=== PATIENT | male | born 1950 | race American Indian/Alaskan Native ===

== ENCOUNTER 2018-01-16 13:07 | Inpatient (IN) | payer MEDICARE ==
--- NOTE | 2018-01-16 13:38 | Emergency Department Report ---
ED Shortness of Breath HPI - General Chief Complaint: Dyspnea/Respdistress Stated Complaint: DIFFICULTY OF BREATHING Time Seen by Provider: 01/16/18 13:36 Source: patient, EMS Mode of arrival: Stretcher Limitations: No Limitations - History of Present Illness Initial Comments: Patient was transferred from the cardiology clinic where he was seen this morning and they noticed that she seemed short of breath they called ambulance and transferred him to the emergency room. Patient has a history of atrial fibrillation and congestive heart failure with ejection fraction of 10%. MD Complaint: shortness of breath, chest pain -: Sudden Radiation: left arm Severity: mild Pain Scale: 2 Quality: aching Consistency: now resolved Improves With: oxygen Worsens With: nothing Known History Of: congestive heart failure Associated Symptoms: denies other symptoms Treatments Prior to Arrival: oxygen - Related Data Home Medications Medication Instructions Recorded Confirmed Last Taken Garlic 1,500 mg PO QDAY 10/21/15 01/16/18 01/03/16 1500mg Pumpkin Seed Oil/Saw [place] 1 tab PO QDAY 10/21/15 01/16/18 01/03/16 1 tab Previous Rx's Medication Instructions Recorded Last Taken Type Arginine [l-Arginine] 500 mg PO QDAY #30 capsule 12/04/17 Unknown Rx B-12 5,000 Mcg Subl 2,500 mcg SL 1XW #30 12/04/17 Unknown Rx Carvedilol [Coreg] 12.5 mg PO BID #60 tablet 12/04/17 Unknown Rx Cholecalciferol Vit D3 [Vitamin D3] 2,000 unit PO DAILY #30 tablet 12/04/17 Unknown Rx Digoxin [Lanoxin] 0.125 mg PO DAILY@1700 #30 tablet 12/04/17 Unknown Rx Furosemide [Lasix TAB] 20 mg PO BID #60 tablet 12/04/17 Unknown Rx Multivitamin Tab W-MINERAL 1 each PO QDAY #30 tablet 12/04/17 Unknown Rx [Multiple Vitamin/Mineral (Theragran M)] [place]-3 Fatty Acids/Fish Oil [Fish 1,000 mg PO DAILY #30 capsule 12/04/17 Unknown Rx Oil] Potassium Chloride [K-Dur] 10 meq PO DAILY #30 tablet 12/04/17 Unknown Rx Pravastatin [Pravachol] 20 mg PO QDAY #30 tablet 12/04/17 Unknown Rx Rivaroxaban [Xarelto] 20 mg PO QDAY #30 tablet 12/04/17 Unknown Rx Sacubitril/Valsartan [Entresto 97 1 each PO DAILY #30 tablet 12/04/17 Unknown Rx mg-103 mg Tablet] Spironolactone [Aldactone] 25 mg PO DAILY #30 tablet 12/04/17 Unknown Rx Ubidecarenone [Co Q-10] 200 mg PO DAILY #30 capsule 12/04/17 Unknown Rx Allergies Allergy/AdvReac Type Severity Reaction Status Date / Time No Known Allergies Allergy Unverified 10/20/15 14:56 ED Review of Systems ROS: Stated complaint: DIFFICULTY OF BREATHING Other details as noted in HPI Comment: All other systems reviewed and negative Constitutional: denies: chills, fever Eyes: denies: eye pain ENT: denies: ear pain Respiratory: orthopnea, shortness of breath, SOB with exertion, SOB at rest Cardiovascular: chest pain, dyspnea on exertion, orthopnea, edema Endocrine: no symptoms reported Gastrointestinal: denies: abdominal pain, nausea, vomiting Genitourinary: denies: urgency, dysuria, frequency Musculoskeletal: denies: back pain Skin: denies: rash, lesions Neurological: denies: headache, weakness, numbness, paresthesias Psychiatric: denies: anxiety, depression Hematological/Lymphatic: denies: easy bleeding, easy bruising ED Past Medical Hx - Past Medical History Hx Hypertension: Yes Hx CVA: No Hx Heart Attack/AMI: Yes Hx Congestive Heart Failure: Yes Hx Diabetes: No Hx Deep Vein Thrombosis: No Hx Pulmonary Embolism: No Hx GERD: Yes Hx Liver Disease: No Hx Renal Disease: No Hx Sickle Cell Disease: No Hx Arthritis: No Hx Headaches / Migraines: No Hx Seizures: No Hx Kidney Stones: No Hx Psychiatric Treatment: No Hx Asthma: No Hx COPD: Yes Hx Tuberculosis: No Hx Dementia: No Hx HIV: No - Surgical History Hx Coronary Stent: No Hx Open Heart Surgery: No Hx Pacemaker: No Hx Internal Defibrillator: Yes Hx Cholecystectomy: No Hx Appendectomy: No Hx Breast Surgery: No Additional Surgical History: Cardiac Cath,Biopsy - Social History Smoking Status: Current Some Day Smoker - Medications Home Medications: Home Medications Medication Instructions Recorded Confirmed Last Taken Type Garlic 1,500 mg PO QDAY 10/21/15 01/16/18 01/03/16 History 1500mg Pumpkin Seed Oil/Saw [place] 1 tab PO QDAY 10/21/15 01/16/18 01/03/16 History 1 tab Arginine [l-Arginine] 500 mg PO QDAY #30 capsule 12/04/17 01/16/18 Unknown Rx B-12 5,000 Mcg Subl 2,500 mcg SL 1XW #30 12/04/17 01/16/18 Unknown Rx Carvedilol [Coreg] 12.5 mg PO BID #60 tablet 12/04/17 01/16/18 Unknown Rx Cholecalciferol Vit D3 [Vitamin D3] 2,000 unit PO DAILY #30 tablet 12/04/17 Unknown Rx Digoxin [Lanoxin] 0.125 mg PO DAILY@1700 #30 tablet 12/04/17 01/16/18 Unknown Rx Furosemide [Lasix TAB] 20 mg PO BID #60 tablet 12/04/17 01/16/18 Unknown Rx Multivitamin Tab W-MINERAL 1 each PO QDAY #30 tablet 12/04/17 01/16/18 Unknown Rx [Multiple Vitamin/Mineral (Theragran M)] [place]-3 Fatty Acids/Fish Oil [Fish 1,000 mg PO DAILY #30 capsule 12/04/17 Unknown Rx Oil] Potassium Chloride [K-Dur] 10 meq PO DAILY #30 tablet 12/04/17 01/16/18 Unknown Rx Pravastatin [Pravachol] 20 mg PO QDAY #30 tablet 12/04/17 01/16/18 Unknown Rx Rivaroxaban [Xarelto] 20 mg PO QDAY #30 tablet 12/04/17 01/16/18 Unknown Rx Sacubitril/Valsartan [Entresto 97 1 each PO DAILY #30 tablet 12/04/17 01/16/18 Unknown Rx mg-103 mg Tablet] Spironolactone [Aldactone] 25 mg PO DAILY #30 tablet 12/04/17 01/16/18 Unknown Rx Ubidecarenone [Co Q-10] 200 mg PO DAILY #30 capsule 12/04/17 01/16/18 Unknown Rx ED Physical Exam - General Limitations: No Limitations General appearance: alert, in distress - Head Head exam: Present: atraumatic, normocephalic, normal inspection - Eye Eye exam: Present: normal appearance, PERRL, EOMI Pupils: Present: normal accommodation - ENT ENT exam: Present: normal exam, normal orophraynx, mucous membranes moist - Neck Neck exam: Present: normal inspection, full ROM. Absent: tenderness - Respiratory Respiratory exam: Present: normal lung sounds bilaterally, rales, rhonchi. Absent: respiratory distress, wheezes, stridor - Cardiovascular Cardiovascular Exam: Present: tachycardia, S3 - GI/Abdominal GI/Abdominal exam: Present: soft, normal bowel sounds. Absent: distended, tenderness, guarding, rebound, rigid - Extremities Exam Extremities exam: Present: normal inspection, full ROM, normal capillary refill , pedal edema. Absent: tenderness - Back Exam Back exam: Present: normal inspection, full ROM. Absent: tenderness - Neurological Exam Neurological exam: Present: alert, oriented X3, CN II-XII intact - Psychiatric Psychiatric exam: Present: normal affect, normal mood - Skin Skin exam: Present: warm, dry, intact, normal color. Absent: rash ED Course Vital Signs 01/16/18 01/16/18 01/16/18 13:22 13:31 13:38 Temperature 97.8 F Pulse Rate 106 H Respiratory 37 H 32 H Rate Blood Pressure 99/71 O2 Sat by Pulse 83 L 96 Oximetry 01/16/18 13:45 Temperature Pulse Rate 114 H Respiratory 34 H Rate Blood Pressure 109/74 O2 Sat by Pulse Oximetry - Reevaluation(s) Reevaluation #1: 01/16/18 16:34 Patient was seen in the ED by the mercantile agent and their recommendations for patient management including admission to the hospitalist was documented. The patient will be admitted to the hospital by the hospitalist bonbon dipper Dr. Fernández for further evaluation and management in conjunction with cardiology service. ED Medical Decision Making - Lab Data Result diagrams: 01/16/18 13:48 01/16/18 13:48 - EKG Data -: EKG Interpreted by Me Rate: tachycardia - EKG Data When compared to previous EKG there are: no significant change Interpretation: nonspecific ST-T wave shavonne 01/16/18 16:28 Atrial Fibrillation with RVR, No STEMI. - Radiology Data Radiology results: report reviewed, image reviewed - Medical Decision Making CHF Exacerbation. Shortness of Breath. Atrial fibrillation with RVR. Critical Care Time: Yes Critical care time in (mins) excluding proc time.: 45 Critical care attestation.: If time is entered above; I have spent that time in minutes in the direct care of this critically ill patient, excluding procedure time. ED Disposition Clinical Impression: Atrial fibrillation with RVR, Elevated troponin, NSTEMI (non-ST elevated myocardial infarction), Shortness of breath CHF exacerbation Qualifiers: Heart failure type: unspecified Qualified Code(s): I50.9 - Heart failure, unspecified CHF exacerbation Qualifiers: Heart failure type: unspecified Qualified Code(s): I50.9 - Heart failure, unspecified Disposition: OP ADMIT IP TO THIS HOSP Is pt being admited?: Yes Does the pt Need Aspirin: Yes Condition: Stable Referrals: PRIMARY CARE, [Primary Care Provider] - 3-5 Days Time of Disposition: 16:00
[2018-01-16 14:03] LABS: Basophils % (Auto) 0.8 % (0.0-1.8); Eosinophils # (Auto) 0.1 K/mm3 (0.0-0.4); Eosinophils % (Auto) 1.7 % (0.0-4.3); Hematocrit 40.1 % (35.5-45.6); Hemoglobin 13.8 gm/dl (11.8-15.2); Lymphocytes # (Auto) 0.7 K/mm3 (1.2-5.4); Lymphocytes % (Auto) 18.4 % (13.4-35.0); Mean Corpuscular HGB Conc 34 % (32-34); Mean Corpuscular Hemoglobin 37 pg (28-32); Mean Corpuscular Volume 107 fl (84-94); Monocytes # (Auto) 0.4 K/mm3 (0.0-0.8); Monocytes % (Auto) 10.6 % (0.0-7.3); Red Blood Count 3.77 M/mm3 (3.65-5.03); Red Cell Distribution Width 14.3 % (13.2-15.2)
[2018-01-16 14:04] LABS: Platelet Count 97 K/mm3 (140-440)
[2018-01-16 14:18] LABS: INR 4.82 (0.87-1.13)
[2018-01-16 14:19] LABS: Partial Thromboplastin Time 47.9 Sec. (24.2-36.6)
[2018-01-16 14:23] LABS: Creatine Kinase MB 1.5 ng/mL (0.0-4.0)
[2018-01-16 14:26] LABS: Alanine Aminotransferase 17 units/L (7-56); Albumin 3.8 g/dL (3.9-5); BUN/Creatinine Ratio 47; Blood Urea Nitrogen 66 mg/dL (9-20); Calcium 9.8 mg/dL (8.4-10.2); Hemolysis Index 3
[2018-01-16 14:37] LABS: HDL Cholesterol 30 mg/dL (40-59); LDL Cholesterol,Direct 49 mg/dL (50-130)
[2018-01-16 14:43] LABS: Bilirubin,Urine NEG (Negative); Blood,Urine NEG (Negative); Color,Urine Yellow (Yellow); Hyaline Casts,Urine 3 /LPF; Protein,Urine <15 mg/dL mg/dL (Negative)
--- NOTE | 2018-01-16 15:00 | Consultation ---
History of Present Illness Consult date: 01/16/18 Requesting physician: TIGIST DEJESUS Consult reason: atrial fibrillation, congestive heart failure History of present illness: The pt is a 67-year-old male with a past medical history of significant for NICMP, chronic systolic HF, AICD in situ, chronic atrial fibrillation (was anticoagulated on Xarelto), CKD, HTN, HLP, ETOH use, tobacco use, noncompliance. He is followed in our office by Dr. Richards. He presented to our [place] office today for labs and device check and voiced complaints of fatigue, progressively worsening SOB, BLE edema. He was also found to have AFib with RVR. He was referred to ED for further eval/management. He states that his symptoms have been present for about 4 days. He denies any chest pain, palpitations, n/v, diaphoresis, dizziness or syncope. He reports compliance with his medication regimen. He reports that he quit drinking alcohol 1 week ago. LHC done 10/2015 showed normal coronaries, large epicardial vessels, severe LV dysfunction. Echo done 11/2017 showed EF 5-10%, LV severely dilated, mild LVH, restrictive diastolic filling, RV mod dilated, RV systolic function mildly reduced, pacemaker wire in RV, RA severely dilated, severe MR, mod to severe TR, pulm HTN with RVSP 67mmHg, trivial pericardial effusion. Past History Past Medical History: heart failure, hypertension, hyperlipidemia Social history: alcohol abuse. denies: smoking Medications and Allergies Allergies Allergy/AdvReac Type Severity Reaction Status Date / Time No Known Allergies Allergy Unverified 10/20/15 14:56 Home Medications Medication Instructions Recorded Confirmed Last Taken Type Garlic 1,500 mg PO QDAY 10/21/15 12/01/17 01/03/16 History 1500mg Pumpkin Seed Oil/Saw [place] 1 tab PO QDAY 10/21/15 12/01/17 01/03/16 History 1 tab Arginine [l-Arginine] 500 mg PO QDAY #30 capsule 12/04/17 Unknown Rx B-12 5,000 Mcg Subl 2,500 mcg SL 1XW #30 12/04/17 Unknown Rx Carvedilol [Coreg] 12.5 mg PO BID #60 tablet 12/04/17 Unknown Rx Cholecalciferol Vit D3 [Vitamin D3] 2,000 unit PO DAILY #30 tablet 12/04/17 Unknown Rx Digoxin [Lanoxin] 0.125 mg PO DAILY@1700 #30 tablet 12/04/17 Unknown Rx Furosemide [Lasix TAB] 20 mg PO BID #60 tablet 12/04/17 Unknown Rx Multivitamin Tab W-MINERAL 1 each PO QDAY #30 tablet 12/04/17 Unknown Rx [Multiple Vitamin/Mineral (Theragran M)] [place]-3 Fatty Acids/Fish Oil [Fish 1,000 mg PO DAILY #30 capsule 12/04/17 Unknown Rx Oil] Potassium Chloride [K-Dur] 10 meq PO DAILY #30 tablet 12/04/17 Unknown Rx Pravastatin [Pravachol] 20 mg PO QDAY #30 tablet 12/04/17 Unknown Rx Rivaroxaban [Xarelto] 20 mg PO QDAY #30 tablet 12/04/17 Unknown Rx Sacubitril/Valsartan [Entresto 97 1 each PO DAILY #30 tablet 12/04/17 Unknown Rx mg-103 mg Tablet] Spironolactone [Aldactone] 25 mg PO DAILY #30 tablet 12/04/17 Unknown Rx Ubidecarenone [Co Q-10] 200 mg PO DAILY #30 capsule 12/04/17 Unknown Rx Review of Systems Constitutional: no fever, no chills, no sweats Ears, nose, mouth and throat: no ear pain, no nose pain, no sinus pressure, no sinus pain Cardiovascular: orthopnea, edema, shortness of breath, dyspnea on exertion, paroxysmal nocturnal dyspnea, leg edema, no chest pain, no palpitations, no rapid/irregular heart beat, no syncope, no lightheadedness, no high blood pressure Respiratory: shortness of breath, dyspnea on exertion, no cough, no congestion, no wheezing, no pain on inspiration Gastrointestinal: no abdominal pain, no nausea, no vomiting, no diarrhea, no constipation, no change in bowel habits Genitourinary Male: no dysuria, no hematuria, no flank pain, no discharge, no urinary frequency, no urinary hesitancy Musculoskeletal: no neck stiffness, no neck pain, no shooting arm pain, no arm numbness/tingling, no low back pain, no shooting leg pain, no leg numbness/ tingling, no redness of joints Integumentary: no rash, no pruritis, no redness, no sores, no wounds Neurological: no head injury, no paralysis, no weakness, no parathesias, no numbness, no tingling, no seizures, no syncope Psychiatric: no anxiety Endocrine: no cold intolerance, no heat intolerance Hematologic/Lymphatic: no easy bruising, no easy bleeding Allergic/Immunologic: no urticaria, no wheezing Physical Examination Vital Signs Pulse Ox 83 L 01/16/18 13:22 General appearance: no acute distress HEENT: Positive: PERRL, Normocephaly, Mucus Membranes Moist Neck: Positive: neck supple, trachea midline Cardiac: Positive: irregularly irregular, S1/S2 Lungs: Positive: Decreased Breath Sounds Neuro: Positive: Grossly Intact Abdomen: Positive: Soft. Negative: Tender Skin: Negative: Rash Musculoskeletal: No Pain Extremities: Present: +2 Edema (BLE) Results 01/16/18 13:48 01/16/18 13:48 Cardiac Enzymes 01/16/18 Range/Units 13:48 AST 25 (5-40) units/L CK-MB (CK-2) 1.5 (0.0-4.0) ng/mL Coagulation 01/16/18 Range/Units 13:48 PT 45.5 H (12.2-14.9) Sec. INR 4.82 H (0.87-1.13) APTT 47.9 H (24.2-36.6) Sec. Lipids 01/16/18 Range/Units 13:48 Triglycerides 79 (2-149) mg/dL Cholesterol 84 (50-199) mg/dL HDL Cholesterol 30 L (40-59) mg/dL Cholesterol/HDL Ratio 2.80 % CBC 01/16/18 Range/Units 13:48 WBC 4.0 L (4.5-11.0) K/mm3 RBC 3.77 (3.65-5.03) M/mm3 Hgb 13.8 (11.8-15.2) gm/dl Hct 40.1 (35.5-45.6) % Plt Count 97 L (140-440) K/mm3 Lymph # 0.7 L (1.2-5.4) K/mm3 [place] # 0.4 (0.0-0.8) K/mm3 Eos # 0.1 (0.0-0.4) K/mm3 Baso # 0.0 (0.0-0.1) K/mm3 Comprehensive Metabolic Panel 01/16/18 Range/Units 13:48 Sodium 135 L (137-145) mmol/L Potassium 4.6 (3.6-5.0) mmol/L Chloride 98.7 (98-107) mmol/L Carbon Dioxide 22 (22-30) mmol/L BUN 66 H (9-20) mg/dL Creatinine 1.4 (0.8-1.5) mg/dL Glucose 111 H (75-100) mg/dL Calcium 9.8 (8.4-10.2) mg/dL AST 25 (5-40) units/L ALT 17 (7-56) units/L Alkaline Phosphatase 64 (35-129) units/L Total Protein 7.5 (6.3-8.2) g/dL Albumin 3.8 L (3.9-5) g/dL - Imaging and Cardiology Echo: report reviewed (11/2017 showed EF 5-10%, LV severely dilated, mild LVH, restrictive diastolic filling, RV mod dilated, RV systolic function mildly reduced, pacemaker wire in RV, RA severely dilated, severe MR, mod to severe TR , pulm HTN with RVSP 67mmHg, trivial pericardial effusion. ) Cardiac cath: report reviewed (10/2015 showed normal coronaries, large epicardial vessels, severe LV dysfunction. ) EKG: report reviewed, image reviewed EKG interpretations - Telemetry EKG Rhythm: Atrial Fibrillation - EKG Supraventricular dysrhythmia: atrial fibrillation Assessment and Plan Assessment: Acute on chronic combined systolic and diastolic HF NICMP - EF 5-10% AICD in situ Chronic atrial fibrillation with RVR --> CVR; anticoagulated with Xarelto Minimally elevated troponins - pt denies chest pain; ECG with no acute ischemic changes; nonspecific in setting of acute HF CKD HTN HLP NSVT ETOH use / tobacco use - cessation encouraged H/o noncompliance Plan: Initiate diuresis with IV lasix. Resume home cardiac regimen. Obtain digoxin level. Pt is currently in Afib with CVR. Assessment and plan reviewed with pt at bedside. The patient has been seen in conjunction with Dr. Marshall who agrees with the assessment and plan of care.
--- NOTE | 2018-01-16 15:38 | History and Physical Report ---
History of Present Illness Chief complaint: I cant breathe History of present illness: 67 YO Male with Systolic CHF, Atrial Fib currently on therapeutic anticoagulation, HTN, ETOH Dependence with last drink 1 week ago, HLD, Noncompliance presents to ED for evaluation. Pt states that he has experienced shortness of breath, Orthopnea/PND, bilateral leg swelling and feeling bloated over the past 4 days with worsening symptoms over the past 1 day. Pt was seen and evaluated in his rn appeals's office and was found to have A Fib with RVR and was sent to ED for evaluation. Pt denies fever, chills, CP, Palpitations, Trauma, Tremors, Syncope, Seizures, NVD, diaphoresis, agitation, skin rash, or recent ill contacts. Pt seen and evaluated in ED and found to have CHF Decompensation, Acute Respiratory Failure, and Atrial Fib with RVR. PT admitted to telemetry. Cardiology team consulted in ED. Past History Past Medical History: heart failure, hypertension, hyperlipidemia Past Surgical History: No surgical history, Other (reviewed) Social history: single, alcohol abuse. denies: smoking Family history: no significant family history (reviewed) Medications and Allergies Allergies Allergy/AdvReac Type Severity Reaction Status Date / Time No Known Allergies Allergy Unverified 10/20/15 14:56 Home Medications Medication Instructions Recorded Confirmed Last Taken Type Garlic 1,500 mg PO QDAY 10/21/15 01/16/18 01/03/16 History 1500mg Pumpkin Seed Oil/Saw [place] 1 tab PO QDAY 10/21/15 01/16/18 01/03/16 History 1 tab Arginine [l-Arginine] 500 mg PO QDAY #30 capsule 12/04/17 01/16/18 Unknown Rx B-12 5,000 Mcg Subl 2,500 mcg SL 1XW #30 12/04/17 01/16/18 Unknown Rx Carvedilol [Coreg] 12.5 mg PO BID #60 tablet 12/04/17 01/16/18 Unknown Rx Cholecalciferol Vit D3 [Vitamin D3] 2,000 unit PO DAILY #30 tablet 12/04/17 Unknown Rx Digoxin [Lanoxin] 0.125 mg PO DAILY@1700 #30 tablet 12/04/17 01/16/18 Unknown Rx Furosemide [Lasix TAB] 20 mg PO BID #60 tablet 12/04/17 01/16/18 Unknown Rx Multivitamin Tab W-MINERAL 1 each PO QDAY #30 tablet 12/04/17 01/16/18 Unknown Rx [Multiple Vitamin/Mineral (Theragran M)] [place]-3 Fatty Acids/Fish Oil [Fish 1,000 mg PO DAILY #30 capsule 12/04/17 Unknown Rx Oil] Potassium Chloride [K-Dur] 10 meq PO DAILY #30 tablet 12/04/17 01/16/18 Unknown Rx Pravastatin [Pravachol] 20 mg PO QDAY #30 tablet 12/04/17 01/16/18 Unknown Rx Rivaroxaban [Xarelto] 20 mg PO QDAY #30 tablet 12/04/17 01/16/18 Unknown Rx Sacubitril/Valsartan [Entresto 97 1 each PO DAILY #30 tablet 12/04/17 01/16/18 Unknown Rx mg-103 mg Tablet] Spironolactone [Aldactone] 25 mg PO DAILY #30 tablet 12/04/17 01/16/18 Unknown Rx Ubidecarenone [Co Q-10] 200 mg PO DAILY #30 capsule 12/04/17 01/16/18 Unknown Rx Active Meds: Active Medications Carvedilol (Coreg) 12.5 mg PO BID [facility] Cholecalciferol (Vitamin D3) 2,000 unit PO DAILY [facility] Digoxin (Lanoxin) 0.125 mg PO DAILY@1700 [facility] Furosemide (Lasix) 40 mg IV 0600,1800 [facility] Pravastatin Sodium (Pravachol) 20 mg PO QDAY [facility] Rivaroxaban (Xarelto) 20 mg PO QDAY [facility]; Protocol Spironolactone (Aldactone) 25 mg PO DAILY [facility] Review of Systems Constitutional: weight gain, no weight loss, no fever, no chills Ears, nose, mouth and throat: no ear pain, no ear discharge, no tinnitis, no decreased hearing, no nose pain, no nasal congestion Cardiovascular: orthopnea, shortness of breath, dyspnea on exertion, paroxysmal nocturnal dyspnea, leg edema, no chest pain, no syncope, no lightheadedness Respiratory: no cough, no cough with sputum, no excessive sputum, no hemoptysis Gastrointestinal: no nausea, no vomiting, no diarrhea Genitourinary Male: no hematuria, no flank pain, no discharge, no urinary frequency, no urinary hesitancy, no nocturia, no incontinence Rectal: no pain, no incontinence, no bleeding Musculoskeletal: no neck stiffness, no neck pain, no shooting arm pain, no arm numbness/tingling, no low back pain, no shooting leg pain Integumentary: no rash, no pruritis, no redness, no sores, no wounds Neurological: no transient paralysis, no paralysis, no weakness, no parathesias , no numbness, no tingling, no seizures, no syncope Psychiatric: no anxiety, no memory loss, no change in sleep habits, no sleep disturbances, no insomnia, no hypersomnia Endocrine: no cold intolerance, no heat intolerance, no polyphagia, no excessive thirst, no polydipsia, no polyuria Hematologic/Lymphatic: no easy bruising, no easy bleeding, no lymphadenopathy, no lymphedema Allergic/Immunologic: no urticaria, no allergic rhinitis, no wheezing, no persistent infections, no anaphylaxis, no angioedema Exam - Constitutional Vitals: Temp Pulse Resp BP Pulse Ox 97.8 F 114 H 34 H 109/74 96 01/16/18 13:38 01/16/18 13:45 01/16/18 13:45 01/16/18 13:45 01/16/18 13:31 General appearance: Present: mild distress - EENT Eyes: Present: PERRL ENT: hearing intact, clear oral mucosa - Neck Neck: Present: supple, normal ROM - Respiratory Respiratory effort: labored Respiratory: bilateral: diminished, rhonchi - Cardiovascular Rhythm: irregularly irregular Heart Sounds: Present: S1 & S2. Absent: rub, click - Extremities Extremities: pulses symmetrical, No edema Extremity abnormal: edema Peripheral Pulses: within normal limits - Abdominal General gastrointestinal: Present: soft, non-tender, non-distended, normal bowel sounds Male genitourinary: Present: normal - Integumentary Integumentary: Present: clear, warm, dry - Musculoskeletal Musculoskeletal: generalized weakness - Psychiatric Psychiatric: appropriate mood/affect, intact judgment & insight - Neurologic Neurologic: CNII-XII intact, moves all extremities Results - Labs CBC & Chem 7: 01/16/18 13:48 01/16/18 13:48 Labs: Abnormal lab results 01/16/18 01/16/18 01/16/18 Range/Units 13:48 13:48 13:48 WBC 4.0 L (4.5-11.0) K/mm3 MCV 107 H (84-94) fl MCH 37 H (28-32) pg Plt Count 97 L (140-440) K/mm3 [place] % (Auto) 10.6 H (0.0-7.3) % Lymph # 0.7 L (1.2-5.4) K/mm3 PT 45.5 H (12.2-14.9) Sec. INR 4.82 H (0.87-1.13) APTT 47.9 H (24.2-36.6) Sec. Sodium 135 L (137-145) mmol/L BUN 66 H (9-20) mg/dL Glucose 111 H (75-100) mg/dL Total Bilirubin 5.80 H (0.1-1.2) mg/dL Total Creatine Kinase 42 L (55-170) units/L Troponin T 0.058 H (0.00-0.029) ng/mL Albumin 3.8 L (3.9-5) g/dL LDL Cholesterol Direct 49 L (50-130) mg/dL HDL Cholesterol 30 L (40-59) mg/dL Assessment and Plan - Patient Problems (1) Respiratory failure Current Visit: Yes Status: Acute Qualifiers: Chronicity: acute Respiratory failure complication: hypoxia Qualified Code(s): J96.01 - Acute respiratory failure with hypoxia Plan to address problem: Supplemental oxygen, nebulizer therapy, Chest x ray, pulse oximetry, NIPPV as clinically indicated, suspected secondary to CHF decompensation. Treat CHF, diuresis. (2) Atrial fibrillation with RVR Current Visit: Yes Status: Acute Plan to address problem: Rate control, continue therapeutic anticoagulation, cardiology consulted in ED, admit to telemetry. (3) Acute on chronic systolic heart failure Current Visit: No Status: Acute Plan to address problem: Admit to telemetry, afterload reduction, strict I/O, daily weight, monitor uop q shift, cardiology consulted in ED, chest x ray, pulse oximetry, (4) EtOH dependence Current Visit: Yes Status: Acute Qualifiers: Complication of substance-induced condition: with unspecified complication Plan to address problem: Thiamine, folic, acid, multivitamin, CIWA scale, (5) Abnormal LFTs (liver function tests) Current Visit: Yes Status: Acute Plan to address problem: Fractionated bilirubin, suspected secondary to ETOH liver disease. (6) DVT prophylaxis Current Visit: Yes Status: Acute Plan to address problem: SCD to BLE while in bed
[2018-01-16] MEDS ORDERED: ZOFRAN IV PRN (15:50)
[2018-01-16] MEDS ORDERED: PROVENTIL IH PRN (15:50)
[2018-01-16] MEDS ORDERED: SODIUM CHLORIDE FLUSH SYRINGE 10 ML IV PRN (15:50)
[2018-01-16] MEDS ORDERED: TYLENOL PO PRN (15:50)
[2018-01-16] MEDS ORDERED: VITAMIN B-1 PO ONE (15:56)
[2018-01-16] MEDS ORDERED: THERAGRAN Tab PO ONE (15:56)
--- NOTE | 2018-01-16 16:33 | XRay Report ---
FINAL REPORT EXAM: XR CHEST 1V AP HISTORY: Dyspnea TECHNIQUE: Frontal portable view of the chest Comparison: Chest x-ray dated December 01, 2017 FINDINGS: There is prominence of the interstitial markings in both lungs similar in appearance to the previous study. There is no evidence of focal infiltrate, pneumothorax or pleural fluid collection. The cardiac silhouette is enlarged similar in appearance to the previous study with single lead AICD. There is prominence of the pulmonary venous vasculature consistent with pulmonary venous congestion. This is similar in appearance to the previous study. The thoracic aorta is mildly tortuous. The bony structures are unremarkable. Visualization detail of the thoracic spine is limited. IMPRESSION: 1. Enlarged cardiac silhouette with AICD and evidence of pulmonary venous congestion similar in appearance to the previous study dated December 01, 2017.
[2018-01-16] MEDS: LASIX IV SCH (18:02)
[2018-01-16] MEDS: LANOXIN PO SCH (18:35)
[2018-01-16 18:40] LABS: Bilirubin,Direct 3.1 mg/dL (0-0.2)
[2018-01-16] MEDS ORDERED: COREG PO SCH (22:00)
[2018-01-17] MEDS: COREG PO SCH ×3 (05:05→22:28)
[2018-01-17] MEDS: SODIUM CHLORIDE FLUSH SYRINGE 10 ML IV SCH ×3 (05:05→22:00)
[2018-01-17] MEDS: ATIVAN IV PRN (05:06)
[2018-01-17] MEDS: LASIX IV SCH (05:06)
[2018-01-17 06:06] LABS: Albumin 3.5 g/dL (3.9-5); Bilirubin,Direct 2.9 mg/dL (0-0.2); Calcium 9.7 mg/dL (8.4-10.2)
[2018-01-17] MEDS ORDERED: NON-FORMULARY (Sacubitril/Valsartan [Entresto 97 Mg-103 Mg Tablet] 1 EACH) PO SCH (10:00)
[2018-01-17] MEDS: VITAMIN D3 PO SCH (11:09)
[2018-01-17] MEDS: FOLVITE PO SCH (11:09)
[2018-01-17] MEDS: XARELTO PO SCH (11:09)
[2018-01-17] MEDS: PRAVACHOL PO SCH (11:10)
--- NOTE | 2018-01-17 14:10 | Progress Note ---
Assessment and Plan Consult on 01/16/2018>The pt is a 67-year-old male with a past medical history of significant for NICMP, chronic systolic HF, AICD in situ, chronic atrial fibrillation (was anticoagulated on Xarelto), CKD, HTN, HLP, ETOH use, tobacco use, noncompliance. He is followed in our office by Dr. Richards. He presented to our [place] office today for labs and device check and voiced complaints of fatigue, progressively worsening SOB, BLE edema. He was also found to have AFib with RVR. He was referred to ED for further eval/management. He states that his symptoms have been present for about 4 days. He denies any chest pain, palpitations, n/v, diaphoresis, dizziness or syncope. He reports compliance with his medication regimen. He reports that he quit drinking alcohol 1 week ago. LHC done 10/2015 showed normal coronaries, large epicardial vessels, severe LV dysfunction. Echo done 11/2017 showed EF 5-10%, LV severely dilated, mild LVH, restrictive diastolic filling, RV mod dilated, RV systolic function mildly reduced, pacemaker wire in RV, RA severely dilated, severe MR, mod to severe TR, pulm HTN with RVSP 67mmHg, trivial pericardial effusion. 01/17/2018>still very sob. Patient in atrial fibrillation with slavos of PVC's 3 beats and 5 beats and longest 14 beats,asymptomatic). Monitor adim,continue present rx. Subjective Date of service: 01/17/18 Interval history: Patient still SOB,diuressing well. Objective Vital Signs Temp Pulse Resp BP BP Pulse Ox 01/17/18 09:09 97.9 F 55 L 24 107/83 99 01/17/18 04:36 98.1 F 54 L 22 98/77 95 01/17/18 00:31 97.5 F L 50 L 18 91/76 96 01/16/18 23:00 110 H 01/16/18 22:32 38 L 104/74 96 01/16/18 22:00 96 01/16/18 21:31 114 H 22 124/63 01/16/18 21:01 121 H 38 H 113/81 91 01/16/18 20:01 104 H 33 H 101/78 94 01/16/18 19:01 101 H 26 H 99/78 95 01/16/18 18:01 98 H 36 H 104/81 98 01/16/18 17:19 99 H 33 H 96 01/16/18 15:01 109/74 98 01/16/18 14:41 99 - Physical Examination HEENT: Positive: PERRL, Normocephaly, Mucus Membranes Moist Neck: Positive: neck supple, trachea midline Cardiac: Positive: irregularly irregular Neuro: Positive: Grossly Intact Abdomen: Positive: Soft. Negative: Tender Skin: Negative: Rash Musculoskeletal: No Pain Extremities: Present: +2 Edema (BLE) - Labs and Meds Cardiac Enzymes 01/16/18 01/17/18 Range/Units 13:48 05:02 AST 25 21 (5-40) units/L CK-MB (CK-2) 1.5 (0.0-4.0) ng/mL Coagulation 01/16/18 Range/Units 13:48 PT 45.5 H (12.2-14.9) Sec. INR 4.82 H (0.87-1.13) APTT 47.9 H (24.2-36.6) Sec. Lipids 01/16/18 Range/Units 13:48 Triglycerides 79 (2-149) mg/dL Cholesterol 84 (50-199) mg/dL HDL Cholesterol 30 L (40-59) mg/dL Cholesterol/HDL Ratio 2.80 % Comprehensive Metabolic Panel 01/16/18 01/16/18 01/17/18 Range/Units 13:48 17:51 05:02 Sodium 135 L 138 (137-145) mmol/L Potassium 4.6 4.5 (3.6-5.0) mmol/L Chloride 98.7 96.8 L (98-107) mmol/L Carbon Dioxide 22 24 (22-30) mmol/L BUN 66 H 64 H (9-20) mg/dL Creatinine 1.4 1.5 (0.8-1.5) mg/dL Glucose 111 H 91 (75-100) mg/dL Calcium 9.8 9.7 (8.4-10.2) mg/dL Direct Bilirubin 3.1 H 2.9 H (0-0.2) mg/dL Indirect Bilirubin 1.5 1.5 mg/dL AST 25 21 (5-40) units/L ALT 17 15 (7-56) units/L Alkaline Phosphatase 64 62 (35-129) units/L Total Protein 7.5 6.2 L (6.3-8.2) g/dL Albumin 3.8 L 3.5 L (3.9-5) g/dL - Imaging and Cardiology EKG: report reviewed, image reviewed Echo: report reviewed (11/2017 showed EF 5-10%, LV severely dilated, mild LVH, restrictive diastolic filling, RV mod dilated, RV systolic function mildly reduced, pacemaker wire in RV, RA severely dilated, severe MR, mod to severe TR , pulm HTN with RVSP 67mmHg, trivial pericardial effusion. ) Cardiac cath: report reviewed (10/2015 showed normal coronaries, large epicardial vessels, severe LV dysfunction. )
[2018-01-17] MEDS: ENTRESTO 24 - 26 MG PO SCH (14:49)
--- NOTE | 2018-01-17 15:20 | Progress Note ---
Assessment and Plan Acute on chronic systolic HF, - cont lasix, cardiology following - Ef as low as ~10% - monitor daily wt, ins/os NICMP AICD in situ - likely from alcohol abuse - cont current meds Chronic atrial fibrillation - (was anticoagulated on Xarelto) - now on hold for noncompliance, rate controlled, CKD, Monitor renal function HTN, Monitor BP, adjust meds as needed HLP, hold statin for abnormal LFT Abnormal LFT, chronically elevated, order hepatitis panel - likely from alcohol abuse ETOH use, monitor for withdrawl tobacco use, counselled Noncompliance, counselled DVt Px, lovenox Subjective Date of service: 01/17/18 Interval history: Pt seen and examined C/o SOB even in rest, b/l LE swelling No chest pain Daughter at bedside, updated Objective - Constitutional Vitals: Vital Signs - 12hr 01/17/18 01/17/18 01/17/18 04:36 07:00 09:09 Temperature 98.1 F 97.9 F Pulse Rate 54 L 107 H 55 L Respiratory 22 24 Rate Blood Pressure 98/77 Blood Pressure 107/83 [Left] O2 Sat by Pulse 95 99 Oximetry 01/17/18 10:00 Temperature Pulse Rate Respiratory Rate Blood Pressure Blood Pressure [Left] O2 Sat by Pulse 96 Oximetry General appearance: Present: no acute distress, mild distress, disheveled - EENT Eyes: PERRL, EOM intact ENT: hearing intact Ears: bilateral: normal - Neck Neck: supple, normal ROM - Respiratory Respiratory effort: normal Respiratory: bilateral: rhonchi - Cardiovascular Heart Sounds: Present: S1 & S2. Absent: gallop, rub Extremities: pulses intact, normal color, Full ROM Extremity abnormal: edema - Gastrointestinal General gastrointestinal: Present: soft, non-tender, distended, normal bowel sounds - Integumentary Integumentary: clear, warm, dry - Musculoskeletal Musculoskeletal: generalized weakness - Neurologic Neurologic: moves all extremities - Psychiatric Psychiatric: memory intact, appropriate mood/affect, intact judgment & insight - Labs CBC & Chem 7: 01/16/18 13:48 01/17/18 05:02 Labs: Abnormal lab results 01/16/18 01/16/18 01/16/18 Range/Units 17:51 17:51 17:51 D-Dimer 633.35 H (0-234) ng/mlDDU Chloride (98-107) mmol/L BUN (9-20) mg/dL Magnesium (1.7-2.3) mg/dL Total Bilirubin 4.60 H (0.1-1.2) mg/dL Direct Bilirubin 3.1 H (0-0.2) mg/dL NT-Pro-B Natriuret Pep 67706 H (0-900) pg/mL Total Protein (6.3-8.2) g/dL Albumin (3.9-5) g/dL 01/17/18 Range/Units 05:02 D-Dimer (0-234) ng/mlDDU Chloride 96.8 L (98-107) mmol/L BUN 64 H (9-20) mg/dL Magnesium 1.50 L (1.7-2.3) mg/dL Total Bilirubin 4.40 H (0.1-1.2) mg/dL Direct Bilirubin 2.9 H (0-0.2) mg/dL NT-Pro-B Natriuret Pep (0-900) pg/mL Total Protein 6.2 L (6.3-8.2) g/dL Albumin 3.5 L (3.9-5) g/dL
--- NOTE | 2018-01-18 00:45 | Ultrasound Report ---
FINAL REPORT PROCEDURE: US ABDOMEN COMPLETE TECHNIQUE: Real-time sonography in multiple planes of the abdomen was performed with image documentation. CPT 90138 HISTORY: bilirubin COMPARISON: No prior studies are available for comparison. FINDINGS: Liver: There is fatty infiltration of the liver. There is no discrete mass.. Gallbladder: Gallbladder wall is thickened. There is no pericholecystic fluid. No stones are seen.. Intrahepatic bile ducts: Normal caliber . Extrahepatic bile ducts: Normal caliber. Pancreas: Normal as visualized with suboptimal depiction of the pancreatic tail. Aorta: Visualized portions appear normal. IVC: Visualized portions appear normal. RIGHT kidney: Normal echotexture. No focal renal mass, calculus, or hydronephrosis. Length: 13.1cm. There are multiple cysts. LEFT kidney: Normal echotexture. No focal renal mass, calculus, or hydronephrosis . Length: 12.8cm. There are multiple cysts. Spleen: Normal size and echotexture. There is a 13 millimeter echogenic mass suggesting hemangioma. Intraperitoneal fluid: None . Other: None . IMPRESSION: There is fatty infiltration of the liver. There is no discrete mass.. Gallbladder wall is thickened. There is no pericholecystic fluid. No stones are seen.. Bile ducts are normal in caliber. There are bilateral kidney cysts. There are no stones. There is no hydronephrosis. There is a 13 millimeter echogenic mass in the spleen suggesting hemangioma. There is no ascites. .
[2018-01-18] MEDS: ATIVAN IV PRN (01:07)
[2018-01-18] MEDS: LASIX IV SCH ×3 (06:10→18:20)
[2018-01-18] MEDS: LANOXIN PO SCH ×2 (08:16→18:20)
[2018-01-18] MEDS: ALDACTONE PO SCH ×2 (08:16→10:00)
[2018-01-18] MEDS: XARELTO PO SCH (09:58)
[2018-01-18] MEDS: PRAVACHOL PO SCH (09:58)
[2018-01-18] MEDS: FOLVITE PO SCH (09:58)
[2018-01-18] MEDS: VITAMIN D3 PO SCH (09:58)
[2018-01-18] MEDS: COREG PO SCH ×2 (09:59→22:30)
[2018-01-18] MEDS: SODIUM CHLORIDE FLUSH SYRINGE 10 ML IV SCH ×2 (10:00→22:32)
[2018-01-18] MEDS: ENTRESTO 24 - 26 MG PO SCH (12:13)
--- NOTE | 2018-01-18 14:52 | Progress Note ---
Assessment and Plan Acute respiratory failure, POA - due to pulmonary edema from CHF exacerbation - cont lasix and supplemental O2 - need eval for home O2 requirement - CPAP at night Acute on chronic systolic HF, - cont lasix, cardiology following - Ef as low as ~10% - monitor daily wt, ins/os NICMP AICD in situ - likely from alcohol abuse - cont current meds Chronic atrial fibrillation - anticoagulated on Xarelto - rate controlled with coreg and digoxin CKD, Monitor renal function - Cr at baseline HTN, Monitor BP, adjust meds as needed HLP, started on pravastatin Abnormal LFT, chronically elevated, ordered hepatitis panel - likely from alcohol abuse ETOH use, monitor for withdrawl tobacco use, counselled Noncompliance, counselled Moderate to severe PCM - consult dietary DVt Px, lovenox Subjective Date of service: 01/18/18 Interval history: Pt seen and examined C/o SOB even in rest, b/l LE swelling No chest pain, difficulty to sleep at night Daughter at bedside, updated Objective - Exam Narrative Exam: General appearance: Present: no acute distress, mild distress, disheveled - EENT Eyes: PERRL, EOM intact ENT: hearing intact Ears: bilateral: normal - Neck Neck: supple, normal ROM - Respiratory Respiratory effort: normal Respiratory: bilateral: rhonchi - Cardiovascular Heart Sounds: Present: S1 & S2. Absent: gallop, rub Extremities: pulses intact, normal color, Full ROM Extremity abnormal: edema - Gastrointestinal General gastrointestinal: Present: soft, non-tender, distended, normal bowel sounds - Integumentary Integumentary: clear, warm, dry - Musculoskeletal Musculoskeletal: generalized weakness - Neurologic Neurologic: moves all extremities - Psychiatric Psychiatric: memory intact, appropriate mood/affect, intact judgment & insight - Constitutional Vitals: Vital Signs - 12hr 01/18/18 01/18/18 01/18/18 04:43 09:59 10:00 Temperature 98.1 F Pulse Rate 47 L 52 L 52 L Pulse Rate [ 106 H Apical] Respiratory 17 3 L Rate Blood Pressure 104/83 104/83 Blood Pressure 105/81 [Left] O2 Sat by Pulse 90 100 Oximetry 01/18/18 12:00 Temperature 97.9 F Pulse Rate 41 L Pulse Rate [ Apical] Respiratory 18 Rate Blood Pressure Blood Pressure 84/56 [Left] O2 Sat by Pulse 92 Oximetry - Labs CBC & Chem 7: 01/18/18 15:13 01/18/18 15:13
--- NOTE | 2018-01-18 15:15 | Vascular Lab Report ---
LOWER EXTREMITY VENOUS DUPLEX: REASON FOR EXAM: Short of breath, deep venous thrombosis. COMMENTS ON THE RIGHT: All veins visualized are freely compressible without evidence of internal echogenicity. Flow is spontaneous and phasic throughout. COMMENTS ON THE LEFT: All veins visualized are freely compressible without evidence of internal echogenicity. Flow is spontaneous and phasic throughout. IMPRESSION: No evidence of acute or chronic deep venous thrombosis in either lower extremity.
[2018-01-18 15:25] LABS: Hematocrit 39.9 % (35.5-45.6); Hemoglobin 13.3 gm/dl (11.8-15.2); Mean Corpuscular HGB Conc 33 % (32-34); Mean Corpuscular Hemoglobin 36 pg (28-32); Mean Corpuscular Volume 108 fl (84-94); Platelet Count 102 K/mm3 (140-440); Red Blood Count 3.68 M/mm3 (3.65-5.03); Red Cell Distribution Width 14.3 % (13.2-15.2)
[2018-01-18 15:40] LABS: Alanine Aminotransferase 12 units/L (7-56); Albumin 3.4 g/dL (3.9-5); BUN/Creatinine Ratio 45; Blood Urea Nitrogen 58 mg/dL (9-20); Calcium 9.5 mg/dL (8.4-10.2); Hemolysis Index 1
[2018-01-18 16:24] LABS: Hepatitis B Core IgM Non-Reactive (NonReactive); Hepatitis B Surface Antigen Non-Reactive (Negative); Hepatitis C Virus Antibody Non-Reactive (NonReactive)
--- NOTE | 2018-01-18 19:49 | Progress Note ---
Assessment and Plan Consult on 01/16/2018>The pt is a 67-year-old male with a past medical history of significant for NICMP, chronic systolic HF, AICD in situ, chronic atrial fibrillation (was anticoagulated on Xarelto), CKD, HTN, HLP, ETOH use, tobacco use, noncompliance. He is followed in our office by Dr. Richards. He presented to our [place] office today for labs and device check and voiced complaints of fatigue, progressively worsening SOB, BLE edema. He was also found to have AFib with RVR. He was referred to ED for further eval/management. He states that his symptoms have been present for about 4 days. He denies any chest pain, palpitations, n/v, diaphoresis, dizziness or syncope. He reports compliance with his medication regimen. He reports that he quit drinking alcohol 1 week ago. LHC done 10/2015 showed normal coronaries, large epicardial vessels, severe LV dysfunction. Echo done 11/2017 showed EF 5-10%, LV severely dilated, mild LVH, restrictive diastolic filling, RV mod dilated, RV systolic function mildly reduced, pacemaker wire in RV, RA severely dilated, severe MR, mod to severe TR, pulm HTN with RVSP 67mmHg, trivial pericardial effusion. 01/17/2018>still very sob. Patient in atrial fibrillation with slavos of PVC's 3 beats and 5 beats and longest 14 beats,asymptomatic). Monitor rythm,continue present rx. 01/18/2018>clinically better,diuressing well,in S.R with PVC's in aziza's.Has elevated liver enzymes.?alcohol related. Continue present rx. Subjective Date of service: 01/18/18 Interval history: Patient still SOB,diuressing well. 01/18/2018>feels better,telemetry showing S.R with aziza's of PVC's,3 in row. Objective Vital Signs Temp Pulse Pulse Resp BP BP Pulse Ox 01/18/18 18:20 101 H 108/68 01/18/18 17:33 55 L 20 108/68 94 01/18/18 15:00 93 H 01/18/18 12:00 97.9 F 41 L 18 84/56 92 01/18/18 10:00 52 L 106 H 3 L 104/83 96 01/18/18 09:59 52 L 104/83 01/18/18 07:00 96 H 01/18/18 04:43 98.1 F 47 L 17 105/81 90 01/18/18 00:21 98.3 F 74 18 104/75 90 01/17/18 23:00 74 01/17/18 22:42 100 01/17/18 22:28 50 L 100/75 01/17/18 22:00 74 20 01/17/18 20:24 98.0 F 45 L 18 109/65 98 01/17/18 20:04 98.3 F 106 H 18 109/65 90 - Physical Examination HEENT: Positive: PERRL, Normocephaly, Mucus Membranes Moist Neck: Positive: neck supple, trachea midline Cardiac: Positive: Reg Rate and Rhythm Lungs: Positive: Decreased Breath Sounds Neuro: Positive: Grossly Intact Abdomen: Positive: Soft. Negative: Tender Skin: Negative: Rash Musculoskeletal: No Pain Extremities: Present: +1 Edema, +2 Edema (BLE) - Labs and Meds Cardiac Enzymes 01/18/18 Range/Units 15:13 AST 18 (5-40) units/L CBC 01/18/18 Range/Units 15:13 WBC 3.2 L (4.5-11.0) K/mm3 RBC 3.68 (3.65-5.03) M/mm3 Hgb 13.3 (11.8-15.2) gm/dl Hct 39.9 (35.5-45.6) % Plt Count 102 L (140-440) K/mm3 Comprehensive Metabolic Panel 01/18/18 Range/Units 15:13 Sodium 135 L (137-145) mmol/L Potassium 4.4 (3.6-5.0) mmol/L Chloride 95.7 L (98-107) mmol/L Carbon Dioxide 27 (22-30) mmol/L BUN 58 H (9-20) mg/dL Creatinine 1.3 (0.8-1.5) mg/dL Glucose 113 H (75-100) mg/dL Calcium 9.5 (8.4-10.2) mg/dL AST 18 (5-40) units/L ALT 12 (7-56) units/L Alkaline Phosphatase 62 (35-129) units/L Total Protein 6.8 (6.3-8.2) g/dL Albumin 3.4 L (3.9-5) g/dL - Imaging and Cardiology EKG: report reviewed, image reviewed Echo: report reviewed (11/2017 showed EF 5-10%, LV severely dilated, mild LVH, restrictive diastolic filling, RV mod dilated, RV systolic function mildly reduced, pacemaker wire in RV, RA severely dilated, severe MR, mod to severe TR , pulm HTN with RVSP 67mmHg, trivial pericardial effusion. ) Cardiac cath: report reviewed (10/2015 showed normal coronaries, large epicardial vessels, severe LV dysfunction. )
[2018-01-18] MEDS ORDERED: AMBIEN PO PRN (21:11)
[2018-01-19] MEDS: ATIVAN IV PRN (01:36)
[2018-01-19] MEDS: LASIX IV SCH ×2 (06:50→20:14)
[2018-01-19] MEDS: ALDACTONE PO SCH (09:17)
[2018-01-19] MEDS: VITAMIN D3 PO SCH (09:19)
[2018-01-19] MEDS: FOLVITE PO SCH (09:19)
[2018-01-19] MEDS: XARELTO PO SCH (09:20)
[2018-01-19] MEDS: PRAVACHOL PO SCH (09:20)
[2018-01-19] MEDS: COREG PO SCH (10:00)
--- NOTE | 2018-01-19 12:35 | Progress Note ---
Assessment and Plan Optimize HR - d/c digoxin and initiate PO amio 400mg TID. Plan to reduce amio dosage after loading period. The patient has been seen in conjunction with Dr. Esposito who agrees with the assessment and plan of care. - Patient Problems (1) Acute on chronic combined systolic and diastolic congestive heart failure Current Visit: Yes Status: Acute (2) Non-ischemic cardiomyopathy Current Visit: Yes Status: Chronic (3) S/P implantation of automatic cardioverter/defibrillator (AICD) Current Visit: Yes Status: Chronic (4) Permanent atrial fibrillation Current Visit: Yes Status: Chronic (5) Elevated troponin Current Visit: Yes Status: Acute (6) CKD (chronic kidney disease) Current Visit: Yes Status: Chronic (7) Hypertension Current Visit: Yes Status: Chronic (8) Total bilirubin, elevated Current Visit: Yes Status: Acute (9) EtOH dependence Current Visit: Yes Status: Chronic Qualifiers: Complication of substance-induced condition: with unspecified complication Subjective Date of service: 01/19/18 Principal diagnosis: HF Interval history: pt sitting up at bedside, still with c/o SOB but states he feels as though he is slowly improving. tele reviewed- pt in AFib with intermittent RVR. Objective Last Vital Signs Temp 98.7 F 01/19/18 12:06 Pulse 46 L 01/19/18 12:06 Resp 20 01/19/18 12:06 BP 85/66 01/19/18 12:06 Pulse Ox 97 01/19/18 12:06 - Physical Examination HEENT: Positive: PERRL, Normocephaly, Mucus Membranes Moist Neck: Positive: neck supple, trachea midline Cardiac: Positive: irregularly irregular, S1/S2 Lungs: Positive: Decreased Breath Sounds Neuro: Positive: Grossly Intact Abdomen: Positive: Soft. Negative: Tender Skin: Negative: Rash Musculoskeletal: No Pain Extremities: Absent: edema - Labs and Meds Cardiac Enzymes 01/18/18 Range/Units 15:13 AST 18 (5-40) units/L CBC 01/18/18 Range/Units 15:13 WBC 3.2 L (4.5-11.0) K/mm3 RBC 3.68 (3.65-5.03) M/mm3 Hgb 13.3 (11.8-15.2) gm/dl Hct 39.9 (35.5-45.6) % Plt Count 102 L (140-440) K/mm3 Comprehensive Metabolic Panel 01/18/18 Range/Units 15:13 Sodium 135 L (137-145) mmol/L Potassium 4.4 (3.6-5.0) mmol/L Chloride 95.7 L (98-107) mmol/L Carbon Dioxide 27 (22-30) mmol/L BUN 58 H (9-20) mg/dL Creatinine 1.3 (0.8-1.5) mg/dL Glucose 113 H (75-100) mg/dL Calcium 9.5 (8.4-10.2) mg/dL AST 18 (5-40) units/L ALT 12 (7-56) units/L Alkaline Phosphatase 62 (35-129) units/L Total Protein 6.8 (6.3-8.2) g/dL Albumin 3.4 L (3.9-5) g/dL - Imaging and Cardiology EKG: report reviewed, image reviewed Echo: report reviewed (11/2017 showed EF 5-10%, LV severely dilated, mild LVH, restrictive diastolic filling, RV mod dilated, RV systolic function mildly reduced, pacemaker wire in RV, RA severely dilated, severe MR, mod to severe TR , pulm HTN with RVSP 67mmHg, trivial pericardial effusion. ) Cardiac cath: report reviewed (10/2015 showed normal coronaries, large epicardial vessels, severe LV dysfunction. ) - Telemetry EKG Rhythm: Atrial Fibrillation
[2018-01-19] MEDS: CORDARONE PO SCH ×2 (13:18→22:50)
[2018-01-19] MEDS: SODIUM CHLORIDE FLUSH SYRINGE 10 ML IV SCH ×2 (16:36→23:00)
--- NOTE | 2018-01-19 17:58 | Progress Note ---
Assessment and Plan Acute respiratory failure, POA - due to pulmonary edema from CHF exacerbation - cont lasix and supplemental O2 - need eval for home O2 requirement Acute on chronic systolic HF, - cont lasix, cardiology following - Ef as low as ~10% - monitor daily wt, ins/os NICMP AICD in situ - likely from alcohol abuse - cont current meds Chronic atrial fibrillation - anticoagulated on Xarelto - rate controlled with coreg and digoxin - now changed digoxin to PO amio 400mg TID. Plan to reduce amio dosage after loading period. CKD, Monitor renal function - Cr at baseline HTN, Monitor BP, adjust meds as needed HLP, started on pravastatin Abnormal LFT, chronically elevated, ordered hepatitis panel - likely from alcohol abuse ETOH use, monitor for withdrawl tobacco use, counselled Noncompliance, counselled Moderate to severe PCM - consult dietary DVt Px, lovenox brief history: The pt is a 67-year-old male with a past medical history of significant for NICMP, chronic systolic HF, AICD in situ, chronic atrial fibrillation (was anticoagulated on Xarelto), CKD, HTN, HLP, ETOH use, tobacco use, noncompliance followed by Dr. Richards presented to cardiology office for labs and device check and voiced complaints of fatigue, progressively worsening SOB, BLE edema. He was also found to have AFib with RVR. He was referred to ED for further eval/ management. Subjective Date of service: 01/19/18 Principal diagnosis: HF Interval history: Pt seen and examined C/o SOB even in rest, improved b/l LE swelling No chest pain, difficulty to sleep at night Objective - Exam Narrative Exam: General appearance: Present: no acute distress, mild distress, disheveled - EENT Eyes: PERRL, EOM intact ENT: hearing intact Ears: bilateral: normal - Neck Neck: supple, normal ROM - Respiratory Respiratory effort: normal Respiratory: bilateral: rhonchi - Cardiovascular Heart Sounds: Present: S1 & S2. Absent: gallop, rub Extremities: pulses intact, normal color, Full ROM Extremity abnormal: edema - Gastrointestinal General gastrointestinal: Present: soft, non-tender, distended, normal bowel sounds - Integumentary Integumentary: clear, warm, dry - Musculoskeletal Musculoskeletal: generalized weakness - Neurologic Neurologic: moves all extremities - Psychiatric Psychiatric: memory intact, appropriate mood/affect, intact judgment & insight - Constitutional Vitals: Vital Signs - 12hr 01/19/18 01/19/18 01/19/18 06:12 08:05 09:17 Temperature 98.2 F 98.0 F Pulse Rate 48 L 37 L Pulse Rate [ Apical] Respiratory 18 18 Rate Blood Pressure 85/59 85/59 Blood Pressure 111/74 [Left] O2 Sat by Pulse 98 97 Oximetry 01/19/18 01/19/18 01/19/18 10:00 12:06 13:20 Temperature 98.7 F Pulse Rate 46 L 105 H Pulse Rate [ 105 H Apical] Respiratory 3 L 20 18 Rate Blood Pressure 90/60 85/66 Blood Pressure 90/60 [Left] O2 Sat by Pulse 100 97 Oximetry 01/19/18 16:00 Temperature 98.1 F Pulse Rate 38 L Pulse Rate [ Apical] Respiratory 18 Rate Blood Pressure 80/62 Blood Pressure [Left] O2 Sat by Pulse 97 Oximetry - Labs CBC & Chem 7: 01/18/18 15:13 01/18/18 15:13
[2018-01-20] MEDS: LASIX IV SCH ×2 (06:26→18:09)
[2018-01-20 10:32] LABS: BUN/Creatinine Ratio 45; Blood Urea Nitrogen 63 mg/dL (9-20); Calcium 9.6 mg/dL (8.4-10.2); Hemolysis Index 6
[2018-01-20] MEDS: CORDARONE PO SCH ×3 (11:18→22:37)
[2018-01-20] MEDS: ALDACTONE PO SCH (11:18)
[2018-01-20] MEDS: XARELTO PO SCH (11:19)
[2018-01-20] MEDS: VITAMIN D3 PO SCH (11:19)
[2018-01-20] MEDS: FOLVITE PO SCH (11:19)
[2018-01-20] MEDS: PRAVACHOL PO SCH (11:19)
[2018-01-20] MEDS: SODIUM CHLORIDE FLUSH SYRINGE 10 ML IV SCH ×2 (11:20→22:38)
--- NOTE | 2018-01-20 12:10 | Progress Note ---
Assessment and Plan Cont PO amio. Pt still has complaints of SOB and BLE edema. Will initiate milrinone and cont IV lasix as BPs permit. The patient has been seen in conjunction with Dr. Esposito who agrees with the assessment and plan of care. - Patient Problems (1) Acute on chronic combined systolic and diastolic congestive heart failure Current Visit: Yes Status: Acute (2) Non-ischemic cardiomyopathy Current Visit: Yes Status: Chronic (3) S/P implantation of automatic cardioverter/defibrillator (AICD) Current Visit: Yes Status: Chronic (4) Permanent atrial fibrillation Current Visit: Yes Status: Chronic (5) Elevated troponin Current Visit: Yes Status: Acute (6) CKD (chronic kidney disease) Current Visit: Yes Status: Chronic (7) Hypertension Current Visit: Yes Status: Chronic (8) Total bilirubin, elevated Current Visit: Yes Status: Acute (9) EtOH dependence Current Visit: Yes Status: Chronic Qualifiers: Complication of substance-induced condition: with unspecified complication Subjective Date of service: 01/20/18 Principal diagnosis: HF Interval history: pt sitting up at bedside, c/o SOB overnight. tele reviewed- pt in AFib with HR 100s - 115s. Objective Last Vital Signs Temp 98.5 F 01/20/18 12:01 Pulse 48 L 01/20/18 12:01 Resp 18 01/20/18 12:01 BP 90/69 01/20/18 12:01 Pulse Ox 97 01/20/18 12:01 - Physical Examination HEENT: Positive: PERRL, Normocephaly, Mucus Membranes Moist Neck: Positive: neck supple, trachea midline Cardiac: Positive: irregularly irregular, S1/S2, Tachycardia Lungs: Positive: Decreased Breath Sounds Neuro: Positive: Grossly Intact Abdomen: Positive: Soft. Negative: Tender Skin: Negative: Rash Musculoskeletal: No Pain Extremities: Present: edema (BLE ankles) - Labs and Meds Comprehensive Metabolic Panel 01/20/18 Range/Units 09:44 Sodium 135 L (137-145) mmol/L Potassium 4.1 (3.6-5.0) mmol/L Chloride 95.9 L (98-107) mmol/L Carbon Dioxide 24 (22-30) mmol/L BUN 63 H (9-20) mg/dL Creatinine 1.4 (0.8-1.5) mg/dL Glucose 126 H (75-100) mg/dL Calcium 9.6 (8.4-10.2) mg/dL - Imaging and Cardiology EKG: report reviewed, image reviewed Echo: report reviewed (11/2017 showed EF 5-10%, LV severely dilated, mild LVH, restrictive diastolic filling, RV mod dilated, RV systolic function mildly reduced, pacemaker wire in RV, RA severely dilated, severe MR, mod to severe TR , pulm HTN with RVSP 67mmHg, trivial pericardial effusion. ) Cardiac cath: report reviewed (10/2015 showed normal coronaries, large epicardial vessels, severe LV dysfunction. ) - Telemetry EKG Rhythm: Atrial Fibrillation
[2018-01-20] MEDS: MILRINONE-D5W 20 MG/100 ML 20 MG/100 ML BAG IV SCH (14:53)
--- NOTE | 2018-01-20 16:18 | Progress Note ---
Assessment and Plan Assessment and plan: Acute hypoxic respiratory failure - due to pulmonary edema from CHF exacerbation, improved - cont lasix and supplemental O2 via NC - need eval for home O2 requirement Acute on chronic systolic HF with Ef ~10%, improved - cont lasix and aldactone - not on ACEI and BB due to labile BP - monitor daily wt, ins/os - cardiology following NICMP AICD in situ - likely from alcohol abuse - cont current meds Chronic atrial fibrillation - anticoagulated on Xarelto - rate uncontrolled on amiodarone - cardiology following CRF, stable - Cr at baseline HLP, cont pravastatin Abnormal LFT, chronically elevated - likely from alcohol abuse - hepatitis B and C panel neg, A pending H/O ETOH abuse, stable -monitor for withdrawl tobacco use, counselled Noncompliance, counselled Moderate to severe PCM - ratings analyst following Suspected SUSAN -For outpatient follow-up Leukopenia -We will monitor DVt Px, lovenox Disp: Discharge pt when cleared by cardiology History Interval history: Patient has no new complaints. He reported that he was unable to tolerate his CPAP last night due to claustrophobia Hospitalist Physical - Constitutional Vitals: Temp Pulse Resp BP Pulse Ox 98.5 F 48 L 18 90/69 97 01/20/18 12:01 01/20/18 12:01 01/20/18 12:01 01/20/18 12:01 01/20/18 12:01 General appearance: Present: no acute distress - EENT Eyes: Present: PERRL, EOM intact ENT: hearing intact, clear oral mucosa - Neck Neck: Present: supple - Respiratory Respiratory effort: normal Respiratory: bilateral: CTA - Cardiovascular Rhythm: irregularly irregular Heart Sounds: Present: S1 & S2 - Extremities Extremities: No edema - Abdominal General gastrointestinal: soft, non-tender, normal bowel sounds - Neurologic Neurologic: CNII-XII intact Results - Labs CBC & Chem 7: 01/18/18 15:13 01/20/18 09:44 Labs: Laboratory Last Values WBC 3.2 K/mm3 (4.5-11.0) L 01/18/18 15:13 RBC 3.68 M/mm3 (3.65-5.03) 01/18/18 15:13 Hgb 13.3 gm/dl (11.8-15.2) 01/18/18 15:13 Hct 39.9 % (35.5-45.6) 01/18/18 15:13 MCV 108 fl (84-94) H 01/18/18 15:13 MCH 36 pg (28-32) H 01/18/18 15:13 MCHC 33 % (32-34) 01/18/18 15:13 RDW 14.3 % (13.2-15.2) 01/18/18 15:13 Plt Count 102 K/mm3 (140-440) L 01/18/18 15:13 Lymph % (Auto) 18.4 % (13.4-35.0) 01/16/18 13:48 [place] % (Auto) 10.6 % (0.0-7.3) H 01/16/18 13:48 Eos % (Auto) 1.7 % (0.0-4.3) 01/16/18 13:48 Baso % (Auto) 0.8 % (0.0-1.8) 01/16/18 13:48 Lymph # 0.7 K/mm3 (1.2-5.4) L 01/16/18 13:48 [place] # 0.4 K/mm3 (0.0-0.8) 01/16/18 13:48 Eos # 0.1 K/mm3 (0.0-0.4) 01/16/18 13:48 Baso # 0.0 K/mm3 (0.0-0.1) 01/16/18 13:48 Seg Neutrophils % 68.5 % (40.0-70.0) 01/16/18 13:48 Seg Neutrophils # 2.8 K/mm3 (1.8-7.7) 01/16/18 13:48 PT 45.5 Sec. (12.2-14.9) H 01/16/18 13:48 INR 4.82 (0.87-1.13) H 01/16/18 13:48 APTT 47.9 Sec. (24.2-36.6) H 01/16/18 13:48 D-Dimer 633.35 ng/mlDDU (0-234) H 01/16/18 17:51 Sodium 135 mmol/L (137-145) L 01/20/18 09:44 Potassium 4.1 mmol/L (3.6-5.0) 01/20/18 09:44 Chloride 95.9 mmol/L (98-107) L 01/20/18 09:44 Carbon Dioxide 24 mmol/L (22-30) 01/20/18 09:44 Anion Gap 19 mmol/L 01/20/18 09:44 BUN 63 mg/dL (9-20) H 01/20/18 09:44 Creatinine 1.4 mg/dL (0.8-1.5) 01/20/18 09:44 Estimated GFR > 60 ml/min 01/20/18 09:44 BUN/Creatinine Ratio 45 % 01/20/18 09:44 Glucose 126 mg/dL (75-100) H 01/20/18 09:44 Calcium 9.6 mg/dL (8.4-10.2) 01/20/18 09:44 Phosphorus 4.50 mg/dL (2.5-4.5) 01/17/18 05:02 Magnesium 1.50 mg/dL (1.7-2.3) L 01/17/18 05:02 Total Bilirubin 4.10 mg/dL (0.1-1.2) H 01/18/18 15:13 Direct Bilirubin 2.9 mg/dL (0-0.2) H 01/17/18 05:02 Indirect Bilirubin 1.5 mg/dL 01/17/18 05:02 AST 18 units/L (5-40) 01/18/18 15:13 ALT 12 units/L (7-56) 01/18/18 15:13 Alkaline Phosphatase 62 units/L (35-129) 01/18/18 15:13 Total Creatine Kinase 42 units/L (55-170) L 01/16/18 13:48 CK-MB (CK-2) 1.5 ng/mL (0.0-4.0) 01/16/18 13:48 CK-MB (CK-2) Rel Index 3.5 (0-4) 01/16/18 13:48 Troponin T 0.058 ng/mL (0.00-0.029) H 01/16/18 13:48 NT-Pro-B Natriuret Pep 22650 pg/mL (0-900) H 01/16/18 17:51 Total Protein 6.8 g/dL (6.3-8.2) 01/18/18 15:13 Albumin 3.4 g/dL (3.9-5) L 01/18/18 15:13 Albumin/Globulin Ratio 1.0 % 01/18/18 15:13 Triglycerides 79 mg/dL (2-149) 01/16/18 13:48 Cholesterol 84 mg/dL (50-199) 01/16/18 13:48 LDL Cholesterol Direct 49 mg/dL (50-130) L 01/16/18 13:48 HDL Cholesterol 30 mg/dL (40-59) L 01/16/18 13:48 Cholesterol/HDL Ratio 2.80 % 01/16/18 13:48 Urine Color Yellow (Yellow) 01/16/18 14:15 Urine Turbidity Clear (Clear) 01/16/18 14:15 Urine pH 6.0 (5.0-7.0) 01/16/18 14:15 Ur Specific [place] 1.010 (1.003-1.030) 01/16/18 14:15 Urine Protein <15 mg/dl mg/dL (Negative) 01/16/18 14:15 Urine Glucose (UA) Neg mg/dL (Negative) 01/16/18 14:15 Urine Ketones Neg mg/dL (Negative) 01/16/18 14:15 Urine Blood Neg (Negative) 01/16/18 14:15 Urine Nitrite Neg (Negative) 01/16/18 14:15 Urine Bilirubin Neg (Negative) 01/16/18 14:15 Urine Urobilinogen 4.0 mg/dL (<2.0) 01/16/18 14:15 Ur Leukocyte Esterase Neg (Negative) 01/16/18 14:15 Urine WBC (Auto) 2.0 /HPF (0.0-6.0) 01/16/18 14:15 Urine RBC (Auto) 4.0 /HPF (0.0-6.0) 01/16/18 14:15 U Epithel Cells (Auto) < 1.0 /HPF (0-13.0) 01/16/18 14:15 Hyaline Casts 3 /LPF 01/16/18 14:15 Digoxin 1.6 ng/mL (0.9-2.0) 01/16/18 17:51 Hep Bs Antigen Non-reactive (Negative) 01/18/18 15:13 Hep B Core IgM Ab Non-reactive (NonReactive) 01/18/18 15:13 Hepatitis C Antibody Non-reactive (NonReactive) 01/18/18 15:13
[2018-01-21] MEDS: MILRINONE-D5W 20 MG/100 ML 20 MG/100 ML BAG IV SCH (00:38)
[2018-01-21] MEDS: LASIX IV SCH ×2 (05:56→18:00)
[2018-01-21 06:26] LABS: Basophils % (Auto) 0.8 % (0.0-1.8); Eosinophils # (Auto) 0.2 K/mm3 (0.0-0.4); Eosinophils % (Auto) 4.1 % (0.0-4.3); Hematocrit 39.1 % (35.5-45.6); Hemoglobin 13.1 gm/dl (11.8-15.2); Lymphocytes # (Auto) 0.9 K/mm3 (1.2-5.4); Lymphocytes % (Auto) 20.2 % (13.4-35.0); Mean Corpuscular HGB Conc 34 % (32-34); Mean Corpuscular Hemoglobin 36 pg (28-32); Mean Corpuscular Volume 107 fl (84-94); Monocytes # (Auto) 0.4 K/mm3 (0.0-0.8); Monocytes % (Auto) 9.6 % (0.0-7.3); Platelet Count 119 K/mm3 (140-440); Red Blood Count 3.65 M/mm3 (3.65-5.03); Red Cell Distribution Width 13.8 % (13.2-15.2)
[2018-01-21 06:43] LABS: BUN/Creatinine Ratio 40; Blood Urea Nitrogen 56 mg/dL (9-20); Calcium 9.2 mg/dL (8.4-10.2); Hemolysis Index 10
[2018-01-21] MEDS: PRAVACHOL PO SCH (09:24)
[2018-01-21] MEDS: ALDACTONE PO SCH (09:24)
[2018-01-21] MEDS: XARELTO PO SCH (09:24)
[2018-01-21] MEDS: SODIUM CHLORIDE FLUSH SYRINGE 10 ML IV SCH ×2 (09:25→21:30)
[2018-01-21] MEDS: CORDARONE PO SCH ×3 (09:25→21:29)
[2018-01-21] MEDS: FOLVITE PO SCH (09:25)
[2018-01-21] MEDS: VITAMIN D3 PO SCH (09:28)
--- NOTE | 2018-01-21 09:28 | Progress Note ---
Assessment and Plan Assessment and plan: Chronic atrial fibrillation - anticoagulated on Xarelto - rate uncontrolled on amiodarone - cardiology following Acute hypoxic respiratory failure - due to pulmonary edema - cont lasix and supplemental O2 via NC. Acute on chronic systolic HF with Ef ~10%, improved - cont lasix and aldactone - not on ACEI and BB due to labile BP - monitor daily wt, ins/os - cardiology following NICMP AICD in situ - likely from alcohol abuse - cont current meds CRF, stable - Cr at baseline HLP, cont pravastatin Abnormal LFT, chronically elevated - likely from alcohol abuse - hepatitis B and C panel neg, A pending H/O ETOH abuse, stable -monitor for withdrawl Moderate to severe PCM - mechanical maintenance instructor following Suspected SUSAN -For outpatient follow-up Leukopenia -We will monitor Noncompliance, counselled Disp: Discharge pt when cleared by cardiology Further pt mgt per hospital course History Interval history: On Milrinone drip No new complaints Hospitalist Physical - Constitutional Vitals: Temp Pulse Resp BP Pulse Ox 98.3 F 94 H 20 114/96 94 01/21/18 08:43 01/21/18 08:43 01/21/18 08:43 01/21/18 08:43 01/21/18 08:43 General appearance: Present: no acute distress, other (ill appearing) - EENT Eyes: Present: PERRL, EOM intact, scleral icterus ENT: hearing intact, clear oral mucosa - Neck Neck: Present: supple, normal ROM, masses or JVD - Respiratory Respiratory: bilateral: diminished, negative: rales, rhonchi, wheezing - Cardiovascular Rhythm: irregularly irregular Heart Sounds: Present: S1 & S2 - Extremities Extremities: pulses intact, pulses symmetrical, normal temperature, normal color Extremity abnormal: edema - Abdominal General gastrointestinal: soft, non-tender, non-distended, normal bowel sounds - Integumentary Integumentary: Present: clear, warm, dry - Psychiatric Psychiatric: appropriate mood/affect, intact judgment & insight, memory intact, cooperative - Neurologic Neurologic: CNII-XII intact, moves all extremities - Allied Health Allied health notes reviewed: nursing, social work, case management Results - Labs CBC & Chem 7: 01/21/18 05:39 01/21/18 05:39 Labs: Laboratory Last Values WBC 4.3 K/mm3 (4.5-11.0) L 01/21/18 05:39 RBC 3.65 M/mm3 (3.65-5.03) 01/21/18 05:39 Hgb 13.1 gm/dl (11.8-15.2) 01/21/18 05:39 Hct 39.1 % (35.5-45.6) 01/21/18 05:39 MCV 107 fl (84-94) H 01/21/18 05:39 MCH 36 pg (28-32) H 01/21/18 05:39 MCHC 34 % (32-34) 01/21/18 05:39 RDW 13.8 % (13.2-15.2) 01/21/18 05:39 Plt Count 119 K/mm3 (140-440) L 01/21/18 05:39 Lymph % (Auto) 20.2 % (13.4-35.0) 01/21/18 05:39 [place] % (Auto) 9.6 % (0.0-7.3) H 01/21/18 05:39 Eos % (Auto) 4.1 % (0.0-4.3) 01/21/18 05:39 Baso % (Auto) 0.8 % (0.0-1.8) 01/21/18 05:39 Lymph # 0.9 K/mm3 (1.2-5.4) L 01/21/18 05:39 [place] # 0.4 K/mm3 (0.0-0.8) 01/21/18 05:39 Eos # 0.2 K/mm3 (0.0-0.4) 01/21/18 05:39 Baso # 0.0 K/mm3 (0.0-0.1) 01/21/18 05:39 Seg Neutrophils % 65.3 % (40.0-70.0) 01/21/18 05:39 Seg Neutrophils # 2.8 K/mm3 (1.8-7.7) 01/21/18 05:39 PT 45.5 Sec. (12.2-14.9) H 01/16/18 13:48 INR 4.82 (0.87-1.13) H 01/16/18 13:48 APTT 47.9 Sec. (24.2-36.6) H 01/16/18 13:48 D-Dimer 633.35 ng/mlDDU (0-234) H 01/16/18 17:51 Sodium 137 mmol/L (137-145) 01/21/18 05:39 Potassium 3.8 mmol/L (3.6-5.0) 01/21/18 05:39 Chloride 96.8 mmol/L (98-107) L 01/21/18 05:39 Carbon Dioxide 24 mmol/L (22-30) 01/21/18 05:39 Anion Gap 20 mmol/L 01/21/18 05:39 BUN 56 mg/dL (9-20) H 01/21/18 05:39 Creatinine 1.4 mg/dL (0.8-1.5) 01/21/18 05:39 Estimated GFR > 60 ml/min 01/21/18 05:39 BUN/Creatinine Ratio 40 % 01/21/18 05:39 Glucose 90 mg/dL (75-100) 01/21/18 05:39 Calcium 9.2 mg/dL (8.4-10.2) 01/21/18 05:39 Phosphorus 4.50 mg/dL (2.5-4.5) 01/17/18 05:02 Magnesium 1.70 mg/dL (1.7-2.3) 01/21/18 05:39 Total Bilirubin 4.10 mg/dL (0.1-1.2) H 01/18/18 15:13 Direct Bilirubin 2.9 mg/dL (0-0.2) H 01/17/18 05:02 Indirect Bilirubin 1.5 mg/dL 01/17/18 05:02 AST 18 units/L (5-40) 01/18/18 15:13 ALT 12 units/L (7-56) 01/18/18 15:13 Alkaline Phosphatase 62 units/L (35-129) 01/18/18 15:13 Total Creatine Kinase 42 units/L (55-170) L 01/16/18 13:48 CK-MB (CK-2) 1.5 ng/mL (0.0-4.0) 01/16/18 13:48 CK-MB (CK-2) Rel Index 3.5 (0-4) 01/16/18 13:48 Troponin T 0.058 ng/mL (0.00-0.029) H 01/16/18 13:48 NT-Pro-B Natriuret Pep 94366 pg/mL (0-900) H 01/16/18 17:51 Total Protein 6.8 g/dL (6.3-8.2) 01/18/18 15:13 Albumin 3.4 g/dL (3.9-5) L 01/18/18 15:13 Albumin/Globulin Ratio 1.0 % 01/18/18 15:13 Triglycerides 79 mg/dL (2-149) 01/16/18 13:48 Cholesterol 84 mg/dL (50-199) 01/16/18 13:48 LDL Cholesterol Direct 49 mg/dL (50-130) L 01/16/18 13:48 HDL Cholesterol 30 mg/dL (40-59) L 01/16/18 13:48 Cholesterol/HDL Ratio 2.80 % 01/16/18 13:48 Urine Color Yellow (Yellow) 01/16/18 14:15 Urine Turbidity Clear (Clear) 01/16/18 14:15 Urine pH 6.0 (5.0-7.0) 01/16/18 14:15 Ur Specific [place] 1.010 (1.003-1.030) 01/16/18 14:15 Urine Protein <15 mg/dl mg/dL (Negative) 01/16/18 14:15 Urine Glucose (UA) Neg mg/dL (Negative) 01/16/18 14:15 Urine Ketones Neg mg/dL (Negative) 01/16/18 14:15 Urine Blood Neg (Negative) 01/16/18 14:15 Urine Nitrite Neg (Negative) 01/16/18 14:15 Urine Bilirubin Neg (Negative) 01/16/18 14:15 Urine Urobilinogen 4.0 mg/dL (<2.0) 01/16/18 14:15 Ur Leukocyte Esterase Neg (Negative) 01/16/18 14:15 Urine WBC (Auto) 2.0 /HPF (0.0-6.0) 01/16/18 14:15 Urine RBC (Auto) 4.0 /HPF (0.0-6.0) 01/16/18 14:15 U Epithel Cells (Auto) < 1.0 /HPF (0-13.0) 01/16/18 14:15 Hyaline Casts 3 /LPF 01/16/18 14:15 Digoxin 1.6 ng/mL (0.9-2.0) 01/16/18 17:51 Hep Bs Antigen Non-reactive (Negative) 01/18/18 15:13 Hep B Core IgM Ab Non-reactive (NonReactive) 01/18/18 15:13 Hepatitis C Antibody Non-reactive (NonReactive) 01/18/18 15:13 - Imaging and Cardiology EKG: report reviewed, image reviewed Chest x-ray: report reviewed, image reviewed Imaging and Cardiology: 2D Echo
[2018-01-21 09:45] LABS: Hepatitis A Antibody IgM NonReactive (NonReactive)
--- NOTE | 2018-01-21 10:55 | Progress Note ---
Assessment and Plan Pt appears to be clinically improving. Cont present cardiac management. Consider discontinuation of milrinone gtt as early as tomorrow. Consider reintroduction of home Coreg and Entresto if/when BPs permit. The patient has been seen in conjunction with Dr. Esopsito who agrees with the assessment and plan of care. - Patient Problems (1) Acute on chronic combined systolic and diastolic congestive heart failure Current Visit: Yes Status: Acute (2) Non-ischemic cardiomyopathy Current Visit: Yes Status: Chronic (3) S/P implantation of automatic cardioverter/defibrillator (AICD) Current Visit: Yes Status: Chronic (4) Permanent atrial fibrillation Current Visit: Yes Status: Chronic (5) Elevated troponin Current Visit: Yes Status: Acute (6) CKD (chronic kidney disease) Current Visit: Yes Status: Chronic (7) Hypertension Current Visit: Yes Status: Chronic (8) Total bilirubin, elevated Current Visit: Yes Status: Acute (9) EtOH dependence Current Visit: Yes Status: Chronic Qualifiers: Complication of substance-induced condition: with unspecified complication Subjective Date of service: 01/21/18 Principal diagnosis: HF Interval history: pt resting in bed, states he feels "great" and got the best night of sleep that he has gotten in 4 months. tele reviewed- pt in AFib with HR 100s - 115s. milrinone gtt infusing. Objective Last Vital Signs Temp 98.3 F 01/21/18 08:43 Pulse 94 H 01/21/18 08:43 Resp 20 01/21/18 08:43 BP 114/96 01/21/18 08:43 Pulse Ox 94 01/21/18 10:00 - Physical Examination HEENT: Positive: PERRL, Normocephaly, Mucus Membranes Moist Neck: Positive: neck supple, trachea midline Cardiac: Positive: irregularly irregular, S1/S2 Lungs: Positive: clear to auscultation Neuro: Positive: Grossly Intact Abdomen: Positive: Soft. Negative: Tender Skin: Negative: Rash Musculoskeletal: No Pain Extremities: Present: edema (BLE ankles) - Labs and Meds CBC 01/21/18 Range/Units 05:39 WBC 4.3 L (4.5-11.0) K/mm3 RBC 3.65 (3.65-5.03) M/mm3 Hgb 13.1 (11.8-15.2) gm/dl Hct 39.1 (35.5-45.6) % Plt Count 119 L (140-440) K/mm3 Lymph # 0.9 L (1.2-5.4) K/mm3 [place] # 0.4 (0.0-0.8) K/mm3 Eos # 0.2 (0.0-0.4) K/mm3 Baso # 0.0 (0.0-0.1) K/mm3 Comprehensive Metabolic Panel 01/21/18 Range/Units 05:39 Sodium 137 (137-145) mmol/L Potassium 3.8 (3.6-5.0) mmol/L Chloride 96.8 L (98-107) mmol/L Carbon Dioxide 24 (22-30) mmol/L BUN 56 H (9-20) mg/dL Creatinine 1.4 (0.8-1.5) mg/dL Glucose 90 (75-100) mg/dL Calcium 9.2 (8.4-10.2) mg/dL - Imaging and Cardiology EKG: report reviewed, image reviewed Echo: report reviewed (11/2017 showed EF 5-10%, LV severely dilated, mild LVH, restrictive diastolic filling, RV mod dilated, RV systolic function mildly reduced, pacemaker wire in RV, RA severely dilated, severe MR, mod to severe TR , pulm HTN with RVSP 67mmHg, trivial pericardial effusion. ) Cardiac cath: report reviewed (10/2015 showed normal coronaries, large epicardial vessels, severe LV dysfunction. ) - Telemetry EKG Rhythm: Atrial Fibrillation
[2018-01-21] MEDS ORDERED: MAGNESIUM SULFATE 1 GM in NACL 0.9% 50 ML IV ONE (12:00)
[2018-01-22 01:48] LABS: Hematocrit 40.6 % (35.5-45.6); Hemoglobin 13.6 gm/dl (11.8-15.2); Mean Corpuscular HGB Conc 34 % (32-34); Mean Corpuscular Hemoglobin 36 pg (28-32); Mean Corpuscular Volume 107 fl (84-94); Platelet Count 129 K/mm3 (140-440); Red Blood Count 3.78 M/mm3 (3.65-5.03); Red Cell Distribution Width 13.7 % (13.2-15.2)
[2018-01-22 02:13] LABS: Alanine Aminotransferase 12 units/L (7-56); Albumin 3.2 g/dL (3.9-5); BUN/Creatinine Ratio 35; Blood Urea Nitrogen 46 mg/dL (9-20); Calcium 9.3 mg/dL (8.4-10.2); Hemolysis Index 5
[2018-01-22] MEDS: MILRINONE-D5W 20 MG/100 ML 20 MG/100 ML BAG IV SCH (02:23)
[2018-01-22] MEDS: LASIX IV SCH ×2 (06:17→17:30)
--- NOTE | 2018-01-22 08:52 | Progress Note ---
Assessment and Plan Assessment and plan: Suspect Congestive Hepatopathy from severe cardiomyopathy Monitor LFTs closely check PT/INR. Chronic atrial fibrillation - anticoagulated on Xarelto - rate uncontrolled on amiodarone - cardiology following Acute hypoxic respiratory failure - due to pulmonary edema - cont lasix and supplemental O2 via NC. Acute on chronic systolic HF with Ef ~10%, improved - cont lasix and aldactone NICMP AICD in situ - likely from alcohol abuse - cont current meds H/O ETOH abuse, stable -monitor for withdrawl Moderate to severe PCM - business solutions architect following Noncompliance, counselled Disp: Discharge pt when cleared by cardiology Further pt mgt per hospital course 25 Mins Total Time Spent with Patient (Minutes): 25 mins History Interval history: On Milrinone drip Poor sleep last night Sleepy during the encounter wants double portion of food for Breakfast and Lunch Hospitalist Physical - Constitutional Vitals: Temp Pulse Resp BP Pulse Ox 98.2 F 51 L 20 96/76 98 01/22/18 08:09 01/22/18 08:09 01/22/18 08:09 01/22/18 08:09 01/22/18 08:09 General appearance: Present: no acute distress, other (ill appearing) - EENT Eyes: Present: PERRL, EOM intact, scleral icterus ENT: hearing intact, clear oral mucosa - Neck Neck: Present: supple, normal ROM, masses or JVD - Respiratory Respiratory: bilateral: diminished, negative: rales, rhonchi, wheezing - Cardiovascular Rhythm: irregularly irregular Heart Sounds: Present: S1 & S2 - Extremities Extremities: pulses symmetrical, normal temperature, normal color Extremity abnormal: edema - Abdominal General gastrointestinal: soft, non-tender, non-distended, normal bowel sounds - Integumentary Integumentary: Present: clear, warm, dry - Psychiatric Psychiatric: appropriate mood/affect, intact judgment & insight, memory intact, cooperative - Neurologic Neurologic: CNII-XII intact, moves all extremities - Allied Health Allied health notes reviewed: nursing, social work, case management Results - Labs CBC & Chem 7: 01/22/18 01:10 01/22/18 01:10 Labs: Laboratory Last Values WBC 3.5 K/mm3 (4.5-11.0) L 01/22/18 01:10 RBC 3.78 M/mm3 (3.65-5.03) 01/22/18 01:10 Hgb 13.6 gm/dl (11.8-15.2) 01/22/18 01:10 Hct 40.6 % (35.5-45.6) 01/22/18 01:10 MCV 107 fl (84-94) H 01/22/18 01:10 MCH 36 pg (28-32) H 01/22/18 01:10 MCHC 34 % (32-34) 01/22/18 01:10 RDW 13.7 % (13.2-15.2) 01/22/18 01:10 Plt Count 129 K/mm3 (140-440) L 01/22/18 01:10 Lymph % (Auto) 20.2 % (13.4-35.0) 01/21/18 05:39 [place] % (Auto) 9.6 % (0.0-7.3) H 01/21/18 05:39 Eos % (Auto) 4.1 % (0.0-4.3) 01/21/18 05:39 Baso % (Auto) 0.8 % (0.0-1.8) 01/21/18 05:39 Lymph # 0.9 K/mm3 (1.2-5.4) L 01/21/18 05:39 [place] # 0.4 K/mm3 (0.0-0.8) 01/21/18 05:39 Eos # 0.2 K/mm3 (0.0-0.4) 01/21/18 05:39 Baso # 0.0 K/mm3 (0.0-0.1) 01/21/18 05:39 Seg Neutrophils % 65.3 % (40.0-70.0) 01/21/18 05:39 Seg Neutrophils # 2.8 K/mm3 (1.8-7.7) 01/21/18 05:39 PT 45.5 Sec. (12.2-14.9) H 01/16/18 13:48 INR 4.82 (0.87-1.13) H 01/16/18 13:48 APTT 47.9 Sec. (24.2-36.6) H 01/16/18 13:48 D-Dimer 633.35 ng/mlDDU (0-234) H 01/16/18 17:51 Sodium 136 mmol/L (137-145) L 01/22/18 01:10 Potassium 4.8 mmol/L (3.6-5.0) D 01/22/18 01:10 Chloride 98.1 mmol/L (98-107) 01/22/18 01:10 Carbon Dioxide 26 mmol/L (22-30) 01/22/18 01:10 Anion Gap 17 mmol/L 01/22/18 01:10 BUN 46 mg/dL (9-20) H 01/22/18 01:10 Creatinine 1.3 mg/dL (0.8-1.5) 01/22/18 01:10 Estimated GFR > 60 ml/min 01/22/18 01:10 BUN/Creatinine Ratio 35 % 01/22/18 01:10 Glucose 91 mg/dL (75-100) 01/22/18 01:10 Calcium 9.3 mg/dL (8.4-10.2) 01/22/18 01:10 Phosphorus 4.50 mg/dL (2.5-4.5) 01/17/18 05:02 Magnesium 1.70 mg/dL (1.7-2.3) 01/21/18 05:39 Total Bilirubin 3.60 mg/dL (0.1-1.2) H 01/22/18 01:10 Direct Bilirubin 2.9 mg/dL (0-0.2) H 01/17/18 05:02 Indirect Bilirubin 1.5 mg/dL 01/17/18 05:02 AST 20 units/L (5-40) 01/22/18 01:10 ALT 12 units/L (7-56) 01/22/18 01:10 Alkaline Phosphatase 87 units/L (35-129) 01/22/18 01:10 Total Creatine Kinase 42 units/L (55-170) L 01/16/18 13:48 CK-MB (CK-2) 1.5 ng/mL (0.0-4.0) 01/16/18 13:48 CK-MB (CK-2) Rel Index 3.5 (0-4) 01/16/18 13:48 Troponin T 0.058 ng/mL (0.00-0.029) H 01/16/18 13:48 NT-Pro-B Natriuret Pep 59112 pg/mL (0-900) H 01/16/18 17:51 Total Protein 6.8 g/dL (6.3-8.2) 01/22/18 01:10 Albumin 3.2 g/dL (3.9-5) L 01/22/18 01:10 Albumin/Globulin Ratio 0.9 % 01/22/18 01:10 Triglycerides 79 mg/dL (2-149) 01/16/18 13:48 Cholesterol 84 mg/dL (50-199) 01/16/18 13:48 LDL Cholesterol Direct 49 mg/dL (50-130) L 01/16/18 13:48 HDL Cholesterol 30 mg/dL (40-59) L 01/16/18 13:48 Cholesterol/HDL Ratio 2.80 % 01/16/18 13:48 Urine Color Yellow (Yellow) 01/16/18 14:15 Urine Turbidity Clear (Clear) 01/16/18 14:15 Urine pH 6.0 (5.0-7.0) 01/16/18 14:15 Ur Specific [place] 1.010 (1.003-1.030) 01/16/18 14:15 Urine Protein <15 mg/dl mg/dL (Negative) 01/16/18 14:15 Urine Glucose (UA) Neg mg/dL (Negative) 01/16/18 14:15 Urine Ketones Neg mg/dL (Negative) 01/16/18 14:15 Urine Blood Neg (Negative) 01/16/18 14:15 Urine Nitrite Neg (Negative) 01/16/18 14:15 Urine Bilirubin Neg (Negative) 01/16/18 14:15 Urine Urobilinogen 4.0 mg/dL (<2.0) 01/16/18 14:15 Ur Leukocyte Esterase Neg (Negative) 01/16/18 14:15 Urine WBC (Auto) 2.0 /HPF (0.0-6.0) 01/16/18 14:15 Urine RBC (Auto) 4.0 /HPF (0.0-6.0) 01/16/18 14:15 U Epithel Cells (Auto) < 1.0 /HPF (0-13.0) 01/16/18 14:15 Hyaline Casts 3 /LPF 01/16/18 14:15 Digoxin 1.6 ng/mL (0.9-2.0) 01/16/18 17:51 Hepatitis A IgM Ab Nonreactive (NonReactive) 01/18/18 15:13 Hep Bs Antigen Non-reactive (Negative) 01/18/18 15:13 Hep B Core IgM Ab Non-reactive (NonReactive) 01/18/18 15:13 Hepatitis C Antibody Non-reactive (NonReactive) 01/18/18 15:13 - Imaging and Cardiology Chest x-ray: report reviewed, image reviewed Imaging and Cardiology: 2D Echo
[2018-01-22] MEDS: CORDARONE PO SCH ×3 (09:40→21:03)
[2018-01-22] MEDS: VITAMIN D3 PO SCH (09:40)
[2018-01-22] MEDS: ALDACTONE PO SCH (09:40)
[2018-01-22] MEDS: PRAVACHOL PO SCH (09:40)
[2018-01-22] MEDS: FOLVITE PO SCH (09:40)
[2018-01-22] MEDS: XARELTO PO SCH (09:40)
[2018-01-22] MEDS: SODIUM CHLORIDE FLUSH SYRINGE 10 ML IV SCH ×2 (09:42→21:04)
--- NOTE | 2018-01-22 11:34 | Progress Note ---
Assessment and Plan D/c milrinone gtt. Cont all other present cardiac management. Consider reintroduction of home Coreg and/or Entresto if/when BPs permit. The patient has been seen in conjunction with Dr. Esposito who agrees with the assessment and plan of care. - Patient Problems (1) Acute on chronic combined systolic and diastolic congestive heart failure Current Visit: Yes Status: Acute (2) Non-ischemic cardiomyopathy Current Visit: Yes Status: Chronic (3) S/P implantation of automatic cardioverter/defibrillator (AICD) Current Visit: Yes Status: Chronic (4) Permanent atrial fibrillation Current Visit: Yes Status: Chronic (5) Elevated troponin Current Visit: Yes Status: Acute (6) CKD (chronic kidney disease) Current Visit: Yes Status: Chronic (7) Hypertension Current Visit: Yes Status: Chronic (8) Total bilirubin, elevated Current Visit: Yes Status: Acute (9) EtOH dependence Current Visit: Yes Status: Chronic Qualifiers: Complication of substance-induced condition: with unspecified complication Subjective Date of service: 01/22/18 Principal diagnosis: HF Interval history: pt resting in bed, states he was restless overnight due to IV pump alarming. tele reviewed- pt in AFib with HR 100s - 115s. Objective Last Vital Signs Temp 98.2 F 01/22/18 08:09 Pulse 51 L 01/22/18 08:09 Resp 20 01/22/18 08:09 BP 96/76 01/22/18 08:09 Pulse Ox 96 01/22/18 10:00 - Physical Examination General: No Apparent Distress HEENT: Positive: PERRL, Normocephaly, Mucus Membranes Moist Neck: Positive: neck supple, trachea midline Cardiac: Positive: irregularly irregular, S1/S2 Lungs: Positive: clear to auscultation Neuro: Positive: Grossly Intact Abdomen: Positive: Soft. Negative: Tender Skin: Negative: Rash Musculoskeletal: No Pain Extremities: Present: edema (BLE ankles) - Labs and Meds Cardiac Enzymes 01/22/18 Range/Units 01:10 AST 20 (5-40) units/L CBC 01/22/18 Range/Units 01:10 WBC 3.5 L (4.5-11.0) K/mm3 RBC 3.78 (3.65-5.03) M/mm3 Hgb 13.6 (11.8-15.2) gm/dl Hct 40.6 (35.5-45.6) % Plt Count 129 L (140-440) K/mm3 Comprehensive Metabolic Panel 01/22/18 Range/Units 01:10 Sodium 136 L (137-145) mmol/L Potassium 4.8 D (3.6-5.0) mmol/L Chloride 98.1 (98-107) mmol/L Carbon Dioxide 26 (22-30) mmol/L BUN 46 H (9-20) mg/dL Creatinine 1.3 (0.8-1.5) mg/dL Glucose 91 (75-100) mg/dL Calcium 9.3 (8.4-10.2) mg/dL AST 20 (5-40) units/L ALT 12 (7-56) units/L Alkaline Phosphatase 87 (35-129) units/L Total Protein 6.8 (6.3-8.2) g/dL Albumin 3.2 L (3.9-5) g/dL - Imaging and Cardiology EKG: report reviewed, image reviewed Echo: report reviewed (11/2017 showed EF 5-10%, LV severely dilated, mild LVH, restrictive diastolic filling, RV mod dilated, RV systolic function mildly reduced, pacemaker wire in RV, RA severely dilated, severe MR, mod to severe TR , pulm HTN with RVSP 67mmHg, trivial pericardial effusion. ) Cardiac cath: report reviewed (10/2015 showed normal coronaries, large epicardial vessels, severe LV dysfunction. )
[2018-01-23] MEDS: ALUM-MAG HYDROX-SIMETH 200-200-20MG/5ML PO PRN (00:56)
[2018-01-23 01:37] LABS: Eosinophils # (Auto) 0.2 K/mm3 (0.0-0.4); Eosinophils % (Auto) 4.9 % (0.0-4.3); Hematocrit 42.5 % (35.5-45.6); Hemoglobin 14.4 gm/dl (11.8-15.2); Lymphocytes # (Auto) 0.7 K/mm3 (1.2-5.4); Mean Corpuscular HGB Conc 34 % (32-34); Mean Corpuscular Hemoglobin 36 pg (28-32); Mean Corpuscular Volume 107 fl (84-94); Monocytes # (Auto) 0.2 K/mm3 (0.0-0.8); Monocytes % (Auto) 5.7 % (0.0-7.3); Platelet Count 141 K/mm3 (140-440); Red Blood Count 3.97 M/mm3 (3.65-5.03)
[2018-01-23 02:01] LABS: Albumin 3.3 g/dL (3.9-5); Calcium 9.2 mg/dL (8.4-10.2)
[2018-01-23 02:09] LABS: INR 2.73 (0.87-1.13)
[2018-01-23] MEDS: LASIX IV SCH ×2 (05:48→17:44)
--- NOTE | 2018-01-23 08:23 | Progress Note ---
Assessment and Plan Assessment and plan: A/P Congestive hepatopathy with coagulopathy 2/2 decompensated HF monitor LFTs monitor PT/INR daily Bleeding precautions at all times Severe HFrEF, per cardio reccs cardio following Chronic Afib, now rate controlled did not tolerate Amiodarone drip f/u cardio reccs Severe Cardiomyopathy per cardio h/o Alcohol abuse counseled h/o Tobacco abuse counseled cessation MAGALY vs on CKD monitor closely Pt is at risk of deterioration due to his current medical condition Monitor closely Further pt mgt per hospital course Dispo: per hospital course and per cardio team Disposition Plan: per hospital course Total Time Spent with Patient (Minutes): 25 mins History Interval history: Started on Amiodarone drip, but pt thought that he may have reacted to it. Had severe abd pain, difficulty in breathing and was diaphoretic. Drip was aborted and his symptoms improved. RN informed the cardio team. Worried about his current condition. Denies CP. Admitted to prior smoking and alcohol abuse. Hospitalist Physical - Constitutional Vitals: Temp Pulse Resp BP Pulse Ox 98.3 F 41 L 17 99/82 94 01/23/18 05:39 01/23/18 05:39 01/23/18 05:39 01/23/18 05:39 01/23/18 05:39 General appearance: Present: no acute distress, other (ill appearing) - EENT Eyes: Present: PERRL, EOM intact, scleral icterus ENT: hearing intact, clear oral mucosa - Neck Neck: Present: supple, normal ROM - Respiratory Respiratory: bilateral: rhonchi, negative: rales, other (fair AE Bilaterally) - Cardiovascular Rhythm: irregularly irregular Heart Sounds: Present: S1 & S2 - Extremities Extremities: pulses intact, normal temperature, normal color - Abdominal General gastrointestinal: soft, non-tender, non-distended, other (protuberant) - Integumentary Integumentary: Present: clear, warm, dry - Psychiatric Psychiatric: appropriate mood/affect, intact judgment & insight, memory intact, cooperative - Neurologic Neurologic: CNII-XII intact, moves all extremities - Allied Health Allied health notes reviewed: nursing, social work, case management Results - Labs CBC & Chem 7: 01/23/18 01:21 01/23/18 01:21 Labs: Laboratory Last Values WBC 3.3 K/mm3 (4.5-11.0) L 01/23/18 01:21 RBC 3.97 M/mm3 (3.65-5.03) 01/23/18 01:21 Hgb 14.4 gm/dl (11.8-15.2) 01/23/18 01:21 Hct 42.5 % (35.5-45.6) 01/23/18 01:21 MCV 107 fl (84-94) H 01/23/18 01:21 MCH 36 pg (28-32) H 01/23/18 01:21 MCHC 34 % (32-34) 01/23/18 01:21 RDW 14.0 % (13.2-15.2) 01/23/18 01:21 Plt Count 141 K/mm3 (140-440) 01/23/18 01:21 Lymph % (Auto) 21.0 % (13.4-35.0) 01/23/18 01:21 [place] % (Auto) 5.7 % (0.0-7.3) 01/23/18 01:21 Eos % (Auto) 4.9 % (0.0-4.3) H 01/23/18 01:21 Baso % (Auto) 1.0 % (0.0-1.8) 01/23/18 01:21 Lymph # 0.7 K/mm3 (1.2-5.4) L 01/23/18 01:21 [place] # 0.2 K/mm3 (0.0-0.8) 01/23/18 01:21 Eos # 0.2 K/mm3 (0.0-0.4) 01/23/18 01:21 Baso # 0.0 K/mm3 (0.0-0.1) 01/23/18 01:21 Seg Neutrophils % 67.4 % (40.0-70.0) 01/23/18 01:21 Seg Neutrophils # 2.2 K/mm3 (1.8-7.7) 01/23/18 01:21 PT 30.8 Sec. (12.2-14.9) H 01/23/18 01:21 INR 2.73 (0.87-1.13) H 01/23/18 01:21 APTT 47.9 Sec. (24.2-36.6) H 01/16/18 13:48 D-Dimer 633.35 ng/mlDDU (0-234) H 01/16/18 17:51 Sodium 134 mmol/L (137-145) L 01/23/18 01:21 Potassium 4.9 mmol/L (3.6-5.0) 01/23/18 01:21 Chloride 99.5 mmol/L (98-107) 01/23/18 01:21 Carbon Dioxide 23 mmol/L (22-30) 01/23/18 01:21 Anion Gap 16 mmol/L 01/23/18 01:21 BUN 47 mg/dL (9-20) H 01/23/18 01:21 Creatinine 1.6 mg/dL (0.8-1.5) H 01/23/18 01:21 Estimated GFR 53 ml/min 01/23/18 01:21 BUN/Creatinine Ratio 29 % 01/23/18 01:21 Glucose 98 mg/dL (75-100) 01/23/18 01:21 Calcium 9.2 mg/dL (8.4-10.2) 01/23/18 01:21 Phosphorus 4.50 mg/dL (2.5-4.5) 01/17/18 05:02 Magnesium 1.70 mg/dL (1.7-2.3) 01/21/18 05:39 Total Bilirubin 3.70 mg/dL (0.1-1.2) H 01/23/18 01:21 Direct Bilirubin 2.9 mg/dL (0-0.2) H 01/17/18 05:02 Indirect Bilirubin 1.5 mg/dL 01/17/18 05:02 AST 20 units/L (5-40) 01/23/18 01:21 ALT 13 units/L (7-56) 01/23/18 01:21 Alkaline Phosphatase 94 units/L (35-129) 01/23/18 01:21 Total Creatine Kinase 42 units/L (55-170) L 01/16/18 13:48 CK-MB (CK-2) 1.5 ng/mL (0.0-4.0) 01/16/18 13:48 CK-MB (CK-2) Rel Index 3.5 (0-4) 01/16/18 13:48 Troponin T 0.058 ng/mL (0.00-0.029) H 01/16/18 13:48 NT-Pro-B Natriuret Pep 37871 pg/mL (0-900) H 01/16/18 17:51 Total Protein 7.2 g/dL (6.3-8.2) 01/23/18 01:21 Albumin 3.3 g/dL (3.9-5) L 01/23/18 01:21 Albumin/Globulin Ratio 0.8 % 01/23/18 01:21 Triglycerides 79 mg/dL (2-149) 01/16/18 13:48 Cholesterol 84 mg/dL (50-199) 01/16/18 13:48 LDL Cholesterol Direct 49 mg/dL (50-130) L 01/16/18 13:48 HDL Cholesterol 30 mg/dL (40-59) L 01/16/18 13:48 Cholesterol/HDL Ratio 2.80 % 01/16/18 13:48 Urine Color Yellow (Yellow) 01/16/18 14:15 Urine Turbidity Clear (Clear) 01/16/18 14:15 Urine pH 6.0 (5.0-7.0) 01/16/18 14:15 Ur Specific [place] 1.010 (1.003-1.030) 01/16/18 14:15 Urine Protein <15 mg/dl mg/dL (Negative) 01/16/18 14:15 Urine Glucose (UA) Neg mg/dL (Negative) 01/16/18 14:15 Urine Ketones Neg mg/dL (Negative) 01/16/18 14:15 Urine Blood Neg (Negative) 01/16/18 14:15 Urine Nitrite Neg (Negative) 01/16/18 14:15 Urine Bilirubin Neg (Negative) 01/16/18 14:15 Urine Urobilinogen 4.0 mg/dL (<2.0) 01/16/18 14:15 Ur Leukocyte Esterase Neg (Negative) 01/16/18 14:15 Urine WBC (Auto) 2.0 /HPF (0.0-6.0) 01/16/18 14:15 Urine RBC (Auto) 4.0 /HPF (0.0-6.0) 01/16/18 14:15 U Epithel Cells (Auto) < 1.0 /HPF (0-13.0) 01/16/18 14:15 Hyaline Casts 3 /LPF 01/16/18 14:15 Digoxin 1.6 ng/mL (0.9-2.0) 01/16/18 17:51 Hepatitis A IgM Ab Nonreactive (NonReactive) 01/18/18 15:13 Hep Bs Antigen Non-reactive (Negative) 01/18/18 15:13 Hep B Core IgM Ab Non-reactive (NonReactive) 01/18/18 15:13 Hepatitis C Antibody Non-reactive (NonReactive) 01/18/18 15:13 - Imaging and Cardiology EKG: report reviewed, image reviewed Chest x-ray: report reviewed, image reviewed
[2018-01-23] MEDS ORDERED: CORDARONE 150 MG in D5W 100 ML IV ONE (08:56)
[2018-01-23] MEDS: FOLVITE PO SCH (10:42)
[2018-01-23] MEDS: ALDACTONE PO SCH (10:42)
[2018-01-23] MEDS: CORDARONE PO SCH ×2 (10:42→14:27)
[2018-01-23] MEDS: XARELTO PO SCH (10:42)
[2018-01-23] MEDS: VITAMIN D3 PO SCH (10:42)
[2018-01-23] MEDS: PRAVACHOL PO SCH (10:43)
[2018-01-23] MEDS: SODIUM CHLORIDE FLUSH SYRINGE 10 ML IV SCH ×2 (11:01→22:22)
--- NOTE | 2018-01-23 11:34 | Progress Note ---
Assessment and Plan Optimize HR - give additional bolus of IV amio 150mg. Consider reintroduction of home Coreg and/or Entresto if/when BPs permit. The patient has been seen in conjunction with Dr. Esposito who agrees with the assessment and plan of care. - Patient Problems (1) Acute on chronic combined systolic and diastolic congestive heart failure Current Visit: Yes Status: Acute (2) Non-ischemic cardiomyopathy Current Visit: Yes Status: Chronic (3) S/P implantation of automatic cardioverter/defibrillator (AICD) Current Visit: Yes Status: Chronic (4) Permanent atrial fibrillation Current Visit: Yes Status: Chronic (5) Elevated troponin Current Visit: Yes Status: Acute (6) CKD (chronic kidney disease) Current Visit: Yes Status: Chronic (7) Hypertension Current Visit: Yes Status: Chronic (8) Total bilirubin, elevated Current Visit: Yes Status: Acute (9) EtOH dependence Current Visit: Yes Status: Chronic Qualifiers: Complication of substance-induced condition: with unspecified complication Subjective Date of service: 01/23/18 Principal diagnosis: HF Interval history: pt resting in bed, states he was restless overnight. tele reviewed- pt in AFib with HR 100s - 130s overnight. Objective Last Vital Signs Temp 97.6 F 01/23/18 08:53 Pulse 50 L 01/23/18 08:53 Resp 18 01/23/18 08:53 BP 123/8 01/23/18 08:53 Pulse Ox 98 01/23/18 08:53 - Physical Examination General: No Apparent Distress HEENT: Positive: PERRL, Normocephaly, Mucus Membranes Moist Neck: Positive: neck supple, trachea midline Cardiac: Positive: irregularly irregular, S1/S2 Lungs: Positive: clear to auscultation Neuro: Positive: Grossly Intact Abdomen: Positive: Soft. Negative: Tender Skin: Negative: Rash Musculoskeletal: No Pain Extremities: Present: edema (BLE ankles) - Labs and Meds Cardiac Enzymes 01/23/18 Range/Units 01:21 AST 20 (5-40) units/L Coagulation 01/23/18 Range/Units 01:21 PT 30.8 H (12.2-14.9) Sec. INR 2.73 H (0.87-1.13) CBC 01/23/18 Range/Units 01:21 WBC 3.3 L (4.5-11.0) K/mm3 RBC 3.97 (3.65-5.03) M/mm3 Hgb 14.4 (11.8-15.2) gm/dl Hct 42.5 (35.5-45.6) % Plt Count 141 (140-440) K/mm3 Lymph # 0.7 L (1.2-5.4) K/mm3 [place] # 0.2 (0.0-0.8) K/mm3 Eos # 0.2 (0.0-0.4) K/mm3 Baso # 0.0 (0.0-0.1) K/mm3 Comprehensive Metabolic Panel 01/23/18 Range/Units 01:21 Sodium 134 L (137-145) mmol/L Potassium 4.9 (3.6-5.0) mmol/L Chloride 99.5 (98-107) mmol/L Carbon Dioxide 23 (22-30) mmol/L BUN 47 H (9-20) mg/dL Creatinine 1.6 H (0.8-1.5) mg/dL Glucose 98 (75-100) mg/dL Calcium 9.2 (8.4-10.2) mg/dL AST 20 (5-40) units/L ALT 13 (7-56) units/L Alkaline Phosphatase 94 (35-129) units/L Total Protein 7.2 (6.3-8.2) g/dL Albumin 3.3 L (3.9-5) g/dL - Imaging and Cardiology EKG: report reviewed, image reviewed Echo: report reviewed (11/2017 showed EF 5-10%, LV severely dilated, mild LVH, restrictive diastolic filling, RV mod dilated, RV systolic function mildly reduced, pacemaker wire in RV, RA severely dilated, severe MR, mod to severe TR , pulm HTN with RVSP 67mmHg, trivial pericardial effusion. ) Cardiac cath: report reviewed (10/2015 showed normal coronaries, large epicardial vessels, severe LV dysfunction. ) - Telemetry EKG Rhythm: Atrial Fibrillation
[2018-01-23] MEDS: XANAX PO PRN (17:45)
[2018-01-24] MEDS: CORDARONE PO SCH ×4 (00:22→21:19)
[2018-01-24 02:09] LABS: Hematocrit 42.7 % (35.5-45.6); Hemoglobin 14.2 gm/dl (11.8-15.2); Mean Corpuscular HGB Conc 33 % (32-34); Mean Corpuscular Hemoglobin 36 pg (28-32); Mean Corpuscular Volume 108 fl (84-94); Platelet Count 142 K/mm3 (140-440); Red Blood Count 3.95 M/mm3 (3.65-5.03); Red Cell Distribution Width 13.8 % (13.2-15.2)
[2018-01-24 02:21] LABS: INR 3.17 (0.87-1.13)
[2018-01-24] MEDS: XANAX PO PRN ×2 (02:54→21:19)
[2018-01-24 03:10] LABS: Alanine Aminotransferase 13 units/L (7-56); Albumin 3.4 g/dL (3.9-5); BUN/Creatinine Ratio 37; Blood Urea Nitrogen 52 mg/dL (9-20); Calcium 9.3 mg/dL (8.4-10.2); Hemolysis Index 15
[2018-01-24] MEDS: LASIX IV SCH ×2 (05:57→18:34)
[2018-01-24] MEDS: VITAMIN D3 PO SCH (09:48)
[2018-01-24] MEDS: ALDACTONE PO SCH (09:49)
[2018-01-24] MEDS: XARELTO PO SCH (09:49)
[2018-01-24] MEDS: FOLVITE PO SCH (09:50)
[2018-01-24] MEDS: PRAVACHOL PO SCH (09:50)
[2018-01-24] MEDS: SODIUM CHLORIDE FLUSH SYRINGE 10 ML IV SCH ×2 (09:51→21:20)
--- NOTE | 2018-01-24 12:17 | Progress Note ---
Assessment and Plan Continue loading Amiodarone for rate control. - Patient Problems (1) Acute on chronic HFrEF (heart failure with reduced ejection fraction) Current Visit: Yes Status: Acute (2) Permanent atrial fibrillation with rapid ventricular response Current Visit: Yes Status: Acute (3) Non-ischemic cardiomyopathy Current Visit: Yes Status: Chronic (4) AICD (automatic cardioverter/defibrillator) present Current Visit: Yes Status: Chronic (5) CKD (chronic kidney disease) Current Visit: Yes Status: Chronic (6) EtOH dependence Current Visit: Yes Status: Chronic Qualifiers: Complication of substance-induced condition: with unspecified complication Subjective Date of service: 01/24/18 Principal diagnosis: Acute on chronic HFrEF, NICMP, Perm Afib with RVR, CKD, ETOH abuse Interval history: C/o shortness of breath last night. Remains in rapid Afib. Objective Vital Signs Last Vital Signs Temp 97.6 F 01/24/18 04:25 Pulse 127 H 01/24/18 09:49 Resp 18 01/24/18 04:25 BP 103/82 01/24/18 09:49 Pulse Ox 95 01/24/18 09:53 - Physical Examination General: No Apparent Distress HEENT: Positive: EOMI, Normocephaly, Mucus Membranes Moist Neck: Positive: neck supple, trachea midline Cardiac: Positive: irregularly irregular, S1/S2 Lungs: Positive: clear to auscultation Neuro: Positive: Grossly Intact Abdomen: Positive: Soft, Active Bowel Sounds. Negative: Tender Skin: Positive: Clear. Negative: Rash Musculoskeletal: Normal Range of Motion Extremities: Present: edema (BLE ankles) - Labs and Meds Cardiac Enzymes 01/24/18 Range/Units 01:53 AST 22 (5-40) units/L Coagulation 01/24/18 Range/Units 01:53 PT 34.7 H (12.2-14.9) Sec. INR 3.17 H (0.87-1.13) CBC 01/24/18 Range/Units 01:53 WBC 4.7 (4.5-11.0) K/mm3 RBC 3.95 (3.65-5.03) M/mm3 Hgb 14.2 (11.8-15.2) gm/dl Hct 42.7 (35.5-45.6) % Plt Count 142 (140-440) K/mm3 Comprehensive Metabolic Panel 01/24/18 Range/Units 01:53 Sodium 131 L (137-145) mmol/L Potassium 4.5 (3.6-5.0) mmol/L Chloride 97.2 L (98-107) mmol/L Carbon Dioxide 20 L (22-30) mmol/L BUN 52 H (9-20) mg/dL Creatinine 1.4 (0.8-1.5) mg/dL Glucose 109 H (75-100) mg/dL Calcium 9.3 (8.4-10.2) mg/dL AST 22 (5-40) units/L ALT 13 (7-56) units/L Alkaline Phosphatase 95 (35-129) units/L Total Protein 7.5 (6.3-8.2) g/dL Albumin 3.4 L (3.9-5) g/dL - Imaging and Cardiology EKG: image reviewed Echo: report reviewed (11/2017 showed EF 5-10%, LV severely dilated, mild LVH, restrictive diastolic filling, RV mod dilated, RV systolic function mildly reduced, pacemaker wire in RV, RA severely dilated, severe MR, mod to severe TR , pulm HTN with RVSP 67mmHg, trivial pericardial effusion. ) Cardiac cath: report reviewed (10/2015 showed normal coronaries, large epicardial vessels, severe LV dysfunction. ) - Telemetry EKG Rhythm: Atrial Fibrillation (with RVR)
[2018-01-24] MEDS ORDERED: CORDARONE 150 MG in D5W 97 ML IV ONE (13:19)
--- NOTE | 2018-01-24 15:12 | Progress Note ---
Assessment and Plan Assessment and plan: Patient is a 67 yo man with a history of systolic heart failure, non ischemic Cardiomyopathy with AICD, CKD 3, tobacco dependency, afib on Xarelto anticoagulation, hypertension, ETOH dependency and dyslipidemia who presented to [facility] ER on 01/16/2018 for SOB. He was found to have CHF Decompensation, Acute Respiratory Failure, and Atrial Fib with RVR. * LHC done 10/2015 showed normal coronaries, large epicardial vessels, severe LV dysfunction. * Echo done 11/2017 showed EF 5-10%, LV severely dilated, mild LVH, restrictive diastolic filling, RV mod dilated, RV systolic function mildly reduced, pacemaker wire in RV, RA severely dilated, severe MR, mod to severe TR, pulm HTN with RVSP 67mmHg, trivial pericardial effusion. Acute hypoxic respiratory failure: Supplemental oxygen, nebulizer therapy, NIPPV as clinically indicated, suspected secondary to CHF decompensation. Treat CHF with diuresis. Acute on chronic systolic HF, worsening EF, 5-10%: treat with lasix, Cardiology is following Afib with RVR: on iv amiodarone drip per Cardiology: continue Xarelto and oral Amiodarone Moderate to severe protein calorie malnutrition: [employer] Consult[employer] consulted [facility] AICD in situ: continue tele monitoring for now CKD stage 3, Monitor renal function HTN with heart disease, Monitor BP, adjust meds as needed HLP, hold statin for abnormal LFT Abnormal LFT, chronically elevated, order hepatitis panel ETOH use, monitor for withdrawal: on CIWA protocol Tobacco use, ip counsel on stopping Noncompliance, counseling done DVT prophylaxis: on Xarelto full code Disposition: continue inpatient care, once HR has stablized then d/c per Cardiology, try to wean off O2, if he needs O2 it will be on Friday. History Interval history: Patient was seen and examined. Follow-up on current diagnosis of sob, which has improved, still in afib with difficult to control rate. Overnight uneventful. Patient denies any chest pain, shortness breath, nausea/vomiting or severe headaches. Imaging, nursing note, chart, labs and old chart reviewed. Discussed with patient. Hospitalist Physical - Physical exam Narrative exam: GEN: thin, ill appearing, NAD, Awake, Alert, Orientated x 3 on 2 liters o2 HEENT: NCAT, EOMI, PERRL, OP Clear NECK: supple, no adenopathy, no thyromegaly, no JVD CVS/HEART: irregular, normal S1S2, pulses present bilaterally CHEST/LUNGS: diminished bs bilateral Symmetrical chest expansion, good air entry bilaterally GI/Abdomen: soft, NTND, good bowel sounds, no guarding or rebound /Bladder: no suprapubic tenderness, no CVA or paraspinal tenderness EXT/Skin: no c/c/e, no obvious rash MSK: FROM x 4 Neuro: CN 2-12 grossly intact, no new focal deficits Psych: calm - Constitutional Vitals: Temp Pulse Resp BP Pulse Ox 97.9 F 100 H 20 92/58 0 L 01/24/18 13:01 01/24/18 13:01 01/24/18 13:01 01/24/18 13:01 01/24/18 13:01 General appearance: Present: no acute distress, other (ill appearing) Results - Labs CBC & Chem 7: 01/24/18 01:53 01/24/18 01:53 Labs: Laboratory Last Values WBC 4.7 K/mm3 (4.5-11.0) 01/24/18 01:53 RBC 3.95 M/mm3 (3.65-5.03) 01/24/18 01:53 Hgb 14.2 gm/dl (11.8-15.2) 01/24/18 01:53 Hct 42.7 % (35.5-45.6) 01/24/18 01:53 MCV 108 fl (84-94) H 01/24/18 01:53 MCH 36 pg (28-32) H 01/24/18 01:53 MCHC 33 % (32-34) 01/24/18 01:53 RDW 13.8 % (13.2-15.2) 01/24/18 01:53 Plt Count 142 K/mm3 (140-440) 01/24/18 01:53 Lymph % (Auto) 21.0 % (13.4-35.0) 01/23/18 01:21 [place] % (Auto) 5.7 % (0.0-7.3) 01/23/18 01:21 Eos % (Auto) 4.9 % (0.0-4.3) H 01/23/18 01:21 Baso % (Auto) 1.0 % (0.0-1.8) 01/23/18 01:21 Lymph # 0.7 K/mm3 (1.2-5.4) L 01/23/18 01:21 [place] # 0.2 K/mm3 (0.0-0.8) 01/23/18 01:21 Eos # 0.2 K/mm3 (0.0-0.4) 01/23/18 01:21 Baso # 0.0 K/mm3 (0.0-0.1) 01/23/18 01:21 Seg Neutrophils % 67.4 % (40.0-70.0) 01/23/18 01:21 Seg Neutrophils # 2.2 K/mm3 (1.8-7.7) 01/23/18 01:21 PT 34.7 Sec. (12.2-14.9) H 01/24/18 01:53 INR 3.17 (0.87-1.13) H 01/24/18 01:53 APTT 47.9 Sec. (24.2-36.6) H 01/16/18 13:48 D-Dimer 633.35 ng/mlDDU (0-234) H 01/16/18 17:51 Sodium 131 mmol/L (137-145) L 01/24/18 01:53 Potassium 4.5 mmol/L (3.6-5.0) 01/24/18 01:53 Chloride 97.2 mmol/L (98-107) L 01/24/18 01:53 Carbon Dioxide 20 mmol/L (22-30) L 01/24/18 01:53 Anion Gap 18 mmol/L 01/24/18 01:53 BUN 52 mg/dL (9-20) H 01/24/18 01:53 Creatinine 1.4 mg/dL (0.8-1.5) 01/24/18 01:53 Estimated GFR > 60 ml/min 01/24/18 01:53 BUN/Creatinine Ratio 37 % 01/24/18 01:53 Glucose 109 mg/dL (75-100) H 01/24/18 01:53 Calcium 9.3 mg/dL (8.4-10.2) 01/24/18 01:53 Phosphorus 4.50 mg/dL (2.5-4.5) 01/17/18 05:02 Magnesium 1.70 mg/dL (1.7-2.3) 01/21/18 05:39 Total Bilirubin 3.90 mg/dL (0.1-1.2) H 01/24/18 01:53 Direct Bilirubin 2.9 mg/dL (0-0.2) H 01/17/18 05:02 Indirect Bilirubin 1.5 mg/dL 01/17/18 05:02 AST 22 units/L (5-40) 01/24/18 01:53 ALT 13 units/L (7-56) 01/24/18 01:53 Alkaline Phosphatase 95 units/L (35-129) 01/24/18 01:53 Total Creatine Kinase 42 units/L (55-170) L 01/16/18 13:48 CK-MB (CK-2) 1.5 ng/mL (0.0-4.0) 01/16/18 13:48 CK-MB (CK-2) Rel Index 3.5 (0-4) 01/16/18 13:48 Troponin T 0.058 ng/mL (0.00-0.029) H 01/16/18 13:48 NT-Pro-B Natriuret Pep 91129 pg/mL (0-900) H 01/16/18 17:51 Total Protein 7.5 g/dL (6.3-8.2) 01/24/18 01:53 Albumin 3.4 g/dL (3.9-5) L 01/24/18 01:53 Albumin/Globulin Ratio 0.8 % 01/24/18 01:53 Triglycerides 79 mg/dL (2-149) 01/16/18 13:48 Cholesterol 84 mg/dL (50-199) 01/16/18 13:48 LDL Cholesterol Direct 49 mg/dL (50-130) L 01/16/18 13:48 HDL Cholesterol 30 mg/dL (40-59) L 01/16/18 13:48 Cholesterol/HDL Ratio 2.80 % 01/16/18 13:48 Urine Color Yellow (Yellow) 01/16/18 14:15 Urine Turbidity Clear (Clear) 01/16/18 14:15 Urine pH 6.0 (5.0-7.0) 01/16/18 14:15 Ur Specific [place] 1.010 (1.003-1.030) 01/16/18 14:15 Urine Protein <15 mg/dl mg/dL (Negative) 01/16/18 14:15 Urine Glucose (UA) Neg mg/dL (Negative) 01/16/18 14:15 Urine Ketones Neg mg/dL (Negative) 01/16/18 14:15 Urine Blood Neg (Negative) 01/16/18 14:15 Urine Nitrite Neg (Negative) 01/16/18 14:15 Urine Bilirubin Neg (Negative) 01/16/18 14:15 Urine Urobilinogen 4.0 mg/dL (<2.0) 01/16/18 14:15 Ur Leukocyte Esterase Neg (Negative) 01/16/18 14:15 Urine WBC (Auto) 2.0 /HPF (0.0-6.0) 01/16/18 14:15 Urine RBC (Auto) 4.0 /HPF (0.0-6.0) 01/16/18 14:15 U Epithel Cells (Auto) < 1.0 /HPF (0-13.0) 01/16/18 14:15 Hyaline Casts 3 /LPF 01/16/18 14:15 Digoxin 1.6 ng/mL (0.9-2.0) 01/16/18 17:51 Hepatitis A IgM Ab Nonreactive (NonReactive) 01/18/18 15:13 Hep Bs Antigen Non-reactive (Negative) 01/18/18 15:13 Hep B Core IgM Ab Non-reactive (NonReactive) 01/18/18 15:13 Hepatitis C Antibody Non-reactive (NonReactive) 01/18/18 15:13
[2018-01-24] MEDS: ALUM-MAG HYDROX-SIMETH 200-200-20MG/5ML PO PRN (23:33)
[2018-01-25 09:08] LABS: Albumin 3.5 g/dL (3.9-5); Calcium 9.9 mg/dL (8.4-10.2)
[2018-01-25] MEDS ORDERED: CORDARONE PO SCH (10:00)
[2018-01-25] MEDS: VITAMIN D3 PO SCH (11:28)
[2018-01-25] MEDS: XARELTO PO SCH (11:28)
[2018-01-25] MEDS: PRAVACHOL PO SCH (11:28)
[2018-01-25] MEDS: SODIUM CHLORIDE FLUSH SYRINGE 10 ML IV SCH ×2 (11:30→21:20)
[2018-01-25] MEDS: FOLVITE PO SCH (11:37)
--- NOTE | 2018-01-25 13:09 | Progress Note ---
Assessment and Plan I have explained to him that he has end stage CMP. Resume lasix in am at reduced dose. Will reduce Amiodarone dose once HR is adequately controlled. Ultimately, upon DC, may refer to [facility]. - Patient Problems (1) Acute on chronic HFrEF (heart failure with reduced ejection fraction) Current Visit: Yes Status: Acute (2) Permanent atrial fibrillation with rapid ventricular response Current Visit: Yes Status: Acute (3) Non-ischemic cardiomyopathy Current Visit: Yes Status: Chronic (4) AICD (automatic cardioverter/defibrillator) present Current Visit: Yes Status: Chronic (5) CKD (chronic kidney disease) Current Visit: Yes Status: Chronic (6) EtOH dependence Current Visit: Yes Status: Chronic Qualifiers: Complication of substance-induced condition: with unspecified complication Subjective Date of service: 01/25/18 Principal diagnosis: Acute on chronic HFrEF, NICMP, Perm Afib with RVR, CKD, ETOH abuse Interval history: HR is better today (documented HR by nurse techs have been innacurate all week) , but can still improve further. Remains intermittently dyspneic. Lasix held overnight due to BP and hyponatremia. Objective Vital Signs Temp Pulse Pulse Resp BP BP BP 01/25/18 08:55 97.9 F 138 H 24 100/77 01/25/18 04:00 98.0 F 52 L 18 122/86 01/25/18 03:50 130 H 01/24/18 23:43 98.1 F 42 L 18 95/76 01/24/18 23:35 60 18 01/24/18 23:04 18 87/69 01/24/18 20:41 102 H 01/24/18 20:00 98.3 F 51 L 18 96/79 01/24/18 19:46 01/24/18 17:56 108 H 22 102/67 Pulse Ox 01/25/18 08:55 95 01/25/18 04:00 98 01/25/18 03:50 01/24/18 23:43 97 01/24/18 23:35 97 01/24/18 23:04 01/24/18 20:41 01/24/18 20:00 97 01/24/18 19:46 98 01/24/18 17:56 100 - Physical Examination General: No Apparent Distress HEENT: Positive: EOMI, Normocephaly, Mucus Membranes Moist Neck: Positive: neck supple, trachea midline Cardiac: Positive: Reg Rate and Rhythm, S1/S2 Lungs: Positive: clear to auscultation Neuro: Positive: Grossly Intact Abdomen: Positive: Soft, Active Bowel Sounds. Negative: Tender Skin: Positive: Clear. Negative: Rash Musculoskeletal: Normal Range of Motion Extremities: Absent: edema - Labs and Meds Cardiac Enzymes 01/25/18 Range/Units 07:37 AST 22 (5-40) units/L Comprehensive Metabolic Panel 01/25/18 Range/Units 07:37 Sodium 131 L (137-145) mmol/L Potassium 5.3 H (3.6-5.0) mmol/L Chloride 95.2 L (98-107) mmol/L Carbon Dioxide 19 L (22-30) mmol/L BUN 60 H (9-20) mg/dL Creatinine 1.7 H (0.8-1.5) mg/dL Glucose 101 H (75-100) mg/dL Calcium 9.9 (8.4-10.2) mg/dL AST 22 (5-40) units/L ALT 14 (7-56) units/L Alkaline Phosphatase 84 (35-129) units/L Total Protein 7.9 (6.3-8.2) g/dL Albumin 3.5 L (3.9-5) g/dL - Imaging and Cardiology EKG: image reviewed Echo: report reviewed (11/2017 showed EF 5-10%, LV severely dilated, mild LVH, restrictive diastolic filling, RV mod dilated, RV systolic function mildly reduced, pacemaker wire in RV, RA severely dilated, severe MR, mod to severe TR , pulm HTN with RVSP 67mmHg, trivial pericardial effusion. ) Cardiac cath: report reviewed (10/2015 showed normal coronaries, large epicardial vessels, severe LV dysfunction. ) - Telemetry EKG Rhythm: Atrial Fibrillation (with CVR)
--- NOTE | 2018-01-25 13:39 | Progress Note ---
Assessment and Plan Assessment and plan: Patient is a 67 yo man with a history of systolic heart failure, non ischemic Cardiomyopathy with AICD, CKD 3, tobacco dependency, afib on Xarelto anticoagulation, hypertension, ETOH dependency and dyslipidemia who presented to [facility] ER on 01/16/2018 for SOB. He was found to have CHF Decompensation, Acute Respiratory Failure, and Atrial Fib with RVR. * LHC done 10/2015 showed normal coronaries, large epicardial vessels, severe LV dysfunction. * Echo done 11/2017 showed EF 5-10%, LV severely dilated, mild LVH, restrictive diastolic filling, RV mod dilated, RV systolic function mildly reduced, pacemaker wire in RV, RA severely dilated, severe MR, mod to severe TR, pulm HTN with RVSP 67mmHg, trivial pericardial effusion. Acute hypoxic respiratory failure: Supplemental oxygen, nebulizer therapy, NIPPV as clinically indicated, suspected secondary to CHF decompensation. Treat CHF with diuresis. Acute on chronic systolic HF, worsening EF, 5-10%: treat with lasix, Cardiology is following Afib with RVR: on iv amiodarone drip per Cardiology: continue Xarelto and oral Amiodarone Moderate to severe protein calorie malnutrition: Monotype Machinist consulted [facility] AICD in situ: continue tele monitoring for now CKD stage 3, Monitor renal function HTN with heart disease, Monitor BP, adjust meds as needed HLP, hold statin for abnormal LFT Abnormal LFT, chronically elevated, order hepatitis panel ETOH use, monitor for withdrawal: on CIWA protocol Tobacco use, relocation counselor on stopping Noncompliance, counseling done DVT prophylaxis: on Xarelto full code Disposition: continue inpatient care, once HR has stablized then d/c per Cardiology, try to wean off O2, if he needs O2 it will be on Friday. I sat down and discussed hospice with patient. give kayexalate, lasix reduced History Interval history: Patient was seen and examined. Follow-up on current diagnosis of sob, which has improved, still in afib with difficult to control rate. Overnight eventful with sob. Patient denies any chest pain, shortness breath, nausea/vomiting or severe headaches. Imaging, nursing note, chart, labs and old chart reviewed. Discussed with patient. Hospitalist Physical - Physical exam Narrative exam: GEN: thin, ill appearing, NAD, Awake, Alert, Orientated x 3 on 2 liters o2 HEENT: NCAT, EOMI, PERRL, OP Clear NECK: supple, no adenopathy, no thyromegaly, no JVD CVS/HEART: irregular, normal S1S2, pulses present bilaterally CHEST/LUNGS: diminished bs bilateral Symmetrical chest expansion, good air entry bilaterally GI/Abdomen: soft, NTND, good bowel sounds, no guarding or rebound /Bladder: no suprapubic tenderness, no CVA or paraspinal tenderness EXT/Skin: no c/c/e, no obvious rash MSK: FROM x 4 Neuro: CN 2-12 grossly intact, no new focal deficits Psych: calm - Constitutional Vitals: Temp Pulse Resp BP Pulse Ox 97.9 F 138 H 24 100/77 95 01/25/18 08:55 01/25/18 08:55 01/25/18 08:55 01/25/18 08:55 01/25/18 08:55 General appearance: Present: no acute distress, other (ill appearing) Results - Labs CBC & Chem 7: 01/24/18 01:53 01/25/18 07:37 Labs: Laboratory Last Values WBC 4.7 K/mm3 (4.5-11.0) 01/24/18 01:53 RBC 3.95 M/mm3 (3.65-5.03) 01/24/18 01:53 Hgb 14.2 gm/dl (11.8-15.2) 01/24/18 01:53 Hct 42.7 % (35.5-45.6) 01/24/18 01:53 MCV 108 fl (84-94) H 01/24/18 01:53 MCH 36 pg (28-32) H 01/24/18 01:53 MCHC 33 % (32-34) 01/24/18 01:53 RDW 13.8 % (13.2-15.2) 01/24/18 01:53 Plt Count 142 K/mm3 (140-440) 01/24/18 01:53 Lymph % (Auto) 21.0 % (13.4-35.0) 01/23/18 01:21 [place] % (Auto) 5.7 % (0.0-7.3) 01/23/18 01:21 Eos % (Auto) 4.9 % (0.0-4.3) H 01/23/18 01:21 Baso % (Auto) 1.0 % (0.0-1.8) 01/23/18 01:21 Lymph # 0.7 K/mm3 (1.2-5.4) L 01/23/18 01:21 [place] # 0.2 K/mm3 (0.0-0.8) 01/23/18 01:21 Eos # 0.2 K/mm3 (0.0-0.4) 01/23/18 01:21 Baso # 0.0 K/mm3 (0.0-0.1) 01/23/18 01:21 Seg Neutrophils % 67.4 % (40.0-70.0) 01/23/18 01:21 Seg Neutrophils # 2.2 K/mm3 (1.8-7.7) 01/23/18 01:21 PT 34.7 Sec. (12.2-14.9) H 01/24/18 01:53 INR 3.17 (0.87-1.13) H 01/24/18 01:53 APTT 47.9 Sec. (24.2-36.6) H 01/16/18 13:48 D-Dimer 633.35 ng/mlDDU (0-234) H 01/16/18 17:51 Sodium 131 mmol/L (137-145) L 01/25/18 07:37 Potassium 5.3 mmol/L (3.6-5.0) H 01/25/18 07:37 Chloride 95.2 mmol/L (98-107) L 01/25/18 07:37 Carbon Dioxide 19 mmol/L (22-30) L 01/25/18 07:37 Anion Gap 22 mmol/L 01/25/18 07:37 BUN 60 mg/dL (9-20) H 01/25/18 07:37 Creatinine 1.7 mg/dL (0.8-1.5) H 01/25/18 07:37 Estimated GFR 49 ml/min 01/25/18 07:37 BUN/Creatinine Ratio 35 % 01/25/18 07:37 Glucose 101 mg/dL (75-100) H 01/25/18 07:37 Calcium 9.9 mg/dL (8.4-10.2) 01/25/18 07:37 Phosphorus 4.50 mg/dL (2.5-4.5) 01/17/18 05:02 Magnesium 1.70 mg/dL (1.7-2.3) 01/21/18 05:39 Total Bilirubin 5.40 mg/dL (0.1-1.2) H 01/25/18 07:37 Direct Bilirubin 2.9 mg/dL (0-0.2) H 01/17/18 05:02 Indirect Bilirubin 1.5 mg/dL 01/17/18 05:02 AST 22 units/L (5-40) 01/25/18 07:37 ALT 14 units/L (7-56) 01/25/18 07:37 Alkaline Phosphatase 84 units/L (35-129) 01/25/18 07:37 Total Creatine Kinase 42 units/L (55-170) L 01/16/18 13:48 CK-MB (CK-2) 1.5 ng/mL (0.0-4.0) 01/16/18 13:48 CK-MB (CK-2) Rel Index 3.5 (0-4) 01/16/18 13:48 Troponin T 0.058 ng/mL (0.00-0.029) H 01/16/18 13:48 NT-Pro-B Natriuret Pep 63947 pg/mL (0-900) H 01/16/18 17:51 Total Protein 7.9 g/dL (6.3-8.2) 01/25/18 07:37 Albumin 3.5 g/dL (3.9-5) L 01/25/18 07:37 Albumin/Globulin Ratio 0.8 % 01/25/18 07:37 Triglycerides 79 mg/dL (2-149) 01/16/18 13:48 Cholesterol 84 mg/dL (50-199) 01/16/18 13:48 LDL Cholesterol Direct 49 mg/dL (50-130) L 01/16/18 13:48 HDL Cholesterol 30 mg/dL (40-59) L 01/16/18 13:48 Cholesterol/HDL Ratio 2.80 % 01/16/18 13:48 Urine Color Yellow (Yellow) 01/16/18 14:15 Urine Turbidity Clear (Clear) 01/16/18 14:15 Urine pH 6.0 (5.0-7.0) 01/16/18 14:15 Ur Specific [place] 1.010 (1.003-1.030) 01/16/18 14:15 Urine Protein <15 mg/dl mg/dL (Negative) 01/16/18 14:15 Urine Glucose (UA) Neg mg/dL (Negative) 01/16/18 14:15 Urine Ketones Neg mg/dL (Negative) 01/16/18 14:15 Urine Blood Neg (Negative) 01/16/18 14:15 Urine Nitrite Neg (Negative) 01/16/18 14:15 Urine Bilirubin Neg (Negative) 01/16/18 14:15 Urine Urobilinogen 4.0 mg/dL (<2.0) 01/16/18 14:15 Ur Leukocyte Esterase Neg (Negative) 01/16/18 14:15 Urine WBC (Auto) 2.0 /HPF (0.0-6.0) 01/16/18 14:15 Urine RBC (Auto) 4.0 /HPF (0.0-6.0) 01/16/18 14:15 U Epithel Cells (Auto) < 1.0 /HPF (0-13.0) 01/16/18 14:15 Hyaline Casts 3 /LPF 01/16/18 14:15 Digoxin 1.6 ng/mL (0.9-2.0) 01/16/18 17:51 Hepatitis A IgM Ab Nonreactive (NonReactive) 01/18/18 15:13 Hep Bs Antigen Non-reactive (Negative) 01/18/18 15:13 Hep B Core IgM Ab Non-reactive (NonReactive) 01/18/18 15:13 Hepatitis C Antibody Non-reactive (NonReactive) 01/18/18 15:13
[2018-01-25] MEDS ORDERED: KIONEX PO ONE ×2 (14:00→17:00)
[2018-01-25] MEDS: CORDARONE PO SCH ×2 (17:10→21:21)
[2018-01-26 07:27] LABS: Hemoglobin 13.7 gm/dl (11.8-15.2); Mean Corpuscular HGB Conc 33 % (32-34); Mean Corpuscular Hemoglobin 36 pg (28-32); Mean Corpuscular Volume 107 fl (84-94); Platelet Count 152 K/mm3 (140-440); Red Blood Count 3.85 M/mm3 (3.65-5.03); Red Cell Distribution Width 13.8 % (13.2-15.2)
[2018-01-26 07:51] LABS: Calcium 9.7 mg/dL (8.4-10.2)
--- NOTE | 2018-01-26 08:06 | Progress Note ---
Assessment and Plan Assessment and plan: Patient is a 67 yo man with a history of systolic heart failure, non ischemic Cardiomyopathy with AICD, CKD 3, tobacco dependency, afib on Xarelto anticoagulation, hypertension, ETOH dependency and dyslipidemia who presented to [facility] ER on 01/16/2018 for SOB. He was found to have CHF Decompensation, Acute Respiratory Failure, and Atrial Fib with RVR. * LHC done 10/2015 showed normal coronaries, large epicardial vessels, severe LV dysfunction. * Echo done 11/2017 showed EF 5-10%, LV severely dilated, mild LVH, restrictive diastolic filling, RV mod dilated, RV systolic function mildly reduced, pacemaker wire in RV, RA severely dilated, severe MR, mod to severe TR, pulm HTN with RVSP 67mmHg, trivial pericardial effusion. Acute hypoxic respiratory failure: Supplemental oxygen, nebulizer therapy, NIPPV as clinically indicated, suspected secondary to CHF decompensation Acute on chronic systolic HF, worsening EF, 5-10%: treat with lasix, Cardiology is following Afib with RVR: on iv amiodarone drip per Cardiology: continue Xarelto and oral Amiodarone Moderate to severe protein calorie malnutrition: Probate Lawyer consulted [facility] AICD in situ: continue tele monitoring for now ARF with CKD stage 3, vasomotor nephropathy: lasix reduced, Monitor renal function closely HTN with heart disease, Monitor BP, adjust meds as needed HLP, hold statin for abnormal LFT Abnormal LFT, resolved, hepatitis panel negative ETOH use, monitor for withdrawal: on CIWA protocol Tobacco use, certified rehabilitation counselor on stopping Noncompliance, counseling done DVT prophylaxis: on Xarelto Hyperkalemia: treated with kayexalate, daily bmp monitoring Advance care planning: full code, had a long sit down discussion of prognosis, expectations and hospice Disposition: continue inpatient care, once symptoms improved and cleared by Cardiology, try to wean off O2, consult case management to start to arrange home o2 History Interval history: Patient was seen and examined. Follow-up on current diagnosis of sob, which has improved, still in afib with rate difficult to control. Overnight eventful with sob. Patient denies any chest pain, shortness breath, nausea/vomiting or severe headaches. Imaging, nursing note, chart, labs and old chart reviewed. Discussed with patient. Hospitalist Physical - Physical exam Narrative exam: GEN: thin, ill appearing, NAD, Awake, Alert, Orientated x 3 on 2 liters o2 HEENT: NCAT, EOMI, PERRL, OP Clear NECK: supple, no adenopathy, no thyromegaly, no JVD CVS/HEART: irregular, normal S1S2, pulses present bilaterally CHEST/LUNGS: diminished bs bilateral Symmetrical chest expansion, good air entry bilaterally GI/Abdomen: soft, NTND, good bowel sounds, no guarding or rebound /Bladder: no suprapubic tenderness, no CVA or paraspinal tenderness EXT/Skin: no c/c/e, no obvious rash MSK: FROM x 4 Neuro: CN 2-12 grossly intact, no new focal deficits Psych: calm - Constitutional Vitals: Temp Pulse Resp BP Pulse Ox 97.5 F L 48 L 18 115/81 100 01/26/18 07:39 01/26/18 07:39 01/26/18 07:39 01/26/18 07:39 01/26/18 07:39 General appearance: Present: no acute distress, other (ill appearing) Results - Labs CBC & Chem 7: 01/26/18 06:04 01/26/18 06:04 Labs: Laboratory Last Values WBC 5.7 K/mm3 (4.5-11.0) 01/26/18 06:04 RBC 3.85 M/mm3 (3.65-5.03) 01/26/18 06:04 Hgb 13.7 gm/dl (11.8-15.2) 01/26/18 06:04 Hct 41.0 % (35.5-45.6) 01/26/18 06:04 MCV 107 fl (84-94) H 01/26/18 06:04 MCH 36 pg (28-32) H 01/26/18 06:04 MCHC 33 % (32-34) 01/26/18 06:04 RDW 13.8 % (13.2-15.2) 01/26/18 06:04 Plt Count 152 K/mm3 (140-440) 01/26/18 06:04 Lymph % (Auto) 21.0 % (13.4-35.0) 01/23/18 01:21 [place] % (Auto) 5.7 % (0.0-7.3) 01/23/18 01:21 Eos % (Auto) 4.9 % (0.0-4.3) H 01/23/18 01:21 Baso % (Auto) 1.0 % (0.0-1.8) 01/23/18 01:21 Lymph # 0.7 K/mm3 (1.2-5.4) L 01/23/18 01:21 [place] # 0.2 K/mm3 (0.0-0.8) 01/23/18 01:21 Eos # 0.2 K/mm3 (0.0-0.4) 01/23/18 01:21 Baso # 0.0 K/mm3 (0.0-0.1) 01/23/18 01:21 Seg Neutrophils % 67.4 % (40.0-70.0) 01/23/18 01:21 Seg Neutrophils # 2.2 K/mm3 (1.8-7.7) 01/23/18 01:21 PT 34.7 Sec. (12.2-14.9) H 01/24/18 01:53 INR 3.17 (0.87-1.13) H 01/24/18 01:53 APTT 47.9 Sec. (24.2-36.6) H 01/16/18 13:48 D-Dimer 633.35 ng/mlDDU (0-234) H 01/16/18 17:51 Sodium 134 mmol/L (137-145) L 01/26/18 06:04 Potassium 4.6 mmol/L (3.6-5.0) 01/26/18 06:04 Chloride 95.4 mmol/L (98-107) L 01/26/18 06:04 Carbon Dioxide 21 mmol/L (22-30) L 01/26/18 06:04 Anion Gap 22 mmol/L 01/26/18 06:04 BUN 61 mg/dL (9-20) H 01/26/18 06:04 Creatinine 1.6 mg/dL (0.8-1.5) H 01/26/18 06:04 Estimated GFR 53 ml/min 01/26/18 06:04 BUN/Creatinine Ratio 38 % 01/26/18 06:04 Glucose 103 mg/dL (75-100) H 01/26/18 06:04 Calcium 9.7 mg/dL (8.4-10.2) 01/26/18 06:04 Phosphorus 4.50 mg/dL (2.5-4.5) 01/17/18 05:02 Magnesium 2.10 mg/dL (1.7-2.3) 01/26/18 06:04 Total Bilirubin 5.40 mg/dL (0.1-1.2) H 01/25/18 07:37 Direct Bilirubin 2.9 mg/dL (0-0.2) H 01/17/18 05:02 Indirect Bilirubin 1.5 mg/dL 01/17/18 05:02 AST 22 units/L (5-40) 01/25/18 07:37 ALT 14 units/L (7-56) 01/25/18 07:37 Alkaline Phosphatase 84 units/L (35-129) 01/25/18 07:37 Total Creatine Kinase 42 units/L (55-170) L 01/16/18 13:48 CK-MB (CK-2) 1.5 ng/mL (0.0-4.0) 01/16/18 13:48 CK-MB (CK-2) Rel Index 3.5 (0-4) 01/16/18 13:48 Troponin T 0.058 ng/mL (0.00-0.029) H 01/16/18 13:48 NT-Pro-B Natriuret Pep 36786 pg/mL (0-900) H 01/16/18 17:51 Total Protein 7.9 g/dL (6.3-8.2) 01/25/18 07:37 Albumin 3.5 g/dL (3.9-5) L 01/25/18 07:37 Albumin/Globulin Ratio 0.8 % 01/25/18 07:37 Triglycerides 79 mg/dL (2-149) 01/16/18 13:48 Cholesterol 84 mg/dL (50-199) 01/16/18 13:48 LDL Cholesterol Direct 49 mg/dL (50-130) L 01/16/18 13:48 HDL Cholesterol 30 mg/dL (40-59) L 01/16/18 13:48 Cholesterol/HDL Ratio 2.80 % 01/16/18 13:48 Urine Color Yellow (Yellow) 01/16/18 14:15 Urine Turbidity Clear (Clear) 01/16/18 14:15 Urine pH 6.0 (5.0-7.0) 01/16/18 14:15 Ur Specific [place] 1.010 (1.003-1.030) 01/16/18 14:15 Urine Protein <15 mg/dl mg/dL (Negative) 01/16/18 14:15 Urine Glucose (UA) Neg mg/dL (Negative) 01/16/18 14:15 Urine Ketones Neg mg/dL (Negative) 01/16/18 14:15 Urine Blood Neg (Negative) 01/16/18 14:15 Urine Nitrite Neg (Negative) 01/16/18 14:15 Urine Bilirubin Neg (Negative) 01/16/18 14:15 Urine Urobilinogen 4.0 mg/dL (<2.0) 01/16/18 14:15 Ur Leukocyte Esterase Neg (Negative) 01/16/18 14:15 Urine WBC (Auto) 2.0 /HPF (0.0-6.0) 01/16/18 14:15 Urine RBC (Auto) 4.0 /HPF (0.0-6.0) 01/16/18 14:15 U Epithel Cells (Auto) < 1.0 /HPF (0-13.0) 01/16/18 14:15 Hyaline Casts 3 /LPF 01/16/18 14:15 Digoxin 1.6 ng/mL (0.9-2.0) 01/16/18 17:51 Hepatitis A IgM Ab Nonreactive (NonReactive) 01/18/18 15:13 Hep Bs Antigen Non-reactive (Negative) 01/18/18 15:13 Hep B Core IgM Ab Non-reactive (NonReactive) 01/18/18 15:13 Hepatitis C Antibody Non-reactive (NonReactive) 01/18/18 15:13
[2018-01-26] MEDS: CORDARONE PO SCH ×3 (08:35→21:46)
[2018-01-26] MEDS: XARELTO PO SCH (10:19)
[2018-01-26] MEDS: PRAVACHOL PO SCH (10:19)
[2018-01-26] MEDS: VITAMIN D3 PO SCH (10:19)
[2018-01-26] MEDS: FOLVITE PO SCH (10:20)
--- NOTE | 2018-01-26 14:03 | Progress Note ---
Assessment and Plan Resume milrinone gtt. Consider reintroduction of home Coreg and/or Entresto if/when BPs permit. The patient has been seen in conjunction with Dr. Prabhakar who agrees with the assessment and plan of care. - Patient Problems (1) Acute on chronic combined systolic and diastolic congestive heart failure Current Visit: Yes Status: Acute (2) Non-ischemic cardiomyopathy Current Visit: Yes Status: Chronic (3) S/P implantation of automatic cardioverter/defibrillator (AICD) Current Visit: Yes Status: Chronic (4) Permanent atrial fibrillation Current Visit: Yes Status: Chronic (5) Elevated troponin Current Visit: Yes Status: Acute (6) CKD (chronic kidney disease) Current Visit: Yes Status: Chronic (7) Hypertension Current Visit: Yes Status: Chronic (8) Total bilirubin, elevated Current Visit: Yes Status: Acute (9) EtOH dependence Current Visit: Yes Status: Chronic Qualifiers: Complication of substance-induced condition: with unspecified complication Subjective Date of service: 01/26/18 Principal diagnosis: Acute on chronic HFrEF, NICMP, Perm Afib with RVR, CKD, ETOH abuse Interval history: pt resting in bed, states he was restless overnight. tele reviewed- pt in AFib with HR 100s - 130s overnight, freq PVCs and NSVT. Objective Last Vital Signs Temp 98.3 F 01/26/18 10:46 Pulse 43 L 01/26/18 10:46 Resp 28 H 01/26/18 10:46 BP 84/56 01/26/18 10:46 Pulse Ox 98 01/26/18 10:46 - Physical Examination General: No Apparent Distress HEENT: Positive: EOMI, Normocephaly, Mucus Membranes Moist Neck: Positive: neck supple, trachea midline Cardiac: Positive: irregularly irregular, S1/S2, Tachycardia Lungs: Positive: Decreased Breath Sounds Neuro: Positive: Grossly Intact Abdomen: Positive: Soft, Active Bowel Sounds. Negative: Tender Skin: Positive: Clear. Negative: Rash Musculoskeletal: Normal Range of Motion Extremities: Present: +1 Edema (BLE) - Labs and Meds CBC 01/26/18 Range/Units 06:04 WBC 5.7 (4.5-11.0) K/mm3 RBC 3.85 (3.65-5.03) M/mm3 Hgb 13.7 (11.8-15.2) gm/dl Hct 41.0 (35.5-45.6) % Plt Count 152 (140-440) K/mm3 Comprehensive Metabolic Panel 01/26/18 Range/Units 06:04 Sodium 134 L (137-145) mmol/L Potassium 4.6 (3.6-5.0) mmol/L Chloride 95.4 L (98-107) mmol/L Carbon Dioxide 21 L (22-30) mmol/L BUN 61 H (9-20) mg/dL Creatinine 1.6 H (0.8-1.5) mg/dL Glucose 103 H (75-100) mg/dL Calcium 9.7 (8.4-10.2) mg/dL - Imaging and Cardiology EKG: image reviewed Echo: report reviewed (11/2017 showed EF 5-10%, LV severely dilated, mild LVH, restrictive diastolic filling, RV mod dilated, RV systolic function mildly reduced, pacemaker wire in RV, RA severely dilated, severe MR, mod to severe TR , pulm HTN with RVSP 67mmHg, trivial pericardial effusion. ) Cardiac cath: report reviewed (10/2015 showed normal coronaries, large epicardial vessels, severe LV dysfunction. )
[2018-01-26] MEDS: MILRINONE-D5W 20 MG/100 ML 20 MG/100 ML BAG IV SCH (16:02)
[2018-01-26] MEDS: SODIUM CHLORIDE FLUSH SYRINGE 10 ML IV SCH ×2 (21:26→21:48)
--- NOTE | 2018-01-26 23:20 | XRay Report ---
FINAL REPORT EXAM: XR TIBIA FIBULA 2V RT HISTORY: PAIN TECHNIQUE: Right tibia fibula AP and lateral views PRIORS: None. FINDINGS: No fracture is identified. The joint spaces are within normal limits. No focal bony lesion identified. No radiopaque foreign body seen. IMPRESSION: Negative no acute abnormality.
[2018-01-27] MEDS: PERCOCET 5/325 PO PRN ×4 (01:37→22:32)
[2018-01-27] MEDS: MILRINONE-D5W 20 MG/100 ML 20 MG/100 ML BAG IV SCH ×3 (01:48→20:38)
[2018-01-27 05:51] LABS: Hemoglobin 13.1 gm/dl (11.8-15.2); Mean Corpuscular HGB Conc 34 % (32-34); Mean Corpuscular Hemoglobin 36 pg (28-32); Mean Corpuscular Volume 106 fl (84-94); Platelet Count 157 K/mm3 (140-440); Red Cell Distribution Width 13.4 % (13.2-15.2)
[2018-01-27 06:15] LABS: BUN/Creatinine Ratio 45; Blood Urea Nitrogen 63 mg/dL (9-20); Calcium 9.6 mg/dL (8.4-10.2); Hemolysis Index 19
[2018-01-27] MEDS: CORDARONE PO SCH ×3 (07:58→20:39)
[2018-01-27] MEDS: FOLVITE PO SCH (11:26)
[2018-01-27] MEDS: PRAVACHOL PO SCH (11:26)
[2018-01-27] MEDS: XARELTO PO SCH (11:26)
[2018-01-27] MEDS: VITAMIN D3 PO SCH (11:26)
[2018-01-27] MEDS: SODIUM CHLORIDE FLUSH SYRINGE 10 ML IV SCH ×2 (11:27→22:33)
--- NOTE | 2018-01-27 12:47 | Progress Note ---
Assessment and Plan Pt c/o RLE pain and swelling which began yesterday. Right tib/fib XRay showed no acute findings. Will obtain RLE duplex. Further eval/management per primary. Cont milrinone gtt and cautious diuresis as BPs permit. Consider reintroduction of home Coreg and/or Entresto if/when BPs permit. The patient has been seen in conjunction with Dr. Prabhakar who agrees with the assessment and plan of care. - Patient Problems (1) Acute on chronic combined systolic and diastolic congestive heart failure Current Visit: Yes Status: Acute (2) Non-ischemic cardiomyopathy Current Visit: Yes Status: Chronic (3) S/P implantation of automatic cardioverter/defibrillator (AICD) Current Visit: Yes Status: Chronic (4) Permanent atrial fibrillation Current Visit: Yes Status: Chronic (5) Elevated troponin Current Visit: Yes Status: Acute (6) CKD (chronic kidney disease) Current Visit: Yes Status: Chronic (7) Hypertension Current Visit: Yes Status: Chronic (8) Total bilirubin, elevated Current Visit: Yes Status: Acute (9) EtOH dependence Current Visit: Yes Status: Chronic Qualifiers: Complication of substance-induced condition: with unspecified complication Subjective Date of service: 01/27/18 Principal diagnosis: Acute on chronic HFrEF, NICMP, Perm Afib with RVR, CKD, ETOH abuse Interval history: pt resting in bed, c/o RLE pain and swelling which began yesterday. tele reviewed- pt in AFib with HR 100s - 130s overnight, freq PVCs and NSVT. milrinone gtt infusing. Objective Last Vital Signs Temp 98.3 F 01/27/18 11:55 Pulse 50 L 01/27/18 11:55 Resp 18 01/27/18 11:55 BP 118/77 01/27/18 11:55 Pulse Ox 94 01/27/18 11:55 - Physical Examination General: No Apparent Distress HEENT: Positive: EOMI, Normocephaly, Mucus Membranes Moist Neck: Positive: neck supple, trachea midline Cardiac: Positive: irregularly irregular, S1/S2 Lungs: Positive: Decreased Breath Sounds Neuro: Positive: Grossly Intact Abdomen: Positive: Soft, Active Bowel Sounds. Negative: Tender Skin: Positive: Clear. Negative: Rash Musculoskeletal: Normal Range of Motion Extremities: Present: +1 Edema (BLE) - Labs and Meds CBC 01/27/18 Range/Units 04:45 WBC 5.2 (4.5-11.0) K/mm3 RBC 3.70 (3.65-5.03) M/mm3 Hgb 13.1 (11.8-15.2) gm/dl Hct 39.0 (35.5-45.6) % Plt Count 157 (140-440) K/mm3 Comprehensive Metabolic Panel 01/27/18 Range/Units 04:45 Sodium 132 L (137-145) mmol/L Potassium 4.2 (3.6-5.0) mmol/L Chloride 95.5 L (98-107) mmol/L Carbon Dioxide 23 (22-30) mmol/L BUN 63 H (9-20) mg/dL Creatinine 1.4 (0.8-1.5) mg/dL Glucose 100 (75-100) mg/dL Calcium 9.6 (8.4-10.2) mg/dL - Imaging and Cardiology EKG: image reviewed Echo: report reviewed (11/2017 showed EF 5-10%, LV severely dilated, mild LVH, restrictive diastolic filling, RV mod dilated, RV systolic function mildly reduced, pacemaker wire in RV, RA severely dilated, severe MR, mod to severe TR , pulm HTN with RVSP 67mmHg, trivial pericardial effusion. ) Cardiac cath: report reviewed (10/2015 showed normal coronaries, large epicardial vessels, severe LV dysfunction. )
[2018-01-27] MEDS: LASIX IV SCH (14:10)
--- NOTE | 2018-01-27 14:21 | Progress Note ---
Assessment and Plan Assessment and plan: Patient is a 67 yo man with a history of systolic heart failure, non ischemic Cardiomyopathy with AICD, CKD 3, tobacco dependency, afib on Xarelto anticoagulation, hypertension, ETOH dependency and dyslipidemia who presented to [facility] ER on 01/16/2018 for SOB. He was found to have CHF Decompensation, Acute Respiratory Failure, and Atrial Fib with RVR. * LHC done 10/2015 showed normal coronaries, large epicardial vessels, severe LV dysfunction. * Echo done 11/2017 showed EF 5-10%, LV severely dilated, mild LVH, restrictive diastolic filling, RV mod dilated, RV systolic function mildly reduced, pacemaker wire in RV, RA severely dilated, severe MR, mod to severe TR, pulm HTN with RVSP 67mmHg, trivial pericardial effusion. * LE doppler neg for DVT Acute hypoxic respiratory failure: Supplemental oxygen, nebulizer therapy, NIPPV as clinically indicated, suspected secondary to CHF decompensation Acute on chronic systolic HF, worsening EF, 5-10%: treat with lasix, Cardiology is following, continue Milrinone drip Afib with RVR with hypercoaguble state: continue Xarelto and oral Amiodarone Moderate to severe protein calorie malnutrition: Supervisor Edging consulted [facility] AICD in situ: continue tele monitoring for now ARF with CKD stage 3, vasomotor nephropathy: lasix reduced, Monitor renal function closely HTN with heart disease, Monitor BP, adjust meds as needed HLP, hold statin for abnormal LFT Abnormal LFT, resolved, hepatitis panel negative ETOH use, monitor for withdrawal: on CIWA protocol Tobacco use, employee counselor on stopping Noncompliance, counseling done DVT prophylaxis: on Xarelto Hyperkalemia: treated with kayexalate, daily bmp monitoring Advance care planning: full code, had a long sit down discussion of prognosis, expectations and hospice Disposition: continue inpatient care, once symptoms improved and cleared by Cardiology, try to wean off O2, consult case management to start to arrange home o2 History Interval history: Review of systems Constitutional: No fevers, no malaise, no joint pains CVS: Denies chest pain, still complaining of orthopnea, detail exertion, bipedal edema GI: No abdominal pain, no diarrhea, no vomiting, no constipation Respiratory: , no wheezing, no coughing Hospitalist Physical - Physical exam Narrative exam: General.: Appears well, no distress, nontoxic HEENT: Moist mucous membranes, extraocular muscles intact, no lymphadenopathy Neck: supple Cardiac: S1-S2 heard Lungs: Decreased air entry at bases Abdomen: soft , nontender, nondistended, bowel sounds positive Extremities: Bipedal pitting edema Skin: no rash or lesions Neurologic: no gross focal deficits Psych: appropriate behavior, appropriate mood, corporative, judgment intact - Constitutional Vitals: Temp Pulse Resp BP Pulse Ox 98.3 F 50 L 20 118/77 94 01/27/18 11:55 01/27/18 11:55 01/27/18 14:10 01/27/18 11:55 01/27/18 11:55 General appearance: Present: no acute distress, other (ill appearing) Results - Labs CBC & Chem 7: 01/27/18 04:45 01/27/18 04:45 Labs: Laboratory Last Values WBC 5.2 K/mm3 (4.5-11.0) 01/27/18 04:45 RBC 3.70 M/mm3 (3.65-5.03) 01/27/18 04:45 Hgb 13.1 gm/dl (11.8-15.2) 01/27/18 04:45 Hct 39.0 % (35.5-45.6) 01/27/18 04:45 MCV 106 fl (84-94) H 01/27/18 04:45 MCH 36 pg (28-32) H 01/27/18 04:45 MCHC 34 % (32-34) 01/27/18 04:45 RDW 13.4 % (13.2-15.2) 01/27/18 04:45 Plt Count 157 K/mm3 (140-440) 01/27/18 04:45 Lymph % (Auto) 21.0 % (13.4-35.0) 01/23/18 01:21 [place] % (Auto) 5.7 % (0.0-7.3) 01/23/18 01:21 Eos % (Auto) 4.9 % (0.0-4.3) H 01/23/18 01:21 Baso % (Auto) 1.0 % (0.0-1.8) 01/23/18 01:21 Lymph # 0.7 K/mm3 (1.2-5.4) L 01/23/18 01:21 [place] # 0.2 K/mm3 (0.0-0.8) 01/23/18 01:21 Eos # 0.2 K/mm3 (0.0-0.4) 01/23/18 01:21 Baso # 0.0 K/mm3 (0.0-0.1) 01/23/18 01:21 Seg Neutrophils % 67.4 % (40.0-70.0) 01/23/18 01:21 Seg Neutrophils # 2.2 K/mm3 (1.8-7.7) 01/23/18 01:21 PT 34.7 Sec. (12.2-14.9) H 01/24/18 01:53 INR 3.17 (0.87-1.13) H 01/24/18 01:53 APTT 47.9 Sec. (24.2-36.6) H 01/16/18 13:48 D-Dimer 633.35 ng/mlDDU (0-234) H 01/16/18 17:51 Sodium 132 mmol/L (137-145) L 01/27/18 04:45 Potassium 4.2 mmol/L (3.6-5.0) 01/27/18 04:45 Chloride 95.5 mmol/L (98-107) L 01/27/18 04:45 Carbon Dioxide 23 mmol/L (22-30) 01/27/18 04:45 Anion Gap 18 mmol/L 01/27/18 04:45 BUN 63 mg/dL (9-20) H 01/27/18 04:45 Creatinine 1.4 mg/dL (0.8-1.5) 01/27/18 04:45 Estimated GFR > 60 ml/min 01/27/18 04:45 BUN/Creatinine Ratio 45 % 01/27/18 04:45 Glucose 100 mg/dL (75-100) 01/27/18 04:45 Calcium 9.6 mg/dL (8.4-10.2) 01/27/18 04:45 Phosphorus 4.50 mg/dL (2.5-4.5) 01/17/18 05:02 Magnesium 2.10 mg/dL (1.7-2.3) 01/26/18 06:04 Total Bilirubin 5.40 mg/dL (0.1-1.2) H 01/25/18 07:37 Direct Bilirubin 2.9 mg/dL (0-0.2) H 01/17/18 05:02 Indirect Bilirubin 1.5 mg/dL 01/17/18 05:02 AST 22 units/L (5-40) 01/25/18 07:37 ALT 14 units/L (7-56) 01/25/18 07:37 Alkaline Phosphatase 84 units/L (35-129) 01/25/18 07:37 Total Creatine Kinase 42 units/L (55-170) L 01/16/18 13:48 CK-MB (CK-2) 1.5 ng/mL (0.0-4.0) 01/16/18 13:48 CK-MB (CK-2) Rel Index 3.5 (0-4) 01/16/18 13:48 Troponin T 0.058 ng/mL (0.00-0.029) H 01/16/18 13:48 NT-Pro-B Natriuret Pep 51133 pg/mL (0-900) H 01/16/18 17:51 Total Protein 7.9 g/dL (6.3-8.2) 01/25/18 07:37 Albumin 3.5 g/dL (3.9-5) L 01/25/18 07:37 Albumin/Globulin Ratio 0.8 % 01/25/18 07:37 Triglycerides 79 mg/dL (2-149) 01/16/18 13:48 Cholesterol 84 mg/dL (50-199) 01/16/18 13:48 LDL Cholesterol Direct 49 mg/dL (50-130) L 01/16/18 13:48 HDL Cholesterol 30 mg/dL (40-59) L 01/16/18 13:48 Cholesterol/HDL Ratio 2.80 % 01/16/18 13:48 Urine Color Yellow (Yellow) 01/16/18 14:15 Urine Turbidity Clear (Clear) 01/16/18 14:15 Urine pH 6.0 (5.0-7.0) 01/16/18 14:15 Ur Specific [place] 1.010 (1.003-1.030) 01/16/18 14:15 Urine Protein <15 mg/dl mg/dL (Negative) 01/16/18 14:15 Urine Glucose (UA) Neg mg/dL (Negative) 01/16/18 14:15 Urine Ketones Neg mg/dL (Negative) 01/16/18 14:15 Urine Blood Neg (Negative) 01/16/18 14:15 Urine Nitrite Neg (Negative) 01/16/18 14:15 Urine Bilirubin Neg (Negative) 01/16/18 14:15 Urine Urobilinogen 4.0 mg/dL (<2.0) 01/16/18 14:15 Ur Leukocyte Esterase Neg (Negative) 01/16/18 14:15 Urine WBC (Auto) 2.0 /HPF (0.0-6.0) 01/16/18 14:15 Urine RBC (Auto) 4.0 /HPF (0.0-6.0) 01/16/18 14:15 U Epithel Cells (Auto) < 1.0 /HPF (0-13.0) 01/16/18 14:15 Hyaline Casts 3 /LPF 01/16/18 14:15 Digoxin 1.6 ng/mL (0.9-2.0) 01/16/18 17:51 Hepatitis A IgM Ab Nonreactive (NonReactive) 01/18/18 15:13 Hep Bs Antigen Non-reactive (Negative) 01/18/18 15:13 Hep B Core IgM Ab Non-reactive (NonReactive) 01/18/18 15:13 Hepatitis C Antibody Non-reactive (NonReactive) 01/18/18 15:13
[2018-01-27] MEDS ORDERED: FLEET MINERAL OIL PR ONE (18:34)
[2018-01-28 05:53] LABS: Hematocrit 37.2 % (35.5-45.6); Hemoglobin 12.5 gm/dl (11.8-15.2); Mean Corpuscular HGB Conc 34 % (32-34); Mean Corpuscular Hemoglobin 35 pg (28-32); Mean Corpuscular Volume 106 fl (84-94); Platelet Count 153 K/mm3 (140-440); Red Blood Count 3.52 M/mm3 (3.65-5.03); Red Cell Distribution Width 13.6 % (13.2-15.2)
[2018-01-28 06:17] LABS: BUN/Creatinine Ratio 41; Blood Urea Nitrogen 57 mg/dL (9-20); Calcium 9.5 mg/dL (8.4-10.2); Hemolysis Index 5
[2018-01-28] MEDS: MILRINONE-D5W 20 MG/100 ML 20 MG/100 ML BAG IV SCH (06:35)
[2018-01-28] MEDS ORDERED: SENOKOT PO PRN (06:50)
[2018-01-28] MEDS: MIRALAX 3350 PO SCH (10:25)
[2018-01-28] MEDS: FOLVITE PO SCH (10:25)
[2018-01-28] MEDS: VITAMIN D3 PO SCH (10:25)
[2018-01-28] MEDS: CORDARONE PO SCH ×3 (10:25→20:21)
[2018-01-28] MEDS: PRAVACHOL PO SCH (10:25)
[2018-01-28] MEDS: XARELTO PO SCH (10:26)
[2018-01-28] MEDS: SODIUM CHLORIDE FLUSH SYRINGE 10 ML IV SCH ×2 (10:26→22:51)
[2018-01-28] MEDS: LASIX IV SCH (10:26)
--- NOTE | 2018-01-28 11:30 | Progress Note ---
Assessment and Plan Cont milrinone gtt and cautious diuresis as BPs permit. Consider reintroduction of home Coreg and/or Entresto if/when BPs permit. The patient has been seen in conjunction with Dr. Prabhakar who agrees with the assessment and plan of care. - Patient Problems (1) Acute on chronic combined systolic and diastolic congestive heart failure Current Visit: Yes Status: Acute (2) Non-ischemic cardiomyopathy Current Visit: Yes Status: Chronic (3) S/P implantation of automatic cardioverter/defibrillator (AICD) Current Visit: Yes Status: Chronic (4) Permanent atrial fibrillation Current Visit: Yes Status: Chronic (5) Elevated troponin Current Visit: Yes Status: Acute (6) CKD (chronic kidney disease) Current Visit: Yes Status: Chronic (7) Hypertension Current Visit: Yes Status: Chronic (8) Total bilirubin, elevated Current Visit: Yes Status: Acute (9) EtOH dependence Current Visit: Yes Status: Chronic Qualifiers: Complication of substance-induced condition: with unspecified complication Subjective Date of service: 01/28/18 Principal diagnosis: Acute on chronic HFrEF, NICMP, Perm Afib with RVR, CKD, ETOH abuse Interval history: pt resting in bed, c/o RLE pain improving. tele reviewed- pt in AFib with HR 100s - 130s overnight, freq PVCs and NSVT. milrinone gtt infusing. Objective Last Vital Signs Temp 98.1 F 01/28/18 07:37 Pulse 64 01/28/18 07:37 Resp 22 01/28/18 07:37 BP 120/80 01/28/18 07:37 Pulse Ox 92 01/28/18 07:40 - Physical Examination General: No Apparent Distress HEENT: Positive: EOMI, Normocephaly, Mucus Membranes Moist Neck: Positive: neck supple, trachea midline Cardiac: Positive: irregularly irregular, S1/S2 Lungs: Positive: Decreased Breath Sounds Neuro: Positive: Grossly Intact Abdomen: Positive: Soft, Active Bowel Sounds. Negative: Tender Skin: Positive: Clear. Negative: Rash Musculoskeletal: Normal Range of Motion Extremities: Present: +1 Edema (BLE) - Labs and Meds CBC 01/28/18 Range/Units 05:33 WBC 5.3 (4.5-11.0) K/mm3 RBC 3.52 L (3.65-5.03) M/mm3 Hgb 12.5 (11.8-15.2) gm/dl Hct 37.2 (35.5-45.6) % Plt Count 153 (140-440) K/mm3 Comprehensive Metabolic Panel 01/28/18 Range/Units 05:33 Sodium 133 L (137-145) mmol/L Potassium 4.3 (3.6-5.0) mmol/L Chloride 96.7 L (98-107) mmol/L Carbon Dioxide 23 (22-30) mmol/L BUN 57 H (9-20) mg/dL Creatinine 1.4 (0.8-1.5) mg/dL Glucose 86 (75-100) mg/dL Calcium 9.5 (8.4-10.2) mg/dL - Imaging and Cardiology EKG: image reviewed Echo: report reviewed (11/2017 showed EF 5-10%, LV severely dilated, mild LVH, restrictive diastolic filling, RV mod dilated, RV systolic function mildly reduced, pacemaker wire in RV, RA severely dilated, severe MR, mod to severe TR , pulm HTN with RVSP 67mmHg, trivial pericardial effusion. ) Cardiac cath: report reviewed (10/2015 showed normal coronaries, large epicardial vessels, severe LV dysfunction. )
--- NOTE | 2018-01-28 12:39 | Progress Note ---
Assessment and Plan Assessment and plan: Patient is a 67 yo man with a history of systolic heart failure, non ischemic Cardiomyopathy with AICD, CKD 3, tobacco dependency, afib on Xarelto anticoagulation, hypertension, ETOH dependency and dyslipidemia who presented to [facility] ER on 01/16/2018 for SOB. He was found to have CHF Decompensation, Acute Respiratory Failure, and Atrial Fib with RVR. * LHC done 10/2015 showed normal coronaries, large epicardial vessels, severe LV dysfunction. * Echo done 11/2017 showed EF 5-10%, LV severely dilated, mild LVH, restrictive diastolic filling, RV mod dilated, RV systolic function mildly reduced, pacemaker wire in RV, RA severely dilated, severe MR, mod to severe TR, pulm HTN with RVSP 67mmHg, trivial pericardial effusion. * LE doppler neg for DVT Acute hypoxic respiratory failure: Supplemental oxygen, nebulizer therapy, NIPPV as clinically indicated, suspected secondary to CHF decompensation Acute on chronic systolic HF, worsening EF, 5-10%: treat with lasix, Cardiology is following, continue Milrinone drip Afib with RVR with hypercoaguble state: continue Xarelto and oral Amiodarone Moderate to severe protein calorie malnutrition: Offset Platemaker consulted [facility] AICD in situ: continue tele monitoring for now ARF with CKD stage 3, vasomotor nephropathy: lasix reduced, Monitor renal function closely HTN with heart disease, Monitor BP, adjust meds as needed HLP, hold statin for abnormal LFT Abnormal LFT, resolved, hepatitis panel negative ETOH use, monitor for withdrawal: on CIWA protocol Tobacco use, teacher counselor on stopping Noncompliance, counseling done DVT prophylaxis: on Xarelto Hyperkalemia: treated with kayexalate, daily bmp monitoring pseudogout; steroids added Advance care planning: full code, had a long sit down discussion of prognosis, expectations and hospice Disposition: continue inpatient care, discussed palliative care with hospice with patient, he will be dc with oxygen and palliative care History Interval history: Review of systems Constitutional: No fevers, no malaise, no joint pains CVS: Denies chest pain, still complaining of orthopnea, detail exertion, bipedal edema GI: No abdominal pain, no diarrhea, no vomiting, no constipation Respiratory: , no wheezing, no coughing Hospitalist Physical - Physical exam Narrative exam: General.: Appears well, no distress, nontoxic HEENT: Moist mucous membranes, extraocular muscles intact, no lymphadenopathy Neck: supple Cardiac: S1-S2 heard Lungs: Decreased air entry at bases Abdomen: soft , nontender, nondistended, bowel sounds positive Extremities: Bipedal pitting edema Skin: no rash or lesions Neurologic: no gross focal deficits Psych: appropriate behavior, appropriate mood, corporative, judgment intact - Constitutional Vitals: Temp Pulse Resp BP Pulse Ox 97.4 F L 68 20 106/79 97 01/28/18 11:24 01/28/18 11:24 01/28/18 11:24 01/28/18 11:24 01/28/18 11:24 General appearance: Present: no acute distress, other (ill appearing) Results - Labs CBC & Chem 7: 01/28/18 05:33 01/29/18 05:23 Labs: Laboratory Last Values WBC 5.3 K/mm3 (4.5-11.0) 01/28/18 05:33 RBC 3.52 M/mm3 (3.65-5.03) L 01/28/18 05:33 Hgb 12.5 gm/dl (11.8-15.2) 01/28/18 05:33 Hct 37.2 % (35.5-45.6) 01/28/18 05:33 MCV 106 fl (84-94) H 01/28/18 05:33 MCH 35 pg (28-32) H 01/28/18 05:33 MCHC 34 % (32-34) 01/28/18 05:33 RDW 13.6 % (13.2-15.2) 01/28/18 05:33 Plt Count 153 K/mm3 (140-440) 01/28/18 05:33 Lymph % (Auto) 21.0 % (13.4-35.0) 01/23/18 01:21 [place] % (Auto) 5.7 % (0.0-7.3) 01/23/18 01:21 Eos % (Auto) 4.9 % (0.0-4.3) H 01/23/18 01:21 Baso % (Auto) 1.0 % (0.0-1.8) 01/23/18 01:21 Lymph # 0.7 K/mm3 (1.2-5.4) L 01/23/18 01:21 [place] # 0.2 K/mm3 (0.0-0.8) 01/23/18 01:21 Eos # 0.2 K/mm3 (0.0-0.4) 01/23/18 01:21 Baso # 0.0 K/mm3 (0.0-0.1) 01/23/18 01:21 Seg Neutrophils % 67.4 % (40.0-70.0) 01/23/18 01:21 Seg Neutrophils # 2.2 K/mm3 (1.8-7.7) 01/23/18 01:21 PT 34.7 Sec. (12.2-14.9) H 01/24/18 01:53 INR 3.17 (0.87-1.13) H 01/24/18 01:53 APTT 47.9 Sec. (24.2-36.6) H 01/16/18 13:48 D-Dimer 633.35 ng/mlDDU (0-234) H 01/16/18 17:51 Sodium 133 mmol/L (137-145) L 01/28/18 05:33 Potassium 4.3 mmol/L (3.6-5.0) 01/28/18 05:33 Chloride 96.7 mmol/L (98-107) L 01/28/18 05:33 Carbon Dioxide 23 mmol/L (22-30) 01/28/18 05:33 Anion Gap 18 mmol/L 01/28/18 05:33 BUN 57 mg/dL (9-20) H 01/28/18 05:33 Creatinine 1.4 mg/dL (0.8-1.5) 01/28/18 05:33 Estimated GFR > 60 ml/min 01/28/18 05:33 BUN/Creatinine Ratio 41 % 01/28/18 05:33 Glucose 86 mg/dL (75-100) 01/28/18 05:33 Calcium 9.5 mg/dL (8.4-10.2) 01/28/18 05:33 Phosphorus 4.50 mg/dL (2.5-4.5) 01/17/18 05:02 Magnesium 2.10 mg/dL (1.7-2.3) 01/26/18 06:04 Total Bilirubin 5.40 mg/dL (0.1-1.2) H 01/25/18 07:37 Direct Bilirubin 2.9 mg/dL (0-0.2) H 01/17/18 05:02 Indirect Bilirubin 1.5 mg/dL 01/17/18 05:02 AST 22 units/L (5-40) 01/25/18 07:37 ALT 14 units/L (7-56) 01/25/18 07:37 Alkaline Phosphatase 84 units/L (35-129) 01/25/18 07:37 Total Creatine Kinase 42 units/L (55-170) L 01/16/18 13:48 CK-MB (CK-2) 1.5 ng/mL (0.0-4.0) 01/16/18 13:48 CK-MB (CK-2) Rel Index 3.5 (0-4) 01/16/18 13:48 Troponin T 0.058 ng/mL (0.00-0.029) H 01/16/18 13:48 NT-Pro-B Natriuret Pep 37312 pg/mL (0-900) H 01/16/18 17:51 Total Protein 7.9 g/dL (6.3-8.2) 01/25/18 07:37 Albumin 3.5 g/dL (3.9-5) L 01/25/18 07:37 Albumin/Globulin Ratio 0.8 % 01/25/18 07:37 Triglycerides 79 mg/dL (2-149) 01/16/18 13:48 Cholesterol 84 mg/dL (50-199) 01/16/18 13:48 LDL Cholesterol Direct 49 mg/dL (50-130) L 01/16/18 13:48 HDL Cholesterol 30 mg/dL (40-59) L 01/16/18 13:48 Cholesterol/HDL Ratio 2.80 % 01/16/18 13:48 Urine Color Yellow (Yellow) 01/16/18 14:15 Urine Turbidity Clear (Clear) 01/16/18 14:15 Urine pH 6.0 (5.0-7.0) 01/16/18 14:15 Ur Specific [place] 1.010 (1.003-1.030) 01/16/18 14:15 Urine Protein <15 mg/dl mg/dL (Negative) 01/16/18 14:15 Urine Glucose (UA) Neg mg/dL (Negative) 01/16/18 14:15 Urine Ketones Neg mg/dL (Negative) 01/16/18 14:15 Urine Blood Neg (Negative) 01/16/18 14:15 Urine Nitrite Neg (Negative) 01/16/18 14:15 Urine Bilirubin Neg (Negative) 01/16/18 14:15 Urine Urobilinogen 4.0 mg/dL (<2.0) 01/16/18 14:15 Ur Leukocyte Esterase Neg (Negative) 01/16/18 14:15 Urine WBC (Auto) 2.0 /HPF (0.0-6.0) 01/16/18 14:15 Urine RBC (Auto) 4.0 /HPF (0.0-6.0) 01/16/18 14:15 U Epithel Cells (Auto) < 1.0 /HPF (0-13.0) 01/16/18 14:15 Hyaline Casts 3 /LPF 01/16/18 14:15 Digoxin 1.6 ng/mL (0.9-2.0) 01/16/18 17:51 Hepatitis A IgM Ab Nonreactive (NonReactive) 01/18/18 15:13 Hep Bs Antigen Non-reactive (Negative) 01/18/18 15:13 Hep B Core IgM Ab Non-reactive (NonReactive) 01/18/18 15:13 Hepatitis C Antibody Non-reactive (NonReactive) 01/18/18 15:13
[2018-01-28] MEDS: DELTASONE PO SCH (20:21)
[2018-01-29] MEDS: PERCOCET 5/325 PO PRN (00:16)
[2018-01-29] MEDS: MILRINONE-D5W 20 MG/100 ML 20 MG/100 ML BAG IV SCH ×3 (01:43→21:07)
[2018-01-29 06:14] LABS: Calcium 9.5 mg/dL (8.4-10.2)
[2018-01-29] MEDS: VITAMIN D3 PO SCH (09:22)
[2018-01-29] MEDS: LASIX IV SCH (09:23)
[2018-01-29] MEDS: XARELTO PO SCH (09:23)
[2018-01-29] MEDS: DELTASONE PO SCH (09:23)
[2018-01-29] MEDS: CORDARONE PO SCH ×3 (09:23→21:06)
[2018-01-29] MEDS: PRAVACHOL PO SCH (09:23)
[2018-01-29] MEDS: FOLVITE PO SCH (09:23)
[2018-01-29] MEDS: SODIUM CHLORIDE FLUSH SYRINGE 10 ML IV SCH ×2 (09:24→21:06)
[2018-01-29] MEDS: MIRALAX 3350 PO SCH (09:24)
--- NOTE | 2018-01-29 12:30 | Progress Note ---
Assessment and Plan Cont present cardiac management. Consider d/c of milrinone gtt tomorrow. Overall guarded prognosis. Pt wishes to be discharged on palliative care and is also considering hospice. He plans to move in with his daughter. The patient has been seen in conjunction with Dr. Prabhakar who agrees with the assessment and plan of care. - Patient Problems (1) Acute on chronic combined systolic and diastolic congestive heart failure Current Visit: Yes Status: Acute (2) Non-ischemic cardiomyopathy Current Visit: Yes Status: Chronic (3) S/P implantation of automatic cardioverter/defibrillator (AICD) Current Visit: Yes Status: Chronic (4) Permanent atrial fibrillation Current Visit: Yes Status: Chronic (5) Elevated troponin Current Visit: Yes Status: Acute (6) CKD (chronic kidney disease) Current Visit: Yes Status: Chronic (7) Hypertension Current Visit: Yes Status: Chronic (8) Total bilirubin, elevated Current Visit: Yes Status: Acute (9) EtOH dependence Current Visit: Yes Status: Chronic Qualifiers: Complication of substance-induced condition: with unspecified complication Subjective Date of service: 01/29/18 Principal diagnosis: Acute on chronic HFrEF, NICMP, Perm Afib with RVR, CKD, ETOH abuse Interval history: pt resting in bed, c/o RLE pain. tele reviewed- pt in AFib with HR 100s - 130s overnight, freq PVCs and NSVT. milrinone gtt infusing. Objective Last Vital Signs Temp 97.6 F 01/29/18 08:05 Pulse 57 L 01/29/18 08:05 Resp 22 01/29/18 08:05 BP 114/94 01/29/18 08:05 Pulse Ox 96 01/29/18 11:08 - Physical Examination General: No Apparent Distress HEENT: Positive: EOMI, Normocephaly, Mucus Membranes Moist Neck: Positive: neck supple, trachea midline Cardiac: Positive: irregularly irregular, S1/S2 Lungs: Positive: Decreased Breath Sounds Neuro: Positive: Grossly Intact Abdomen: Positive: Soft, Active Bowel Sounds. Negative: Tender Skin: Positive: Clear. Negative: Rash Musculoskeletal: Normal Range of Motion Extremities: Present: +1 Edema (BLE) - Labs and Meds Comprehensive Metabolic Panel 01/29/18 Range/Units 05:23 Sodium 129 L (137-145) mmol/L Potassium 5.2 H D (3.6-5.0) mmol/L Chloride 92.5 L (98-107) mmol/L Carbon Dioxide 23 (22-30) mmol/L BUN 55 H (9-20) mg/dL Creatinine 1.5 (0.8-1.5) mg/dL Glucose 108 H (75-100) mg/dL Calcium 9.5 (8.4-10.2) mg/dL - Imaging and Cardiology EKG: image reviewed Echo: report reviewed (11/2017 showed EF 5-10%, LV severely dilated, mild LVH, restrictive diastolic filling, RV mod dilated, RV systolic function mildly reduced, pacemaker wire in RV, RA severely dilated, severe MR, mod to severe TR , pulm HTN with RVSP 67mmHg, trivial pericardial effusion. ) Cardiac cath: report reviewed (10/2015 showed normal coronaries, large epicardial vessels, severe LV dysfunction. )
--- NOTE | 2018-01-29 14:26 | Progress Note ---
Assessment and Plan Assessment and plan: Patient is a 67 yo man with a history of systolic heart failure, non ischemic Cardiomyopathy with AICD, CKD 3, tobacco dependency, afib on Xarelto anticoagulation, hypertension, ETOH dependency and dyslipidemia who presented to [facility] ER on 01/16/2018 for SOB. He was found to have CHF Decompensation, Acute Respiratory Failure, and Atrial Fib with RVR. * LHC done 10/2015 showed normal coronaries, large epicardial vessels, severe LV dysfunction. * Echo done 11/2017 showed EF 5-10%, LV severely dilated, mild LVH, restrictive diastolic filling, RV mod dilated, RV systolic function mildly reduced, pacemaker wire in RV, RA severely dilated, severe MR, mod to severe TR, pulm HTN with RVSP 67mmHg, trivial pericardial effusion. * LE doppler neg for DVT Acute hypoxic respiratory failure: Supplemental oxygen, nebulizer therapy, NIPPV as clinically indicated, suspected secondary to CHF decompensation Acute on chronic systolic HF, worsening EF, 5-10%: treat with lasix, Cardiology is following, continue Milrinone drip Afib with RVR with hypercoaguble state: continue Xarelto and oral Amiodarone Moderate to severe protein calorie malnutrition: [employer] Offbearer consulted [facility] AICD in situ: continue tele monitoring for now ARF with CKD stage 3, vasomotor nephropathy: lasix reduced, Monitor renal function closely HTN with heart disease, Monitor BP, adjust meds as needed HLP, hold statin for abnormal LFT Abnormal LFT, resolved, hepatitis panel negative ETOH use, monitor for withdrawal: on CIWA protocol Tobacco use, middle school guidance counselor on stopping Noncompliance, counseling done DVT prophylaxis: on Xarelto Hyperkalemia: treated with kayexalate, daily bmp monitoring Pseudogout; continue prednisone Advance care planning: full code, had a long sit down discussion of prognosis, expectations and hospice Disposition: continue inpatient care, discussed palliative care with hospice with patient, he may go home with high flow oxygen and may need milrinone History Interval history: Review of systems Constitutional: No fevers, no malaise, no joint pains CVS: Denies chest pain, still complaining of orthopnea, detail exertion, bipedal edema GI: No abdominal pain, no diarrhea, no vomiting, no constipation Respiratory: , no wheezing, no coughing Hospitalist Physical - Physical exam Narrative exam: General.: Appears well, no distress, nontoxic HEENT: Moist mucous membranes, extraocular muscles intact, no lymphadenopathy Neck: supple Cardiac: S1-S2 heard Lungs: Decreased air entry at bases Abdomen: soft , nontender, nondistended, bowel sounds positive Extremities: Bipedal pitting edema Skin: no rash or lesions Neurologic: no gross focal deficits Psych: appropriate behavior, appropriate mood, corporative, judgment intact - Constitutional Vitals: Temp Pulse Resp BP Pulse Ox 97.5 F L 64 20 107/79 94 01/29/18 12:41 01/29/18 12:41 01/29/18 12:41 01/29/18 12:41 01/29/18 12:41 General appearance: Present: no acute distress, other (ill appearing) Results - Labs CBC & Chem 7: 01/28/18 05:33 01/29/18 05:23 Labs: Laboratory Last Values WBC 5.3 K/mm3 (4.5-11.0) 01/28/18 05:33 RBC 3.52 M/mm3 (3.65-5.03) L 01/28/18 05:33 Hgb 12.5 gm/dl (11.8-15.2) 01/28/18 05:33 Hct 37.2 % (35.5-45.6) 01/28/18 05:33 MCV 106 fl (84-94) H 01/28/18 05:33 MCH 35 pg (28-32) H 01/28/18 05:33 MCHC 34 % (32-34) 01/28/18 05:33 RDW 13.6 % (13.2-15.2) 01/28/18 05:33 Plt Count 153 K/mm3 (140-440) 01/28/18 05:33 Lymph % (Auto) 21.0 % (13.4-35.0) 01/23/18 01:21 [place] % (Auto) 5.7 % (0.0-7.3) 01/23/18 01:21 Eos % (Auto) 4.9 % (0.0-4.3) H 01/23/18 01:21 Baso % (Auto) 1.0 % (0.0-1.8) 01/23/18 01:21 Lymph # 0.7 K/mm3 (1.2-5.4) L 01/23/18 01:21 Jerome # 0.2 K/mm3 (0.0-0.8) 01/23/18 01:21 Eos # 0.2 K/mm3 (0.0-0.4) 01/23/18 01:21 Baso # 0.0 K/mm3 (0.0-0.1) 01/23/18 01:21 Seg Neutrophils % 67.4 % (40.0-70.0) 01/23/18 01:21 Seg Neutrophils # 2.2 K/mm3 (1.8-7.7) 01/23/18 01:21 PT 34.7 Sec. (12.2-14.9) H 01/24/18 01:53 INR 3.17 (0.87-1.13) H 01/24/18 01:53 APTT 47.9 Sec. (24.2-36.6) H 01/16/18 13:48 D-Dimer 633.35 ng/mlDDU (0-234) H 01/16/18 17:51 Sodium 129 mmol/L (137-145) L 01/29/18 05:23 Potassium 5.2 mmol/L (3.6-5.0) H D 01/29/18 05:23 Chloride 92.5 mmol/L (98-107) L 01/29/18 05:23 Carbon Dioxide 23 mmol/L (22-30) 01/29/18 05:23 Anion Gap 19 mmol/L 01/29/18 05:23 BUN 55 mg/dL (9-20) H 01/29/18 05:23 Creatinine 1.5 mg/dL (0.8-1.5) 01/29/18 05:23 Estimated GFR 57 ml/min 01/29/18 05:23 BUN/Creatinine Ratio 37 % 01/29/18 05:23 Glucose 108 mg/dL (75-100) H 01/29/18 05:23 Calcium 9.5 mg/dL (8.4-10.2) 01/29/18 05:23 Phosphorus 4.50 mg/dL (2.5-4.5) 01/17/18 05:02 Magnesium 2.10 mg/dL (1.7-2.3) 01/26/18 06:04 Total Bilirubin 5.40 mg/dL (0.1-1.2) H 01/25/18 07:37 Direct Bilirubin 2.9 mg/dL (0-0.2) H 01/17/18 05:02 Indirect Bilirubin 1.5 mg/dL 01/17/18 05:02 AST 22 units/L (5-40) 01/25/18 07:37 ALT 14 units/L (7-56) 01/25/18 07:37 Alkaline Phosphatase 84 units/L (35-129) 01/25/18 07:37 Total Creatine Kinase 42 units/L (55-170) L 01/16/18 13:48 CK-MB (CK-2) 1.5 ng/mL (0.0-4.0) 01/16/18 13:48 CK-MB (CK-2) Rel Index 3.5 (0-4) 01/16/18 13:48 Troponin T 0.058 ng/mL (0.00-0.029) H 01/16/18 13:48 NT-Pro-B Natriuret Pep 71814 pg/mL (0-900) H 01/16/18 17:51 Total Protein 7.9 g/dL (6.3-8.2) 01/25/18 07:37 Albumin 3.5 g/dL (3.9-5) L 01/25/18 07:37 Albumin/Globulin Ratio 0.8 % 01/25/18 07:37 Triglycerides 79 mg/dL (2-149) 01/16/18 13:48 Cholesterol 84 mg/dL (50-199) 01/16/18 13:48 LDL Cholesterol Direct 49 mg/dL (50-130) L 01/16/18 13:48 HDL Cholesterol 30 mg/dL (40-59) L 01/16/18 13:48 Cholesterol/HDL Ratio 2.80 % 01/16/18 13:48 Urine Color Yellow (Yellow) 01/16/18 14:15 Urine Turbidity Clear (Clear) 01/16/18 14:15 Urine pH 6.0 (5.0-7.0) 01/16/18 14:15 Ur Specific [place] 1.010 (1.003-1.030) 01/16/18 14:15 Urine Protein <15 mg/dl mg/dL (Negative) 01/16/18 14:15 Urine Glucose (UA) Neg mg/dL (Negative) 01/16/18 14:15 Urine Ketones Neg mg/dL (Negative) 01/16/18 14:15 Urine Blood Neg (Negative) 01/16/18 14:15 Urine Nitrite Neg (Negative) 01/16/18 14:15 Urine Bilirubin Neg (Negative) 01/16/18 14:15 Urine Urobilinogen 4.0 mg/dL (<2.0) 01/16/18 14:15 Ur Leukocyte Esterase Neg (Negative) 01/16/18 14:15 Urine WBC (Auto) 2.0 /HPF (0.0-6.0) 01/16/18 14:15 Urine RBC (Auto) 4.0 /HPF (0.0-6.0) 01/16/18 14:15 U Epithel Cells (Auto) < 1.0 /HPF (0-13.0) 01/16/18 14:15 Hyaline Casts 3 /LPF 01/16/18 14:15 Digoxin 1.6 ng/mL (0.9-2.0) 01/16/18 17:51 Hepatitis A IgM Ab Nonreactive (NonReactive) 01/18/18 15:13 Hep Bs Antigen Non-reactive (Negative) 01/18/18 15:13 Hep B Core IgM Ab Non-reactive (NonReactive) 01/18/18 15:13 Hepatitis C Antibody Non-reactive (NonReactive) 01/18/18 15:13
[2018-01-30] MEDS: MILRINONE-D5W 20 MG/100 ML 20 MG/100 ML BAG IV SCH (06:03)
[2018-01-30] MEDS: CORDARONE PO SCH ×2 (08:30→14:00)
[2018-01-30] MEDS: FOLVITE PO SCH (09:54)
[2018-01-30] MEDS: MIRALAX 3350 PO SCH (09:54)
[2018-01-30] MEDS: VITAMIN D3 PO SCH (09:54)
[2018-01-30] MEDS: XARELTO PO SCH (09:54)
[2018-01-30] MEDS: DELTASONE PO SCH (09:54)
[2018-01-30] MEDS: LASIX IV SCH (09:54)
[2018-01-30] MEDS: PRAVACHOL PO SCH (09:54)
[2018-01-30] MEDS: SODIUM CHLORIDE FLUSH SYRINGE 10 ML IV SCH ×2 (09:55→22:06)
--- NOTE | 2018-01-30 11:22 | Progress Note ---
Assessment and Plan D/c milrinone. Cont all other present cardiac management. Possible d/c home as early as tomorrow. Decrease amio dosage to 200mg daily. Consider re-introduction of home coreg and/or Entresto if/when BPs permit. Overall poor prognosis. Pt wishes to be discharged on palliative care and is also considering hospice. He plans to move in with his daughter. The patient has been seen in conjunction with Dr. Prabhakar who agrees with the assessment and plan of care. - Patient Problems (1) Acute on chronic combined systolic and diastolic congestive heart failure Current Visit: Yes Status: Acute (2) Non-ischemic cardiomyopathy Current Visit: Yes Status: Chronic (3) S/P implantation of automatic cardioverter/defibrillator (AICD) Current Visit: Yes Status: Chronic (4) Permanent atrial fibrillation Current Visit: Yes Status: Chronic (5) Elevated troponin Current Visit: Yes Status: Acute (6) CKD (chronic kidney disease) Current Visit: Yes Status: Chronic (7) Hypertension Current Visit: Yes Status: Chronic (8) Total bilirubin, elevated Current Visit: Yes Status: Acute (9) EtOH dependence Current Visit: Yes Status: Chronic Qualifiers: Complication of substance-induced condition: with unspecified complication Subjective Date of service: 01/30/18 Principal diagnosis: Acute on chronic HFrEF, NICMP, Perm Afib with RVR, CKD, ETOH abuse Interval history: pt resting in bed, states he is feeling much better today. tele reviewed- pt in AFib with HR 100s - 130s overnight, freq PVCs and NSVT. milrinone gtt infusing. Objective Last Vital Signs Temp 98.7 F 01/30/18 11:19 Pulse 79 01/30/18 11:19 Resp 18 01/30/18 11:19 BP 124/65 01/30/18 11:19 Pulse Ox 92 01/30/18 11:19 - Physical Examination General: No Apparent Distress HEENT: Positive: EOMI, Normocephaly, Mucus Membranes Moist Neck: Positive: neck supple, trachea midline Cardiac: Positive: irregularly irregular, S1/S2, Tachycardia Lungs: Positive: Decreased Breath Sounds Neuro: Positive: Grossly Intact Abdomen: Positive: Soft, Active Bowel Sounds. Negative: Tender Skin: Positive: Clear. Negative: Rash Musculoskeletal: Normal Range of Motion Extremities: Present: +1 Edema (BLE) - Imaging and Cardiology EKG: image reviewed Echo: report reviewed (11/2017 showed EF 5-10%, LV severely dilated, mild LVH, restrictive diastolic filling, RV mod dilated, RV systolic function mildly reduced, pacemaker wire in RV, RA severely dilated, severe MR, mod to severe TR , pulm HTN with RVSP 67mmHg, trivial pericardial effusion. ) Cardiac cath: report reviewed (10/2015 showed normal coronaries, large epicardial vessels, severe LV dysfunction. )
--- NOTE | 2018-01-30 12:37 | Progress Note ---
Assessment and Plan Assessment and plan: Patient is a 67 yo man with a history of systolic heart failure, non ischemic Cardiomyopathy with AICD, CKD 3, tobacco dependency, afib on Xarelto anticoagulation, hypertension, ETOH dependency and dyslipidemia who presented to [facility] ER on 01/16/2018 for SOB. He was found to have CHF Decompensation, Acute Respiratory Failure, and Atrial Fib with RVR. * LHC done 10/2015 showed normal coronaries, large epicardial vessels, severe LV dysfunction. * Echo done 11/2017 showed EF 5-10%, LV severely dilated, mild LVH, restrictive diastolic filling, RV mod dilated, RV systolic function mildly reduced, pacemaker wire in RV, RA severely dilated, severe MR, mod to severe TR, pulm HTN with RVSP 67mmHg, trivial pericardial effusion. * LE doppler neg for DVT Acute hypoxic respiratory failure: Supplemental oxygen, nebulizer therapy, NIPPV as clinically indicated, suspected secondary to CHF decompensation Acute on chronic systolic HF, worsening EF, 5-10%: treat with lasix, Cardiology is following, stop milrinone drip, observe for 24 hours, and possible dc tomorrow Afib with RVR with hypercoaguble state: continue Xarelto and oral Amiodarone Moderate to severe protein calorie malnutrition: Admissions Manager consulted [facility] AICD in situ: continue tele monitoring for now ARF with CKD stage 3, vasomotor nephropathy: lasix reduced, Monitor renal function closely HTN with heart disease, Monitor BP, adjust meds as needed HLP, hold statin for abnormal LFT Abnormal LFT, resolved, hepatitis panel negative ETOH use, monitor for withdrawal: on CIWA protocol Tobacco use, correctional counselor/case manager on stopping Noncompliance, counseling done DVT prophylaxis: on Xarelto Hyperkalemia: treated with kayexalate, daily bmp monitoring Pseudogout; continue prednisone Advance care planning: full code, had a long sit down discussion of prognosis, expectations and hospice Disposition: continue inpatient care, discussed palliative care with hospice with patient, he is being dc with oxygen -Fup with Dr Richards upon dc History Interval history: Review of systems Constitutional: No fevers, no malaise, no joint pains CVS: Denies chest pain, still complaining of orthopnea, detail exertion, bipedal edema GI: No abdominal pain, no diarrhea, no vomiting, no constipation Respiratory: , no wheezing, no coughing Hospitalist Physical - Physical exam Narrative exam: General.: Appears well, no distress, nontoxic HEENT: Moist mucous membranes, extraocular muscles intact, no lymphadenopathy Neck: supple Cardiac: S1-S2 heard Lungs: Decreased air entry at bases Abdomen: soft , nontender, nondistended, bowel sounds positive Extremities: Bipedal pitting edema, RLE tenderness Skin: no rash or lesions Neurologic: no gross focal deficits Psych: appropriate behavior, appropriate mood, corporative, judgment intact - Constitutional Vitals: Temp Pulse Resp BP Pulse Ox 98.7 F 79 18 124/65 92 01/30/18 11:19 01/30/18 11:19 01/30/18 11:19 01/30/18 11:19 01/30/18 11:19 General appearance: Present: no acute distress, other (ill appearing) Results - Labs CBC & Chem 7: 01/28/18 05:33 01/29/18 05:23 Labs: Laboratory Last Values WBC 5.3 K/mm3 (4.5-11.0) 01/28/18 05:33 RBC 3.52 M/mm3 (3.65-5.03) L 01/28/18 05:33 Hgb 12.5 gm/dl (11.8-15.2) 01/28/18 05:33 Hct 37.2 % (35.5-45.6) 01/28/18 05:33 MCV 106 fl (84-94) H 01/28/18 05:33 MCH 35 pg (28-32) H 01/28/18 05:33 MCHC 34 % (32-34) 01/28/18 05:33 RDW 13.6 % (13.2-15.2) 01/28/18 05:33 Plt Count 153 K/mm3 (140-440) 01/28/18 05:33 Lymph % (Auto) 21.0 % (13.4-35.0) 01/23/18 01:21 [place] % (Auto) 5.7 % (0.0-7.3) 01/23/18 01:21 Eos % (Auto) 4.9 % (0.0-4.3) H 01/23/18 01:21 Baso % (Auto) 1.0 % (0.0-1.8) 01/23/18 01:21 Lymph # 0.7 K/mm3 (1.2-5.4) L 01/23/18 01:21 Webb # 0.2 K/mm3 (0.0-0.8) 01/23/18 01:21 Eos # 0.2 K/mm3 (0.0-0.4) 01/23/18 01:21 Baso # 0.0 K/mm3 (0.0-0.1) 01/23/18 01:21 Seg Neutrophils % 67.4 % (40.0-70.0) 01/23/18 01:21 Seg Neutrophils # 2.2 K/mm3 (1.8-7.7) 01/23/18 01:21 PT 34.7 Sec. (12.2-14.9) H 01/24/18 01:53 INR 3.17 (0.87-1.13) H 01/24/18 01:53 APTT 47.9 Sec. (24.2-36.6) H 01/16/18 13:48 D-Dimer 633.35 ng/mlDDU (0-234) H 01/16/18 17:51 Sodium 129 mmol/L (137-145) L 01/29/18 05:23 Potassium 5.2 mmol/L (3.6-5.0) H D 01/29/18 05:23 Chloride 92.5 mmol/L (98-107) L 01/29/18 05:23 Carbon Dioxide 23 mmol/L (22-30) 01/29/18 05:23 Anion Gap 19 mmol/L 01/29/18 05:23 BUN 55 mg/dL (9-20) H 01/29/18 05:23 Creatinine 1.5 mg/dL (0.8-1.5) 01/29/18 05:23 Estimated GFR 57 ml/min 01/29/18 05:23 BUN/Creatinine Ratio 37 % 01/29/18 05:23 Glucose 108 mg/dL (75-100) H 01/29/18 05:23 Calcium 9.5 mg/dL (8.4-10.2) 01/29/18 05:23 Phosphorus 4.50 mg/dL (2.5-4.5) 01/17/18 05:02 Magnesium 2.10 mg/dL (1.7-2.3) 01/26/18 06:04 Total Bilirubin 5.40 mg/dL (0.1-1.2) H 01/25/18 07:37 Direct Bilirubin 2.9 mg/dL (0-0.2) H 01/17/18 05:02 Indirect Bilirubin 1.5 mg/dL 01/17/18 05:02 AST 22 units/L (5-40) 01/25/18 07:37 ALT 14 units/L (7-56) 01/25/18 07:37 Alkaline Phosphatase 84 units/L (35-129) 01/25/18 07:37 Total Creatine Kinase 42 units/L (55-170) L 01/16/18 13:48 CK-MB (CK-2) 1.5 ng/mL (0.0-4.0) 01/16/18 13:48 CK-MB (CK-2) Rel Index 3.5 (0-4) 01/16/18 13:48 Troponin T 0.058 ng/mL (0.00-0.029) H 01/16/18 13:48 NT-Pro-B Natriuret Pep 95020 pg/mL (0-900) H 01/16/18 17:51 Total Protein 7.9 g/dL (6.3-8.2) 01/25/18 07:37 Albumin 3.5 g/dL (3.9-5) L 01/25/18 07:37 Albumin/Globulin Ratio 0.8 % 01/25/18 07:37 Triglycerides 79 mg/dL (2-149) 01/16/18 13:48 Cholesterol 84 mg/dL (50-199) 01/16/18 13:48 LDL Cholesterol Direct 49 mg/dL (50-130) L 01/16/18 13:48 HDL Cholesterol 30 mg/dL (40-59) L 01/16/18 13:48 Cholesterol/HDL Ratio 2.80 % 01/16/18 13:48 Urine Color Yellow (Yellow) 01/16/18 14:15 Urine Turbidity Clear (Clear) 01/16/18 14:15 Urine pH 6.0 (5.0-7.0) 01/16/18 14:15 Ur Specific [place] 1.010 (1.003-1.030) 01/16/18 14:15 Urine Protein <15 mg/dl mg/dL (Negative) 01/16/18 14:15 Urine Glucose (UA) Neg mg/dL (Negative) 01/16/18 14:15 Urine Ketones Neg mg/dL (Negative) 01/16/18 14:15 Urine Blood Neg (Negative) 01/16/18 14:15 Urine Nitrite Neg (Negative) 01/16/18 14:15 Urine Bilirubin Neg (Negative) 01/16/18 14:15 Urine Urobilinogen 4.0 mg/dL (<2.0) 01/16/18 14:15 Ur Leukocyte Esterase Neg (Negative) 01/16/18 14:15 Urine WBC (Auto) 2.0 /HPF (0.0-6.0) 01/16/18 14:15 Urine RBC (Auto) 4.0 /HPF (0.0-6.0) 01/16/18 14:15 U Epithel Cells (Auto) < 1.0 /HPF (0-13.0) 01/16/18 14:15 Hyaline Casts 3 /LPF 01/16/18 14:15 Digoxin 1.6 ng/mL (0.9-2.0) 01/16/18 17:51 Hepatitis A IgM Ab Nonreactive (NonReactive) 01/18/18 15:13 Hep Bs Antigen Non-reactive (Negative) 01/18/18 15:13 Hep B Core IgM Ab Non-reactive (NonReactive) 01/18/18 15:13 Hepatitis C Antibody Non-reactive (NonReactive) 01/18/18 15:13
[2018-01-31] MEDS: XANAX PO PRN ×2 (05:38→21:50)
[2018-01-31] MEDS: PERCOCET 5/325 PO PRN (07:38)
[2018-01-31] MEDS: MIRALAX 3350 PO SCH (09:47)
[2018-01-31] MEDS: FOLVITE PO SCH (09:48)
[2018-01-31] MEDS: DELTASONE PO SCH (09:48)
[2018-01-31] MEDS: LASIX IV SCH (09:48)
[2018-01-31] MEDS: PRAVACHOL PO SCH (09:48)
[2018-01-31] MEDS: VITAMIN D3 PO SCH (09:48)
[2018-01-31] MEDS: CORDARONE PO SCH (09:48)
[2018-01-31] MEDS: XARELTO PO SCH (09:48)
[2018-01-31] MEDS: SODIUM CHLORIDE FLUSH SYRINGE 10 ML IV SCH ×2 (09:49→21:51)
--- NOTE | 2018-01-31 11:30 | Progress Note ---
Assessment and Plan off milrinone sig improved hold off on entresto due to relative hypotension going home to palliative care with daughter may be discharged once this is set up with social work clinically improved - Patient Problems (1) Acute on chronic HFrEF (heart failure with reduced ejection fraction) Current Visit: Yes Status: Acute (2) Acute on chronic combined systolic and diastolic congestive heart failure Current Visit: Yes Status: Acute (3) Atrial fibrillation with RVR Current Visit: Yes Status: Acute (4) CHF exacerbation Current Visit: Yes Status: Acute Qualifiers: Heart failure type: unspecified Qualified Code(s): I50.9 - Heart failure, unspecified (5) Permanent atrial fibrillation with rapid ventricular response Current Visit: Yes Status: Acute (6) AICD (automatic cardioverter/defibrillator) present Current Visit: Yes Status: Chronic (7) EtOH dependence Current Visit: Yes Status: Chronic Qualifiers: Complication of substance-induced condition: with unspecified complication Subjective Date of service: 01/31/18 Principal diagnosis: Acute on chronic HFrEF, NICMP, Perm Afib with RVR, CKD, ETOH abuse Interval history: feels better family at bedside Objective Vital Signs Temp Pulse Pulse Resp BP BP Pulse Ox 01/31/18 08:06 98.3 F 91 H 18 114/74 95 01/31/18 08:00 131 H 131 H 20 97 01/31/18 04:03 97.5 F L 50 L 18 96/78 95 01/31/18 01:35 18 96 01/30/18 23:27 97.6 F 46 L 18 106/78 98 01/30/18 22:13 96 01/30/18 22:00 110 H 01/30/18 20:52 20 98 01/30/18 20:00 97.6 F 50 L 18 98/81 94 01/30/18 16:13 98.8 F 60 20 103/73 92 - Physical Examination General: No Apparent Distress HEENT: Positive: EOMI, Normocephaly, Mucus Membranes Moist Neck: Positive: neck supple, trachea midline Neuro: Positive: Grossly Intact Abdomen: Positive: Soft, Active Bowel Sounds. Negative: Tender Skin: Positive: Clear. Negative: Rash Musculoskeletal: Normal Range of Motion Extremities: Present: +1 Edema (BLE) - Imaging and Cardiology EKG: image reviewed Echo: report reviewed (11/2017 showed EF 5-10%, LV severely dilated, mild LVH, restrictive diastolic filling, RV mod dilated, RV systolic function mildly reduced, pacemaker wire in RV, RA severely dilated, severe MR, mod to severe TR , pulm HTN with RVSP 67mmHg, trivial pericardial effusion. ) Cardiac cath: report reviewed (10/2015 showed normal coronaries, large epicardial vessels, severe LV dysfunction. )
--- NOTE | 2018-01-31 12:35 | Discharge Summary ---
Providers - Providers Date of Admission: 01/16/18 15:50 Attending physician: ELVIS CRANDALL MD 01/16/18 16:36 Consult to Physician [CONS] Stat Comment: Consulting Provider: GARY RICHARDS Physician Instructions: Reason For Exam: CHF, A.Fib with RVR 01/17/18 15:20 Physical Therapy Evaluation and Treat [CONS] Routine Comment: Reason For Exam: placement 01/19/18 09:32 Physical Therapy Evaluation and Treat [CONS] Routine Comment: home O2 requirement Reason For Exam: physical debility 01/26/18 08:06 Consult to Case Management [CONS] Routine Services Needed at Discharge: Traveling Accountant Home O2 Notified:: case reviewer Additional Physician Instructions: Primary care physician: PROCEDURE ANALYST Hospitalization Condition: Stable Hospital course: Patient is a 67 yo man with a history of systolic heart failure, non ischemic Cardiomyopathy with AICD, CKD 3, tobacco dependency, afib on Xarelto anticoagulation, hypertension, ETOH dependency and dyslipidemia who presented to [facility] ER on 01/16/2018 for SOB. He was found to have CHF Decompensation, Acute Respiratory Failure, and Atrial Fib with RVR. * LHC done 10/2015 showed normal coronaries, large epicardial vessels, severe LV dysfunction. * Echo done 11/2017 showed EF 5-10%, LV severely dilated, mild LVH, restrictive diastolic filling, RV mod dilated, RV systolic function mildly reduced, pacemaker wire in RV, RA severely dilated, severe MR, mod to severe TR, pulm HTN with RVSP 67mmHg, trivial pericardial effusion. * LE doppler neg for DVT Acute hypoxic respiratory failure: Supplemental oxygen, nebulizer therapy, NIPPV as clinically indicated, suspected secondary to CHF decompensation Acute on chronic systolic HF, worsening EF, 5-10%: treat with lasix, Cardiology is following, stop milrinone drip, observe for 24 hours, and possible dc tomorrow Afib with RVR with hypercoaguble state: continue Xarelto and oral Amiodarone Moderate to severe protein calorie malnutrition: Wood Sawyer consulted [facility] AICD in situ: continue tele monitoring for now ARF with CKD stage 3, vasomotor nephropathy: lasix reduced, Monitor renal function closely HTN with heart disease, Monitor BP, adjust meds as needed HLP, hold statin for abnormal LFT Abnormal LFT, resolved, hepatitis panel negative ETOH use, monitor for withdrawal: on CIWA protocol Tobacco use, anger control counselor on stopping Noncompliance, counseling done DVT prophylaxis: on Xarelto Hyperkalemia: treated with kayexalate, daily bmp monitoring Pseudogout; continue prednisone Advance care planning: full code, had a long sit down discussion of prognosis, expectations and hospice Disposition: continue inpatient care, discussed palliative care with hospice with patient, he is being dc with oxygen -Fup with Dr Richards upon dc Disposition: DC-50 TO HOSPICE (HOME) Time spent for discharge: 33 minutes Core Measure Documentation - Palliative Care Palliative Care/ Comfort Measures: Hospice Care - Core Measures Any of the following diagnoses?: heart failure - Heart Failure Discharge Requirements CLARK/ARB for LVSD if EF <40%: Yes Beta bailee at discharge: Yes Exam - Physical Exam Narrative exam: General.: Appears well, no distress, nontoxic HEENT: Moist mucous membranes, extraocular muscles intact, no lymphadenopathy Neck: supple Cardiac: S1-S2 heard Lungs: Decreased air entry at bases Abdomen: soft , nontender, nondistended, bowel sounds positive Extremities: Bipedal pitting edema, RLE tenderness Skin: no rash or lesions Neurologic: no gross focal deficits Psych: appropriate behavior, appropriate mood, corporative, judgment intact - Constitutional Vitals: Temp Pulse Resp BP Pulse Ox 97.7 F 41 L 18 106/74 95 01/31/18 12:16 01/31/18 12:16 01/31/18 12:16 01/31/18 12:16 01/31/18 12:16 Plan Follow up with: PRIMARY CARE, [Primary Care Provider] - 3-5 Days Prescriptions: Sennosides Tab [Senokot] 8.6 mg PO QHS PRN #30 tablet PRN Reason: Laxative Effect ALPRAZolam [Xanax TAB] 0.5 mg PO Q8H PRN #20 tablet PRN Reason: Anxiety Amiodarone [Cordarone 200 MG TAB] 200 mg PO DAILY #30 tablet Folic Acid [Folvite] 1 mg PO QDAY #30 tablet Furosemide [Lasix TAB] 40 mg PO QDAY #30 tablet oxyCODONE /ACETAMINOPHEN [Percocet 5/325 mg] 2 tab PO Q6H PRN #30 tablet PRN Reason: Pain, Moderate (4-6) Polyethylene Glycol 3350 [Miralax 3350] 17 gm PO QDAY #30 powd.pack Pravastatin [Pravachol] 20 mg PO QDAY #30 tablet predniSONE [Deltasone] 20 mg PO QDAY #5 tablet Rivaroxaban [Xarelto] 20 mg PO QDAY #30 tablet
[2018-02-01] MEDS: VITAMIN D3 PO SCH (09:37)
[2018-02-01] MEDS: FOLVITE PO SCH (09:37)
[2018-02-01] MEDS: DELTASONE PO SCH (09:37)
[2018-02-01] MEDS: CORDARONE PO SCH (09:37)
[2018-02-01] MEDS: MIRALAX 3350 PO SCH (09:37)
[2018-02-01] MEDS: XARELTO PO SCH (09:37)
[2018-02-01] MEDS: PRAVACHOL PO SCH (09:37)
[2018-02-01] MEDS: LASIX IV SCH (09:39)
[2018-02-01] MEDS: SODIUM CHLORIDE FLUSH SYRINGE 10 ML IV SCH (09:39)
[2018-02-01 10:06] VITALS: BP 79/61
--- NOTE | 2018-02-01 10:08 | Progress Note ---
Assessment and Plan sig improved hold off on entresto due to relative hypotension going home to palliative care with daughter may be discharged once this is set up with social work clinically improved - Patient Problems (1) Acute on chronic HFrEF (heart failure with reduced ejection fraction) Current Visit: Yes Status: Acute (2) Acute on chronic combined systolic and diastolic congestive heart failure Current Visit: Yes Status: Acute (3) Atrial fibrillation with RVR Current Visit: Yes Status: Acute (4) CHF exacerbation Current Visit: Yes Status: Acute Qualifiers: Heart failure type: unspecified Qualified Code(s): I50.9 - Heart failure, unspecified (5) Permanent atrial fibrillation with rapid ventricular response Current Visit: Yes Status: Acute (6) AICD (automatic cardioverter/defibrillator) present Current Visit: Yes Status: Chronic (7) EtOH dependence Current Visit: Yes Status: Chronic Qualifiers: Complication of substance-induced condition: with unspecified complication Subjective Date of service: 02/01/18 Principal diagnosis: Acute on chronic HFrEF, NICMP, Perm Afib with RVR, CKD, ETOH abuse Interval history: feels better family at bedside Objective Vital Signs Temp Pulse Pulse Pulse Resp BP BP 02/01/18 09:10 112/85 02/01/18 08:02 124 H 124 H 18 02/01/18 08:00 97.7 F 52 L 19 79/61 02/01/18 05:06 98.6 F 44 L 17 93/44 02/01/18 01:59 98.1 F 47 L 17 93/74 01/31/18 22:00 105 H 01/31/18 20:59 98.4 F 49 L 18 105/67 01/31/18 20:58 102 H 100 H 20 01/31/18 20:51 01/31/18 16:23 98.0 F 18 109/70 01/31/18 12:16 97.7 F 41 L 18 106/74 Pulse Ox 02/01/18 09:10 02/01/18 08:02 94 02/01/18 08:00 100 02/01/18 05:06 94 02/01/18 01:59 92 01/31/18 22:00 01/31/18 20:59 97 01/31/18 20:58 01/31/18 20:51 95 01/31/18 16:23 90 01/31/18 12:16 95 - Physical Examination General: No Apparent Distress HEENT: Positive: EOMI, Normocephaly, Mucus Membranes Moist Neck: Positive: neck supple, trachea midline Neuro: Positive: Grossly Intact Abdomen: Positive: Soft, Active Bowel Sounds. Negative: Tender Skin: Positive: Clear. Negative: Rash Musculoskeletal: Normal Range of Motion Extremities: Present: +1 Edema (BLE) - Imaging and Cardiology EKG: image reviewed Echo: report reviewed (11/2017 showed EF 5-10%, LV severely dilated, mild LVH, restrictive diastolic filling, RV mod dilated, RV systolic function mildly reduced, pacemaker wire in RV, RA severely dilated, severe MR, mod to severe TR , pulm HTN with RVSP 67mmHg, trivial pericardial effusion. ) Cardiac cath: report reviewed (10/2015 showed normal coronaries, large epicardial vessels, severe LV dysfunction. )
== END 2018-02-01 09:50 | disposition hospice, home (50) | DRG 280 ==
LOC: ED 13:07 → 4A 15:50
PROVIDERS: ADMIT Internal Medicine; ATTEND Internal Medicine
PROC: 4A033R1 Measurement of Arterial Saturation, Peripheral, Percutaneous Approach (ICD-10-PCS; principal; 2018-01-16)
DX: I21.4 Non-ST elevation (NSTEMI) myocardial infarction (principal); I50.43 Acute on chronic combined systolic (congestive) and diastolic (congestive) heart failure; J96.01 Acute respiratory failure with hypoxia; E43 Unspecified severe protein-calorie malnutrition; N17.0 Acute kidney failure with tubular necrosis; I13.0 Hypertensive heart and chronic kidney disease with heart failure and stage 1 through stage 4 chronic kidney disease, or unspecified chronic kidney disease; I47.1 Supraventricular tachycardia; I42.9 Cardiomyopathy, unspecified; I48.91 Unspecified atrial fibrillation; J44.9 Chronic obstructive pulmonary disease, unspecified; F17.210 Nicotine dependence, cigarettes, uncomplicated; K21.9 Gastro-esophageal reflux disease without esophagitis; E78.5 Hyperlipidemia, unspecified; F10.20 Alcohol dependence, uncomplicated; I27.20 Pulmonary hypertension, unspecified; I08.3 Combined rheumatic disorders of mitral, aortic and tricuspid valves; D72.819 Decreased white blood cell count, unspecified; N18.3 Chronic kidney disease, stage 3 (moderate); E87.6 Hypokalemia; E80.6 Other disorders of bilirubin metabolism; Z95.810 Presence of automatic (implantable) cardiac defibrillator; Z79.899 Other long term (current) drug therapy; Z79.01 Long term (current) use of anticoagulants; Z68.27 Body mass index [BMI] 27.0-27.9, adult; Z91.19 Patient's noncompliance with other medical treatment and regimen; Z71.6 Tobacco abuse counseling
CPT/HCPCS: 36415; 71045; 76700; 80048; 80053; 80061; 80074; 80162; 81001; 82248; 82550; 82553; 83735; 83880; 84100; 84484; 85025; 85027; 85379; 85610; 85730; 93005; 93010; 93970; 94760; A9270-GY; G8978-GP; G8980-GP; J0282; J1940; J2060; J2260; J3475; J7512